=== PATIENT | female | born 1950 | race Caucasian/White ===

== ENCOUNTER → 2016-03-13 | Outpatient (CLI) | payer OTHER ==
[~2016-03-13] VITALS: Ht 165.1 cm; Wt 79.4 kg
[~2016-03-13] MED LIST: LIDOCAINE 2% INJ 100 MG/5 ML SDV (FOR ANES.) As Ordered ONE; LITH300C PO; PROPOFOL 500 MG/50 ML VIAL As Ordered ONE; TYLE1TAB5 PO
[2016-03-13] MEDS: NS 1,000 ML IV SCH ×2 (10:00→12:15)
--- NOTE | 2016-03-13 13:01 | ROOR ---
Patient Name: Josie Jorge Procedure Date: 03/13/2016 12:42 PM Date of : 1950 Age: 65 Room: [facility] [place] Gender: Female Note Status: Finalized Procedure: Upper GI endoscopy Indications: Dysphagia Providers: Santy Kapoor MD Referring MD: NEREIDA REYES NP Requesting Provider: Medicines: Monitored Anesthesia Care Complications: No immediate complications. Procedure: Pre-Anesthesia Assessment: - The heart rate, respiratory rate, oxygen saturations, blood pressure, adequacy of pulmonary ventilation, and response to care were monitored throughout the procedure. The Endoscope was introduced through the mouth, and advanced to the second part of duodenum. The upper GI endoscopy was accomplished without difficulty. The patient tolerated the procedure well. Findings: The Z-line was regular and was found 39 cm from the incisors. A small hiatus hernia was present. No other significant abnormalities were identified in a careful examination of the stomach. The exam of the duodenum was otherwise normal. Impression: - Z-line regular, 39 cm from the incisors. - Small hiatus hernia. - No specimens collected. - The examination was otherwise normal. Recommendation: - Patient has a contact number available for emergencies. The signs and symptoms of potential delayed complications were discussed with the patient. Return to normal activities tomorrow. Written discharge instructions were provided to the patient. - High fiber diet. - Discharge patient to home. - Continue present medications. - Return to referring physician. - The findings and recommendations were discussed with the patient's family. Santy Kapoor MD Santy Kapoor MD 03/13/2016 1:00:39 PM This report has been signed electronically. Number of Addenda: 0 Note Initiated On: 03/13/2016 12:42 PM Estimated Blood Loss: Estimated blood loss: none.
--- NOTE | 2016-03-13 13:17 | ROOR ---
Patient Name: Josie Jorge Procedure Date: 03/13/2016 12:43 PM Date of : 1950 Age: 65 Room: [facility] Gender: Female Note Status: Finalized Procedure: Colonoscopy to Cecum Indications: Screening for colorectal malignant neoplasm, Last colonoscopy 10 years ago Providers: Santy Kapoor MD Referring MD: NEREIDA REYES NP Requesting Provider: Medicines: Monitored Anesthesia Care Complications: No immediate complications. Procedure: Pre-Anesthesia Assessment: - The heart rate, respiratory rate, oxygen saturations, blood pressure, adequacy of pulmonary ventilation, and response to care were monitored throughout the procedure. The Colonoscope was introduced through the anus and advanced to the cecum, identified by appendiceal orifice and ileocecal valve. The colonoscopy was performed without difficulty. The patient tolerated the procedure well. The quality of the bowel preparation was unsatisfactory. Findings: The perianal and digital rectal examinations were normal. Non-bleeding internal hemorrhoids were found during retroflexion. The hemorrhoids were small and Grade I (internal hemorrhoids that do not prolapse). Liquid stool was found in the entire colon, precluding visualization. No additional abnormalities were found on retroflexion. Impression: - Preparation of the colon was unsatisfactory. - Non-bleeding internal hemorrhoids. - Stool in the entire examined colon. - No specimens collected. - The exam was otherwise normal to the cecum. Recommendation: - Patient has a contact number available for emergencies. The signs and symptoms of potential delayed complications were discussed with the patient. Return to normal activities tomorrow. Written discharge instructions were provided to the patient. - High fiber diet. - Discharge patient to home. - Continue present medications. - Repeat colonoscopy in 3 years because the bowel preparation was suboptimal. - Return to referring physician. - The findings and recommendations were discussed with the patient's family. Santy Kapoor MD Santy Kaopor MD 03/13/2016 1:17:43 PM This report has been signed electronically. Number of Addenda: 0 Note Initiated On: 03/13/2016 12:43 PM Estimated Blood Loss: Estimated blood loss: none.
[2016-03-13 13:40] VITALS: BP 126/69
== END ==
LOC: M OPP 11:06
PROVIDERS: ATTEND Internal Medicine Gastroenterology
DX: Z12.11 Encounter for screening for malignant neoplasm of colon (principal); K64.0 First degree hemorrhoids; R12 Heartburn; K44.9 Diaphragmatic hernia without obstruction or gangrene; E78.5 Hyperlipidemia, unspecified; G47.30 Sleep apnea, unspecified; R06.83 Snoring; M17.11 Unilateral primary osteoarthritis, right knee; Z80.3 Family history of malignant neoplasm of breast; Z79.899 Other long term (current) drug therapy

== ENCOUNTER → 2016-09-30 | Outpatient (REF) | payer MEDICARE ==
[~2016-09-30] MED LIST changes: -LIDOCAINE 2% INJ 100 MG/5 ML SDV (FOR ANES.) As Ordered ONE; -PROPOFOL 500 MG/50 ML VIAL As Ordered ONE
[2016-09-30 17:08] LABS: ALBUMIN 3.8 GM/DL (3.2-5.2); ALBUMIN/GLOBULIN RATIO 1.23 (1.00-1.93); BILIRUBIN,TOTAL 0.5 MG/DL (0.2-1.0); CALCIUM LEVEL 9.8 MG/DL (8.8-10.2); CREATININE FOR GFR 1.72 MG/DL (0.55-1.02); GLOMERULAR FILTRATION RATE 31.7 (>45); POTASSIUM SERUM 4.2 MEQ/L (3.5-5.1); THYROXINE (T4) 8.7 UG/DL (4.5-12.0); TOTAL PROTEIN 6.9 GM/DL (6.4-8.2)
[2016-09-30 17:10] LABS: LITHIUM LEVEL 0.96 MEQ/L (0.60-1.20)
== END ==
LOC: M LABDRAW1 15:52
PROVIDERS: ATTEND Psychiatry & Neurology Psychiatry
DX: E07.9 Disorder of thyroid, unspecified (principal)

== ENCOUNTER → 2017-01-31 | Outpatient (CLI) | payer MEDICARE ==
--- NOTE | 2017-01-31 10:33 | REPMRS ---
Patient History The patient states she had a clinical breast exam in 11/2016. Patient is postmenopausal. Family history of breast cancer in mother at age 70. Digital Woman Screen Mammo: January 31, 2017 - Exam #: [id number] Bilateral CC and MLO view(s) were taken. Technologist: Claudia Mansfield Technologist Prior study comparison: December 01, 2015, digital woman screen mammo performed at [facility]. February 23, 2014, bilateral digital mammo screening bilat, performed at [facility]. September 17, 2012, bilateral digital mammo screening bilat, performed at [facility]. FINDINGS: There are scattered fibroglandular densities. There has been no change in the appearance of the mammogram from the prior studies. There is a mild amount of residual fibroglandular tissue which is fairly symmetric. There is no interval development of dominant mass, architectural distortion, or clustered microcalcification suggestive of malignancy. Scattered lymph nodes are seen in the axillae. No significant changes when compared with prior studies. ASSESSMENT: BI-RADS/ACR category 2 mammogram. Benign finding(s). Recommendation Routine screening mammogram in 1 year (for women over age 40). This mammogram was interpreted with the aid of an FDA-approved computer-aided dectection system. A. Negative x-ray reports should not delay biopsy if a dominant or clinically suspicious mass is present. B. Four to eight percent of cancers are not identified by mammography. C. Adenosis and dense breast may obscure an underlying neoplasm. Electronically Signed By: Phil Eden MD 01/31/17 [id number]
== END ==
LOC: M WHC 08:26
PROVIDERS: ATTEND Nurse Practitioner Family
DX: Z12.31 Encounter for screening mammogram for malignant neoplasm of breast (principal); Z78.0 Asymptomatic menopausal state; Z85.3 Personal history of malignant neoplasm of breast

== ENCOUNTER → 2017-06-04 | Outpatient (REF) | payer MEDICARE ==
[2017-06-04 13:01] LABS: ALBUMIN 3.6 GM/DL (3.2-5.2); ALBUMIN/GLOBULIN RATIO 1.16 (1.00-1.93); ALKALINE PHOSPHATASE 89 U/L (45-117); ALT/SGPT 19 U/L (12-78); ANION GAP 9 MEQ/L (8-16); AST/SGOT 13 U/L (7-37); BILIRUBIN,TOTAL 0.4 MG/DL (0.2-1.0); BLOOD UREA NITROGEN 17 MG/DL (7-18); CALCIUM LEVEL 9.6 MG/DL (8.8-10.2); CARBON DIOXIDE LEVEL 22 MEQ/L (21-32); CHLORIDE LEVEL 112 MEQ/L (98-107); CREATININE FOR GFR 1.96 MG/DL (0.55-1.30); FREE THYROXINE INDEX 2.9 % (1.3-4.8); GLOMERULAR FILTRATION RATE 27.2 (>45); GLUCOSE, FASTING 268 MG/DL (70-100); POTASSIUM SERUM 3.8 MEQ/L (3.5-5.1); SODIUM LEVEL 143 MEQ/L (136-145); T UPTAKE 33 % (30-39); THYROXINE (T4) 8.9 UG/DL (4.5-12.0); TOTAL PROTEIN 6.7 GM/DL (6.4-8.2)
[2017-06-04 13:08] LABS: LITHIUM LEVEL 0.94 MEQ/L (0.60-1.20)
== END ==
LOC: M LABDRAW1 11:54
DX: Z79.899 Other long term (current) drug therapy (principal)
CPT/HCPCS: 80178

== ENCOUNTER → 2017-07-16 | Outpatient (REF) | payer MEDICARE ==
[2017-07-17 10:02] LABS: APPEARANCE, URINE CLEAR (CLEAR); BACTERIA, URINE AUTO NEGATIVE (NEGATIVE); BILIRUBIN, URINE AUTO NEGATIVE (NEGATIVE); BLOOD, URINE BLOOD NEGATIVE (NEGATIVE); COLOR, URINE STRAW (YELLOW); GLUCOSE, URINE (UA) AUTO NEGATIVE (NEGATIVE); KETONE, URINE AUTO NEGATIVE (NEGATIVE); LEUKOCYTE ESTERASE, URINE AUTO NEGATIVE (NEGATIVE); NITRITE, URINE AUTO NEGATIVE (NEGATIVE); PROTEIN, URINE AUTO NEGATIVE (NEGATIVE); RBC, URINE AUTO 0 /HPF (0-3); SPECIFIC GRAVITY URINE AUTO 1.005 (1.002-1.035); SQUAMOUS EPITHELIAL CELL UR AU 1 /HPF (0-6); UROBILINOGEN, URINE AUTO 0.2 mg/dL (0.0-2.0); WBC, URINE AUTO 1 /HPF (0-3)
== END ==
LOC: M SMT 09:36
DX: R35.0 Frequency of micturition (principal)
CPT/HCPCS: 81001

== ENCOUNTER → 2018-02-03 | Outpatient (CLI) | payer MEDICARE | LOC: M RAD 09:20 | DX: Z12.31 Encounter for screening mammogram for malignant neoplasm of breast (principal) | CPT/HCPCS: 77067 ==

== ENCOUNTER 2018-02-04 01:30 | Emergency (ER) | payer MEDICARE | END 2018-02-04 02:12 | disposition home or self-care (01) | LOC: M ED 01:30 | DX: K11.20 Sialoadenitis, unspecified (principal); F31.9 Bipolar disorder, unspecified; M19.90 Unspecified osteoarthritis, unspecified site; Z79.899 Other long term (current) drug therapy | CPT/HCPCS: 99282 ==

== ENCOUNTER → 2018-02-13 | Outpatient (REF) | payer MEDICARE ==
[~2018-02-13] MED LIST changes: +[UNRECOGNIZED DRUG - OTHER] MT
[2018-02-13 12:21] LABS: ALBUMIN 3.8 GM/DL (3.2-5.2); BILIRUBIN,TOTAL 0.4 MG/DL (0.2-1.0); CALCIUM LEVEL 9.8 MG/DL (8.8-10.2); CREATININE FOR GFR 1.95 MG/DL (0.55-1.30); GLOMERULAR FILTRATION RATE 27.3 (>45); LITHIUM LEVEL 1.04 MEQ/L (0.60-1.20); POTASSIUM SERUM 4.3 MEQ/L (3.5-5.1); TOTAL PROTEIN 6.8 GM/DL (6.4-8.2)
== END ==
LOC: M LABDRAW1 10:05
PROVIDERS: ATTEND Psychiatry & Neurology Psychiatry
DX: Z51.81 Encounter for therapeutic drug level monitoring (principal); Z79.899 Other long term (current) drug therapy
CPT/HCPCS: 36415; 80053; 80178; G0463

== ENCOUNTER → 2018-03-03 | Outpatient (CLI) | payer MEDICARE ==
--- NOTE | 2018-03-03 09:28 | REP ---
URINARY TRACT SONOGRAPHY: HISTORY: Chronic kidney disease stage III. FINDINGS: The urinary bladder is not well distended at the time of scanning. Incidental note is made of a cystic lesion in the right adnexa consistent with an ovarian cyst. This measures 5.3 x 4.3 x 4.0 cm in greatest diameter. No free fluid. Renal cortical echogenicity pattern is increased bilaterally consistent with chronic medical renal disease. There is no evidence of hydronephrosis on either side. Mild diffuse cortical thinning is seen. Right renal dimensions are 10.3 x 5.1 x 4.6 cm. Left kidney measures 10.2 x 5.1 x 5.0 cm. No mass lesion is seen. There is a 1 cm cyst in the lower pole of the left kidney. There are two cysts in the periphery of the right kidney including a 1.7 cm cyst in its lower pole and a 2.8 cm cyst in the periphery of the mid pole on the right. IMPRESSION: Small bilateral renal cysts. Hyperechoic renal cortical parenchyma consistent with chronic medical renal disease. No hydronephrosis. Incidental 5.3 cm simple cyst in the right adnexal region consistent with a right ovarian cyst. Electronically Signed by Mainor Cuevas MD 03/03/2018 01:27 P
== END ==
LOC: M RAD 07:12
PROVIDERS: ATTEND Internal Medicine Nephrology
DX: N18.3 Chronic kidney disease, stage 3 (moderate) (principal); E21.0 Primary hyperparathyroidism

== ENCOUNTER → 2018-03-05 | Outpatient (CLI) | payer MEDICARE ==
--- NOTE | 2018-03-09 14:53 | DEXA ---
AP SPINE L1 - L4 1.070 -1.0 0.6 LT FEMUR TOTAL 0.918 -0.7 0.6 LT NECK 0.832 -1.5 0.0 RT FEMUR TOTAL 0.830 -1.4 -0.1 RT NECK 0.749 -2.1 -0.6 TOTAL BODY TOTAL OTHER COMMENTS: There is low bone density of the spine and hips. The density of the spine has increased 1.6% since 10/31/2010. The density of the left hip has decreased 9.6% since 10/31/2010. The density of the right hip has decreased 11.9% since 10/31/2010. FOLLOW-UP: Recommendation for the next bone density exam: 2 years. SUSANNE
== END ==
LOC: M WHC 06:51
PROVIDERS: ATTEND Internal Medicine Nephrology
DX: M81.8 Other osteoporosis without current pathological fracture (principal); E21.0 Primary hyperparathyroidism

== ENCOUNTER → 2018-03-16 | Outpatient (CLI) | payer MEDICARE ==
--- NOTE | 2018-03-16 15:34 | REP ---
NUCLEAR PARATHYROID SESTAMIBI SCAN WITH SPECT IMAGING: Following the intravenous administration of 27.5 mCi of technetium-99m sestamibi, images of the neck are performed in the anterior and both anterior oblique projections at 15 minutes and 3 hours postinjection. Additional delayed SPECT images are performed in the axial, coronal, and sagittal planes. Initial images show diffuse increased uptake throughout both lobes of the thyroid. On delayed images there is bilateral symmetrical washout. However there is a small focus of mildly increased activity asymmetrically in the region of the superior left thyroid bed suggesting a parathyroid adenoma at this location. IMPRESSION: Findings suggestive of parathyroid adenoma in the region of the superior left thyroid bed. Electronically Signed by Wilbert Lopez MD 03/16/2018 05:11 P
== END ==
LOC: M RAD 09:27
PROVIDERS: ATTEND Internal Medicine Nephrology
DX: E21.3 Hyperparathyroidism, unspecified (principal); N18.3 Chronic kidney disease, stage 3 (moderate)
CPT/HCPCS: 78070; 78803; A9500

== ENCOUNTER → 2018-08-14 | Outpatient (REF) | payer MEDICARE | LOC: M LABDRAW1 13:34 | PROVIDERS: ATTEND Psychiatry & Neurology Psychiatry | DX: Z79.899 Other long term (current) drug therapy (principal) ==

== ENCOUNTER → 2019-02-08 | Outpatient (REF) | payer MEDICARE | LOC: M LABDRAW1 11:36 | PROVIDERS: ATTEND Psychiatry & Neurology Psychiatry | DX: Z79.899 Other long term (current) drug therapy (principal) ==

== ENCOUNTER 2019-02-20 15:18 | Emergency (ER) | payer MEDICARE ==
[~2019-02-20] VITALS: Ht 165.1 cm; Wt 79.6 kg
[2019-02-20] MEDS ORDERED: SIMV20TA22 PO (15:29)
[2019-02-20] MEDS ORDERED: CALC1CAP31 PO (15:29)
[2019-02-20 16:49] LABS: AMPHETAMINES LEVEL URINE NEGATIVE (NEGATIVE); BARBITURATES URINE NEGATIVE (NEGATIVE); BENZODIAZEPINES URINE NEGATIVE (NEGATIVE); CANNABINOIDS URINE NEGATIVE (NEGATIVE); COCAINE METABOLITE URINE NEGATIVE (NEGATIVE); METHADONE URINE NEGATIVE (NEGATIVE); OPIATES URINE NEGATIVE (NEGATIVE); PHENCYCLIDINE URINE NEGATIVE (NEGATIVE)
[2019-02-20 16:52] LABS: HEMATOCRIT 40.7 % (36.0-47.0); HEMOGLOBIN 12.7 g/dl (12.0-15.5); MEAN CORPUSCULAR HGB CONC 31.2 g/dl (32.0-36.5); MEAN CORPUSCULAR VOLUME 89.8 fl (80.0-96.0); PLATELET COUNT, AUTOMATED 333 10^3/uL (150-450); RED BLOOD COUNT 4.53 10^6/uL (4.00-5.40); WHITE BLOOD COUNT 9.6 10^3/uL (4.0-10.0)
[2019-02-20 17:01] LABS: ACETAMINOPHEN LEVEL < 2.0 UG/ML (10.0-30.0); ALT/SGPT 20 U/L (12-78); BILIRUBIN,DIRECT 0.1 MG/DL (0.0-0.2); BILIRUBIN,TOTAL 0.5 MG/DL (0.2-1.0); BLOOD UREA NITROGEN 23 MG/DL (7-18); CALCIUM LEVEL 9.2 MG/DL (8.8-10.2); CARBON DIOXIDE LEVEL 20 MEQ/L (21-32); CHLORIDE LEVEL 111 MEQ/L (98-107); ETHYL ALCOHOL (ETHANOL) < 0.003 % (0.000-0.010); GLOMERULAR FILTRATION RATE 22.5 (>45); GLUCOSE, FASTING 135 MG/DL (70-100); POTASSIUM SERUM 4.4 MEQ/L (3.5-5.1); SALICYLATE LEVEL < 1.7 MG/DL (5.0-30.0); SODIUM LEVEL 139 MEQ/L (136-145); TOTAL PROTEIN 7.2 GM/DL (6.4-8.2)
[2019-02-20 17:49] VITALS: BP 155/79
[2019-02-20 17:53] LABS: LITHIUM LEVEL 1.38 MEQ/L (0.60-1.20)
== END 2019-02-20 17:59 | disposition home or self-care (01) ==
LOC: M ED 15:18
DX: F41.9 Anxiety disorder, unspecified (principal); F31.9 Bipolar disorder, unspecified
CPT/HCPCS: 80048; 80076; 80178; 80307; 84443; 85027; 99284; G0480

== ENCOUNTER 2019-02-25 11:09 | Observation (INO) | payer MEDICARE ==
[~2019-02-25] VITALS: Ht 165.1 cm; Wt 80.0 kg
[~2019-02-25 11:09] MED LIST changes: +CALC1CAP31 PO; +SIMV20TA22 PO
[2019-02-25] MEDS ORDERED: SOLI10TA (11:18)
[2019-02-25 12:43] LABS: HEMATOCRIT 39.4 % (36.0-47.0); HEMOGLOBIN 12.1 g/dl (12.0-15.5); MEAN CORPUSCULAR HGB CONC 30.7 g/dl (32.0-36.5); MEAN CORPUSCULAR VOLUME 91.2 fl (80.0-96.0); PLATELET COUNT, AUTOMATED 361 10^3/uL (150-450); RED BLOOD COUNT 4.32 10^6/uL (4.00-5.40); WHITE BLOOD COUNT 6.9 10^3/uL (4.0-10.0)
[2019-02-25 13:26] LABS: ACETAMINOPHEN LEVEL < 2.0 UG/ML (10.0-30.0); ALBUMIN 3.7 GM/DL (3.2-5.2); ALT/SGPT 18 U/L (12-78); BILIRUBIN,DIRECT < 0.1 MG/DL (0.0-0.2); BILIRUBIN,TOTAL 0.4 MG/DL (0.2-1.0); BLOOD UREA NITROGEN 19 MG/DL (7-18); CALCIUM LEVEL 9.1 MG/DL (8.8-10.2); CARBON DIOXIDE LEVEL 21 MEQ/L (21-32); CHLORIDE LEVEL 114 MEQ/L (98-107); CREATININE FOR GFR 2.29 MG/DL (0.55-1.30); ETHYL ALCOHOL (ETHANOL) < 0.003 % (0.000-0.010); GLOMERULAR FILTRATION RATE 22.6 (>45); GLUCOSE, FASTING 142 MG/DL (70-100); LITHIUM LEVEL 2.07 MEQ/L (0.60-1.20); SALICYLATE LEVEL < 1.7 MG/DL (5.0-30.0); SODIUM LEVEL 141 MEQ/L (136-145); TOTAL PROTEIN 6.8 GM/DL (6.4-8.2)
[2019-02-25 13:32] LABS: AMPHETAMINES LEVEL URINE NEGATIVE (NEGATIVE); BARBITURATES URINE NEGATIVE (NEGATIVE); BENZODIAZEPINES URINE NEGATIVE (NEGATIVE); CANNABINOIDS URINE NEGATIVE (NEGATIVE); COCAINE METABOLITE URINE NEGATIVE (NEGATIVE); METHADONE URINE NEGATIVE (NEGATIVE); OPIATES URINE NEGATIVE (NEGATIVE); PHENCYCLIDINE URINE NEGATIVE (NEGATIVE)
--- NOTE | 2019-02-25 13:32 | REP ---
CT brain: 02/25/2019. Indication: Slurred speech. Stroke. Comparison: MRI brain dated 11/15/2010. Technique: Unenhanced axial CT images of the brain were obtained from skull base to vertex with coronal reconstructions provided. Findings: There is no evidence of acute intracranial hemorrhage, acute cortical infarction, mass effect or hydrocephalous. Hyperdensity within the anterior interhemispheric fissure is noted on page/image seven on the axial images. Mild diffuse volume loss is present. Impression: Small hyperdensity within the anterior interhemispheric fissure is present and clot within an A2 segment is not excluded. There are no additional findings of acute stroke. No intracranial hemorrhage. Electronically Signed by Alen Herndon DO 02/25/2019 01:24 P
--- NOTE | 2019-02-25 15:14 | REP ---
MRI brain: 02/25/2019. Indication: Stroke. Comparison: 11/15/2010. Technique: Multiplanar short and long TR sequences of the brain were performed without IV Gadolinium. Findings: Image quality is degraded by patient motion. There are no areas of restricted diffusion to suggest an acute infarction. There is no evidence of intracranial mass effect, hydrocephalus or hemorrhage. No significant signal abnormalities are present within the brainstem or brain parenchyma. The midline structures, and craniocervical junction are unremarkable. The large intracranial flow voids are also unremarkable. Impression: No acute intracranial process detected. Electronically Signed by Alen Herndon DO 02/25/2019 03:05 P
--- NOTE | 2019-02-25 15:15 | REP ---
Intracranial MRA: 02/25/2019. Indication: Stroke. Abnormal CT. Comparison: None. Technique: 3-D [id number] imaging of the intracranial vessels were performed with rotational imaging provided. Findings: Image quality is degraded by patient motion. There is no intracranial high-grade stenosis, vessel occlusion, aneurysm or AVM. Specifically, the visualized bilateral CEZAR vessels are patent. Impression: No intracranial high-grade stenosis or vessel occlusion detected. Electronically Signed by Alen Herndon DO 02/25/2019 03:07 P
[2019-02-25] MEDS ORDERED: SYST1SOL OU (15:49)
[2019-02-25] MEDS ORDERED: POLYVINYL ALCOHOL OPHTH SOLN 15 ML(LIQUITEARS) OU PRN (18:00)
--- NOTE | 2019-02-25 18:11 | HPEPDOC ---
[facility] Medical History & Physical Date of Admission Feb 25, 2019 Date of Service: Feb 25, 2019 Attending Physician: DOC AMEZQUITA MD History and Physical CHIEF COMPLAINT: confusion, tremors HISTORY OF PRESENT ILLNESS: 68 y.o female w/ PMH of CKD IV, Bipolar depression & HLD presents from home with confusion & tremors. These symptoms started 1-2 weeks ago, have been progressively worsening, she presented to the ED 4 days ago for the same symptoms and was discharged with outpatient follow up. She returned today as symptoms have continued worsening. She has associated symptoms consisting of difficulty with word finding, unnecessary repetition & slurred speech. She underwent CT & MRI head in the ED with no evidence of acute pathology. She was found to have elevated lithium levels of >2, of note, lithium level was 1.36 when she presented 4 days ago. After discussion with daughter, it appears that patient also has an bottle of lithium from 2018 mixed in with her medications so it may be that she was taking double the dose from two separate bottles. Patient is unsure whether that was the case and reports that she just takes pills from all her bottles without actually reading the labels everyday. She denies any SOB, CP, nausea, vomiting, abdominal pain, diarrhea or constipation. 10 point review of system was negative except for above. PAST MEDICAL HISTORY: 1. CKD IV 2. Bipolar depression 3. HLD PAST SURGICAL HISTORY: 1. Parathyroidectomy SOCIAL HISTORY: Never smoker social alcohol use denies drug use FAMILY HISTORY: Mother had breast cancer ALLERGIES: Please see below. HOME MEDICATIONS: Please see below. PHYSICAL EXAMINATION: VITAL SIGNS: See below GENERAL APPEARANCE: No distress HEENT: Normocephalic, atraumatic, moist mucous membranes CARDIOVASCULAR: S1, S2, no murmurs LUNGS: clear to auscultation ABDOMEN: Soft, non-tender, non-distended, +BS EXTREMITIES: ROM intact NEUROLOGICAL: No focal deficits PSYCHIATRIC: calm & cooperative LABORATORY DATA: See below. IMAGING: CT & MRI head negative for acute pathology MICROBIOLOGY: Please see below. ASSESSMENT: 68 y.o female w/ PMH of CKD IV, Bipolar depression & HLD is admitted for [place] toxicity. PLAN: 1. [place] toxicity - Likely accidental overdose, admit for observation, Tele monitoring, will trend [place] levels. Renal function stable 2. CKD IV - unknown etiology, creatinine close to baseline, will monitor. 3. Bipolar Depression - Hold [place] for now, will restart when levels within therapeutic range. 4. HLD - continue statin DVT Prophylaxis - Heparin SubQ GI Prophylaxis - not needed Vital Signs Vital Signs Date Time Temp Pulse Resp B/P (MAP) Pulse Ox O2 Delivery O2 Flow Rate FiO2 02/25/19 11:40 02/25/19 11:11 97.5 75 20 100 Room Air Laboratory Data Labs 24H Laboratory Tests 2 02/25/19 12:35: Nucleated Red Blood Cells % (auto) 0.0, Anion Gap 6L, Glomerular Filtration Rate 22.6L, Calcium Level 9.1, Total Bilirubin 0.4, Direct Bilirubin < 0.1, Aspartate Amino Transf (AST/SGOT) 9, Alanine Aminotransferase (ALT/SGPT) 18, Alkaline Phosphatase 74, Total Protein 6.8, Albumin 3.7, Albumin/Globulin Ratio 1.19, Thyroid Stimulating Hormone (TSH) 2.900, Salicylates Level < 1.7L, Acetaminophen Level < 2.0L, [place] Level 2.07*H, Ethyl Alcohol Level < 0.003 02/25/19 12:57: Urine Opiates Screen NEGATIVE, Urine Methadone Screen NEGATIVE, Urine Barbiturates Screen NEGATIVE, Urine Phencyclidine Screen NEGATIVE, Urine Amphetamines Screen NEGATIVE, Urine Benzodiazepines Screen NEGATIVE, Urine Cocaine Metabolite Screen NEGATIVE, Urine Cannabinoids Screen NEGATIVE CBC/BMP Laboratory Tests 02/25/19 12:35 Home Medications Scheduled Calcitriol (Calcitriol) 0.25 Mcg Capsule, 0.25 MCG PO QHS Shellman Carbonate (Shellman Carbonate) 300 Mg Cap, 300 MG PO QAM [place] Carbonate ([place] Carbonate) 300 Mg Cap, 600 MG PO QHS Simvastatin (Simvastatin) 20 Mg Tablet, 20 MG PO QHS Scheduled PRN Propylene Glycol/Peg 400 (Systane 0.3-0.4% Eye Drops) 15 Ml Drops, 1 DROP OU QID PRN for DRY EYES USES PRESERVATIVE FREE Allergies Coded Allergies: No Known Allergies (Unverified , 03/12/16) A-FIB/CHADSVASC A-FIB History Current/History of A-Fib/PAF?: No DOC AMEZQUITA MD Feb 25, 2019 18:11
[2019-02-25 19:00] VITALS: BP 141/59
[2019-02-25] MEDS: HEPARIN SOD (PORCINE) 5000 UNITS/ML VIAL SC SCH (20:50)
[2019-02-25] MEDS ORDERED: SIMVASTATIN 20 MG TAB PO SCH (21:00)
[2019-02-25] MEDS ORDERED: CALCITRIOL 0.25 MCG CAP (S0169) PO SCH (21:00)
[2019-02-25 22:00] VITALS: BP 130/70
[2019-02-26] MEDS: HEPARIN SOD (PORCINE) 5000 UNITS/ML VIAL SC SCH (05:37)
[2019-02-26 06:00] VITALS: BP 149/67
[2019-02-26 06:03] LABS: HEMATOCRIT 37.8 % (36.0-47.0); HEMOGLOBIN 11.7 g/dl (12.0-15.5); MEAN CORPUSCULAR VOLUME 90.4 fl (80.0-96.0); PLATELET COUNT, AUTOMATED 353 10^3/uL (150-450); RED BLOOD COUNT 4.18 10^6/uL (4.00-5.40); WHITE BLOOD COUNT 7.5 10^3/uL (4.0-10.0)
[2019-02-26 06:37] LABS: ALBUMIN 3.8 GM/DL (3.2-5.2); BILIRUBIN,TOTAL 0.4 MG/DL (0.2-1.0); CREATININE FOR GFR 2.2 MG/DL (0.55-1.30); GLOMERULAR FILTRATION RATE 23.7 (>45); LITHIUM LEVEL 1.56 MEQ/L (0.60-1.20); POTASSIUM SERUM 4.7 MEQ/L (3.5-5.1); TOTAL PROTEIN 6.8 GM/DL (6.4-8.2)
--- NOTE | 2019-02-26 14:52 | ECGEPIP ---
[facility] - ED Test Date: 2019-02-25 Pat Name: PABLITO BRAMBILA Department: Room: - Gender: Female Product Test Specialist: ashwini : 1950 Requested By: Wing Zamudio Order Number: [id number] Reading MD: Bhavik Bellamy Measurements Intervals [place] Rate: 60 P: 8 FL: 220 QRS: -15 QRSD: 82 T: 79 QT: 424 QTc: 426 Interpretive Statements SINUS RHYTHM WITH FIRST DEGREE AV BLOCK NONSPECIFIC ST & T-WAVE ABNORMALITY Comparison tracing not on file Electronically Signed on 02-26-2019 14:51:51 EST by Bhavik Bellamy
--- NOTE | 2019-02-26 22:32 | DS.PDOC ---
Discharge Summary General Date of Admission Feb 25, 2019 at 11:10 Date of Discharge 02/26/19 Attending Physician: DOC AMEZQUITA MD Discharge Summary PROCEDURES PERFORMED DURING STAY: None ADMITTING DIAGNOSES: 1. [place] toxicity DISCHARGE DIAGNOSES: 1. [place] toxicity COMPLICATIONS/CHIEF COMPLAINT: Bipolar D/O;Ckd Stage Iv;Hld;[place] Toxicity. HISTORY OF PRESENT ILLNESS: HISTORY OF PRESENT ILLNESS: 68 y.o female w/ PMH of CKD IV, Bipolar depression & HLD presents from home with confusion & tremors. These symptoms started 1-2 weeks ago, have been progressively worsening, she presented to the ED 4 days ago for the same symptoms and was discharged with outpatient follow up. She returned today as symptoms have continued worsening. She has associated symptoms consisting of difficulty with word finding, unnecessary repetition & slurred speech. She underwent CT & MRI head in the ED with no evidence of acute pathology. She was found to have elevated lithium levels of >2, of note, lithium level was 1.36 when she presented 4 days ago. After discussion with daughter, it appears that patient also has an bottle of lithium from 2017 mixed in with her medications so it may be that she was taking double the dose from two separate bottles. Patient is unsure whether that was the case and reports that she just takes pills from all her bottles without actually reading the labels everyday. She denies any SOB, CP, nausea, vomiting, abdominal pain, diarrhea or constipation. HOSPITAL COURSE: Patient has had significant improvement in mental status since yesterday, she is nearly at baseline, has had significant improvement in [place] levels (down to ~1.5). She has been evaluated by PT & recommended to have home PT w/ 4 wheeled walker prescription. She is cleared for discharge w/ outpatient follow up with her Psychiatrist & PCP on Friday. She is advised to hold her [place] until she repeats [place] levels on Friday. Patient & daughter at bedside understand and agree w/ discharge plan. She is clinically and hemodynamically stable for discharge and outpatient follow up. DISCHARGE MEDICATIONS: Please see below. ALLERGIES: Please see below. PHYSICAL EXAMINATION: VITAL SIGNS: See below GENERAL APPEARANCE: No distress HEENT: Normocephalic, atraumatic, moist mucous membranes CARDIOVASCULAR: S1, S2, no murmurs LUNGS: clear to auscultation ABDOMEN: Soft, non-tender, non-distended, +BS EXTREMITIES: ROM intact NEUROLOGICAL: No focal deficits PSYCHIATRIC: calm & cooperative LABORATORY DATA: Please see below. PROGNOSIS: Fair ACTIVITY: As tolerated. DIET: Cardiac DISCHARGE PLAN: Follow up w/ Psychiatrist & PCP on Friday. DISPOSITION: Home, Self-Care. DISCHARGE INSTRUCTIONS: 1. as above DISCHARGE CONDITION: Stable TIME SPENT ON DISCHARGE: Greater than 34 minutes. Vital Signs/I&Os Vital Signs Date Time Temp Pulse Resp B/P (MAP) Pulse Ox O2 Delivery O2 Flow Rate FiO2 02/26/19 06:00 97.3 71 18 149/67 (94) 99 Room Air I&O- Last 24 Hours up to 6 AM 02/26/19 06:00 Intake Total 480 ml Output Total 0 ml Balance 480 ml Laboratory Data Labs 24H Laboratory Tests 2 02/26/19 05:21: Nucleated Red Blood Cells % (auto) 0.0, Anion Gap 7L, Glomerular Filtration Rate 23.7L, Calcium Level 9.0, Magnesium Level 3.0H, Total Bilirubin 0.4, Aspartate Amino Transf (AST/SGOT) 15, Alanine Aminotransferase (ALT/SGPT) 22, Alkaline Phosphatase 78, Total Protein 6.8, Albumin 3.8, Albumin/Globulin Ratio 1.27, [place] Level 1.56H CBC/BMP Laboratory Tests 02/26/19 05:21 Discharge Medications Scheduled Calcitriol (Calcitriol) 0.25 Mcg Capsule, 0.25 MCG PO QHS, (Reported) Simvastatin (Simvastatin) 20 Mg Tablet, 20 MG PO QHS, (Reported) Scheduled PRN Propylene Glycol/Peg 400 (Systane 0.3-0.4% Eye Drops) 15 Ml Drops, 1 DROP OU QID PRN for DRY EYES, (Reported) USES PRESERVATIVE FREE Allergies Coded Allergies: No Known Allergies (Unverified , 03/12/16) DOC AMEZQUITA MD Feb 26, 2019 22:32
[2019-02-27] MEDS ORDERED: LITH300C PO ×2 (20:54→23:38)
== END 2019-02-26 13:14 | disposition home or self-care (01) ==
LOC: M ED 11:09 → M ED INP 11:10 → ENRESERV 18:09 → M MSPAV 19:00
PROVIDERS: ADMIT Internal Medicine; ATTEND Internal Medicine
DX: T43.591A Poisoning by other antipsychotics and neuroleptics, accidental (unintentional), initial encounter (principal); R25.1 Tremor, unspecified; R41.0 Disorientation, unspecified; R93.0 Abnormal findings on diagnostic imaging of skull and head, not elsewhere classified; N18.4 Chronic kidney disease, stage 4 (severe); F31.9 Bipolar disorder, unspecified; E78.5 Hyperlipidemia, unspecified; E11.22 Type 2 diabetes mellitus with diabetic chronic kidney disease; G47.33 Obstructive sleep apnea (adult) (pediatric); M19.90 Unspecified osteoarthritis, unspecified site; I34.0 Nonrheumatic mitral (valve) insufficiency; Z79.899 Other long term (current) drug therapy

== ENCOUNTER 2019-02-27 20:11 | Inpatient (IN) | payer MEDICARE ==
[~2019-02-27] VITALS: Ht 167.6 cm; Wt 80.6 kg
[~2019-02-27 20:11] MED LIST changes: +SOLI10TA; +SYST1SOL OU
[2019-02-27 20:52] LABS: BASO % 0.2 % (0.0-1.0); EOS # 0.2 10^3/uL (0.0-0.5); EOS % 1.5 % (0.0-3.0); HEMATOCRIT 41.9 % (36.0-47.0); HEMOGLOBIN 12.9 g/dl (12.0-15.5); LYMPH % 1.9 % (24.0-44.0); MEAN CORPUSCULAR HEMOGLOBIN 27.8 pg (27.0-33.0); MEAN CORPUSCULAR HGB CONC 30.8 g/dl (32.0-36.5); MEAN CORPUSCULAR VOLUME 90.3 fl (80.0-96.0); MONO # 0.3 10^3/uL (0.0-0.8); MONO % 3.1 % (0.0-5.0); NEUTROPHILS # 10.3 10^3/uL (1.5-8.5); NEUTROPHILS % 92.9 % (36.0-66.0); PLATELET COUNT, AUTOMATED 277 10^3/uL (150-450); RED BLOOD COUNT 4.64 10^6/uL (4.00-5.40); WHITE BLOOD COUNT 11.1 10^3/uL (4.0-10.0)
[2019-02-27] MEDS ORDERED: LITH300C PO ×2 (20:54→23:38)
[2019-02-27 21:07] LABS: LYMPH # 0.2 10^3/uL (1.5-5.0)
--- NOTE | 2019-02-27 21:46 | REPVR ---
PROCEDURE INFORMATION: Exam: CT Head Without Contrast Exam date and time: 02/27/2019 9:29 PM Age: 68 years old Clinical indication: Altered mental status/memory loss; Confusion or disorientation; Additional info: AMS TECHNIQUE: Imaging protocol: Computed tomography of the head without contrast. Radiation optimization: All CT scans at this facility use at least one of these dose optimization techniques: automated exposure control; mA and/or kV adjustment per patient size (includes targeted exams where dose is matched to clinical indication); or iterative reconstruction. COMPARISON: CT Head without contrast 02/25/2019 12:58 PM FINDINGS: Brain: Normal. No hemorrhage. Unremarkable white matter. No mass effect. Ventricles: Normal. No ventriculomegaly. Bones/joints: Unremarkable. No acute fracture. Sinuses: Visualized sinuses are unremarkable. No fluid levels. Mastoid air cells: Visualized mastoid air cells are well aerated. Soft tissues: Unremarkable. IMPRESSION: No acute intracranial abnormality. Electronically signed by: Valentin Campos On 02/27/2019 21:45:54 PM
[2019-02-27 21:49] LABS: ALBUMIN 3.6 GM/DL (3.2-5.2); ALT/SGPT 21 U/L (12-78); BILIRUBIN,DIRECT 0.1 MG/DL (0.0-0.2); BILIRUBIN,TOTAL 0.6 MG/DL (0.2-1.0); BLOOD UREA NITROGEN 23 MG/DL (7-18); CALCIUM LEVEL 8.5 MG/DL (8.8-10.2); CARBON DIOXIDE LEVEL 19 MEQ/L (21-32); CHLORIDE LEVEL 113 MEQ/L (98-107); CREATININE FOR GFR 2.16 MG/DL (0.55-1.30); ETHYL ALCOHOL (ETHANOL) < 0.003 % (0.000-0.010); GLOMERULAR FILTRATION RATE 24.2 (>45); GLUCOSE, FASTING 185 MG/DL (70-100); LITHIUM LEVEL 0.92 MEQ/L (0.60-1.20); POTASSIUM SERUM 5.2 MEQ/L (3.5-5.1); SODIUM LEVEL 142 MEQ/L (136-145); T UPTAKE 31 % (30-39); THYROXINE (T4) 9.6 UG/DL (4.5-12.0); TOTAL PROTEIN 7.1 GM/DL (6.4-8.2)
[2019-02-27] MEDS ORDERED: ONDANSETRON 4 MG ORAL DISINTEGRATING TAB (Q0162 PER 1MG) PO ONE (22:15)
[2019-02-27] MEDS ORDERED: MOM 30ML SUSPENSION UDC PO PRN (23:00)
[2019-02-27] MEDS ORDERED: MAALOX 30 ML SUSP *UDC PO PRN (23:00)
--- NOTE | 2019-02-27 23:03 | HPEPDOC ---
[facility] Medical History & Physical Date of Admission Feb 27, 2019 Date of Service: Feb 27, 2019 Primary Care Physician: Blanquita Ortega Attending Physician: TINY LIM MD History and Physical TIME OF SERVICE: 11:40 PM CHIEF COMPLAINT: Confusion HISTORY OF PRESENT ILLNESS: This is a 68-year-old female that was discharged Pranay afternoon after being admitted for lithium toxicity; after being discharged, was told not to resume her lithium until she followed up with her PCP for lithium level. Today her lithium levels within therapeutic range. According to the patient's daughter, she developed episodes of confusion earlier on today. After watching an episode of law and order, the patient had difficulties differentiating reality from what she saw on TV and reports seeing things. When asked what she is seeing, she is unable to articulate exactly what she is seeing. She has episodes where she is lucid and able to talk fluently alternating with episodes where she has word finding difficulties and speech that is incongruent with the conversation. Additionally, she has not been sleeping well, been complaining of feeling cold, has had nausea with multiple episodes of vomiting, has been complaining of muscle aches and has difficulties walking. 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 Her father had CHF ALLERGIES: Please see below. HOME MEDICATIONS: Please see below. PHYSICAL EXAMINATION: VITAL SIGNS: Please see below. GEN: well-nourished / well developed INTEGUMENT: not flushed/ not jaundice HEENT: NCAT / mucus membranes moist and pink CVS: RRR/NMRG/ radial pulses intact / no lower extremity edema LUNGS: lungs are clear to auscultation bilaterally on room air ABDOMEN: the abdomen is soft & not tender with palpation MSK/EXTREMITIES: Range of motion is intact in all 4 extremities NEURO: Unable to complete a full neurological exam because the patient is easily distracted and has difficulties following commands. She does have bilateral upper extremity asterixis PSYCH: alert and oriented to person and able to articulate where she has or the date / occasionally her speech is coherent and consistent with the conversation at other times her speech is incongruent with the conversation and does not make sense / her speech is not pressured / she does not have a flat affect LABORATORY DATA: See below. IMAGING: CT of the head is unremarkable MICROBIOLOGY: Please see below. ASSESSMENT: Ms. Jorge is a 68-year-old female with past medical history of bipolar disorder with depression. CKD for dyslipidemia and parathyroidectomy was admitted for evaluation of delerium / encephalopathy of unclear cause. PLAN: 1.Encephalopathy / Delirium Possibly due to hyperammonemia. Her ammonia is elevated and she has asterixis. According to the patient's daughter. There is no known history of liver failure. Her BUN is slightly elevated glucose to baseline. Therefore, I am not convinced this is due to uremic encephalopathy CT of the head, LFTs and TSH are unremarkable. Plan: Admit to PCU/frequent neuro checks//lactulose/follow-up UA & drug screen/follow up coags, because she was born in 1950 will check for Hep C / if her mental status does not improve after she has a bowel movement, the daytime team can consider an MRI of the brain/one-on-one sitter/will consult psychiatry for their opinion 2. Nausea and vomiting I'm not sure if this is due to lithium toxicity, because her lithium has been held and her lithium levels are within therapeutic range Plan: Zofran and IV fluids / f/u w Psych 3. Insomnia. Plan: Rozerem 4.Myalgias Possibly due to hyperkalemia. She had difficulties holding up her arms and legs during the neurological exam Plan: Follow up CPK/Tylenol when necessary / hold simvastatin / fall precautions 5. Mild hyperkalemia. Likely due to renal impairment Plan: Telemetry / pending repeat K may order calcium gluconate IV 1G, D50W 50ml w 10 units of regular insulin 6. Bipolar disorder with depression Plan: Follow-up with psych. Continue to hold home meds 7. CKD 4. Her renal function is at her baseline Plan: Follow-up BMP DVT PROPHYLAXIS: Heparin DISPOSITION: Inpatient psych vs home after more than 2 midnight's stay Vital Signs Vital Signs Date Time Temp Pulse Resp B/P (MAP) Pulse Ox O2 Delivery O2 Flow Rate FiO2 02/27/19 21:15 128/65 (86) 02/27/19 21:11 85 14 97 Room Air 02/27/19 20:12 97.5 Laboratory Data Labs 24H Laboratory Tests 2 02/27/19 20:46: Immature Granulocyte % (Auto) 0.4, Neutrophils (%) (Auto) 92.9H, Lymphocytes (%) (Auto) 1.9L, Monocytes (%) (Auto) 3.1, Eosinophils (%) (Auto) 1.5, Basophils (%) (Auto) 0.2, Neutrophils # (Auto) 10.3H, Lymphocytes # (Auto) 0.2L, Monocytes # (Auto) 0.3, Eosinophils # (Auto) 0.2, Basophils # (Auto) 0.0, Nucleated Red Blood Cells % (auto) 0.0, Anion Gap 10, Glomerular Filtration Rate 24.2L, Calcium Level 8.5L, Total Bilirubin 0.6, Direct Bilirubin 0.1, Aspartate Amino Transf (AST/SGOT) 21, Alanine Aminotransferase (ALT/SGPT) 21, Alkaline Phosphatase 75, Total Protein 7.1, Albumin 3.6, Albumin/Globulin Ratio 1.03, Thyroid Stimulating Hormone (TSH) 2.370, Free Thyroxine Index 3.0, Thyroxine (T4) 9.6, Triiodothyronine (T3) Uptake 31, [place] Level 0.92, Ethyl Alcohol Level < 0.003 02/27/19 21:48: Ammonia 35H CBC/BMP Laboratory Tests 02/27/19 20:46 Home Medications Scheduled Calcitriol (Calcitriol) 0.25 Mcg Capsule, 0.25 MCG PO QHS FAMILY MEMBER STATES THE PRESCRIPTION RAN OUT A WHILE AGO [place] Carbonate ([place] Carbonate) 300 Mg Capsule, 300 MG PO [facility] FAMILY MEMBER STATES PATIENT WAS RECENTLY TOLD BY PHYSICIAN TO DISCONTINUE THIS MEDICATION [place] Carbonate ([place] Carbonate) 300 Mg Capsule, 600 MG PO QHS FAMILY MEMBER STATES PATIENT WAS RECENTLY TOLD BY PHYSICIAN TO DISCONTINUE THIS MEDICATION. Simvastatin (Simvastatin) 20 Mg Tablet, 20 MG PO QHS Scheduled PRN Propylene Glycol/Peg 400 (Systane 0.3-0.4% Eye Drops) 15 Ml Drops, 1 DROP OU QID PRN for DRY EYES USES PRESERVATIVE FREE Allergies Coded Allergies: No Known Allergies (Unverified , 03/12/16) A-FIB/CHADSVASC A-FIB History Current/History of A-Fib/PAF?: No Current PO Anticoag Therapy: No TINY LIM MD Feb 27, 2019 23:03
[2019-02-28] MEDS ORDERED: LACTULOSE 20 GM/30 ML SYRUP UD PO ONE
[2019-02-28] MEDS ORDERED: DEXTROSE 50% 50 ML SYRINGE IV STA (00:16)
[2019-02-28] MEDS ORDERED: HumuLIN R (REGULAR) INSULIN (NovoLIN R) **100U/ML** PER UNIT IV STA (00:16)
[2019-02-28] MEDS ORDERED: CALCIUM GLUCONATE 1,000 MG in D5W MINI-BAG PLUS 100 ML IV ONE (00:30)
[2019-02-28] MEDS ORDERED: ONDANSETRON 4MG/2ML VIAL (J2405) IV PRN (00:30)
[2019-02-28 01:06] LABS: CPK CREATINE PHOSPHOKINASE 75 U/L (26-192)
[2019-02-28] MEDS: NS 1,000 ML IV SCH ×2 (02:06→13:58)
[2019-02-28] MEDS: RAMELTEON 8 MG TAB (ROZEREM) PO SCH ×2 (02:07→20:31)
[2019-02-28 03:26] LABS: APPEARANCE, URINE CLEAR (CLEAR); BACTERIA, URINE AUTO NEGATIVE (NEGATIVE); BILIRUBIN, URINE AUTO NEGATIVE (NEGATIVE); BLOOD, URINE BLOOD NEGATIVE (NEGATIVE); COLOR, URINE AMBER (YELLOW); GLUCOSE, URINE (UA) AUTO 1+ mg/dL (NEGATIVE); KETONE, URINE AUTO NEGATIVE (NEGATIVE); LEUKOCYTE ESTERASE, URINE AUTO NEGATIVE (NEGATIVE); NITRITE, URINE AUTO NEGATIVE (NEGATIVE); PROTEIN, URINE AUTO NEGATIVE (NEGATIVE); RBC, URINE AUTO 2 /HPF (0-3); SPECIFIC GRAVITY URINE AUTO 1.009 (1.002-1.035); SQUAMOUS EPITHELIAL CELL UR AU 1 /HPF (0-6); UROBILINOGEN, URINE AUTO 0.2 mg/dL (0.0-2.0); WBC, URINE AUTO 0 /HPF (0-3)
[2019-02-28] MEDS: HEPARIN SOD (PORCINE) 5000 UNITS/ML VIAL SC SCH ×3 (06:55→22:06)
[2019-02-28 07:23] LABS: HEMATOCRIT 35.5 % (36.0-47.0); HEMOGLOBIN 10.9 g/dl (12.0-15.5); MEAN CORPUSCULAR HGB CONC 30.7 g/dl (32.0-36.5); MEAN CORPUSCULAR VOLUME 91.3 fl (80.0-96.0); PLATELET COUNT, AUTOMATED 272 10^3/uL (150-450); RED BLOOD COUNT 3.89 10^6/uL (4.00-5.40); WHITE BLOOD COUNT 8.6 10^3/uL (4.0-10.0)
[2019-02-28 07:37] LABS: ALBUMIN 3.1 GM/DL (3.2-5.2); BILIRUBIN,TOTAL 0.6 MG/DL (0.2-1.0); CALCIUM LEVEL 8.3 MG/DL (8.8-10.2); CREATININE FOR GFR 2.26 MG/DL (0.55-1.30); POTASSIUM SERUM 4.9 MEQ/L (3.5-5.1)
[2019-02-28] MEDS: DOCUSATE SODIUM 100 MG CAP PO SCH ×2 (09:00→20:30)
[2019-02-28 11:32] VITALS: BP 124/59
[2019-02-28 14:00] VITALS: BP 102/62
--- NOTE | 2019-02-28 15:15 | IPNPDOC ---
Text Note Date of Service The patient was seen on 02/28/19. NOTE Subjective: Patient continues to be confused, no focal weaknesses appreciated. Patient has difficulties to find the right words, "words salad" Objective: GENERAL APPEARANCE: Well-nourished, well-developed, confused female HEENT: Normocephalic, atraumatic. Mucous members moist and pink CARDIOVASCULAR: Regular rate and rhythm. No murmurs, rubs or gallops. Radial pu lses are intact. There is no lower extremity edema LUNGS: Diminished lung sounds ABDOMEN: Abdomen is soft and nontender. MUSCULOSKELETAL: Range of motion is intact in all 4 extremities NEUROLOGICAL: Cranial nerves II-12 are grossly intact. Not oriented, awake, no nuchal rigidity Assessment and plan Patient is a 68-year-old female with past medical history of bipolar disorder with depression. CKD for dyslipidemia and parathyroidectomy was admitted for evaluation of delerium / encephalopathy of unclear cause. 1.metabolic encephalopathy Unknown etiology for now. CT head negative. Patient does not have nuchal rigidity, she had mild fever, no leukocytosis Respiratory panel ordered Most likely lithium toxicity superimposed with poor kidney function IV fluid Continue to monitor Telemetry EKG We will proceed with MRI of the brain. If patient's altered mental status not resolve tomorrow we will proceed with spinal tap 2. Nausea and vomiting Resolved Chronic kidney diseases stage IV Continue to monitor VS,Fishbone, I+O VS, Fishbone, I+O Laboratory Tests 02/27/19 20:46 02/28/19 02:01 02/28/19 06:58 Vital Signs Date Time Temp Pulse Resp B/P (MAP) Pulse Ox O2 Delivery O2 Flow Rate FiO2 02/28/19 14:00 96.8 86 17 102/62 (75) 98 Room Air I&O- Last 24 Hours up to 6 AM 02/28/19 06:00 Output Total 250 ml Balance -250 ml JACI SLOAN DO Feb 28, 2019 15:15
[2019-02-28] MEDS: ACETAMINOPHEN TAB 650MG DOSE (2X325MG) PO PRN ×2 (15:55→22:17)
[2019-02-28] MEDS ORDERED: ACETAMINOPHEN 650 MG SUPP PR PRN (16:30)
[2019-02-28 19:00] LABS: CREATININE FOR GFR 2.36 MG/DL (0.55-1.30); GLOMERULAR FILTRATION RATE 21.9 (>45); POTASSIUM SERUM 4.5 MEQ/L (3.5-5.1)
[2019-02-28 22:00] VITALS: BP 104/54
[2019-03-01 00:27] LABS: CALCIUM LEVEL 7.5 MG/DL (8.8-10.2); CREATININE FOR GFR 2.38 MG/DL (0.55-1.30); GLOMERULAR FILTRATION RATE 21.6 (>45); POTASSIUM SERUM 4.3 MEQ/L (3.5-5.1)
[2019-03-01] MEDS ORDERED: POLYVINYL ALCOHOL OPHTH SOLN 15 ML(LIQUITEARS) OU PRN (00:45)
[2019-03-01] MEDS: ACETAMINOPHEN TAB 650MG DOSE (2X325MG) PO PRN (03:00)
[2019-03-01] MEDS: NS 1,000 ML IV SCH ×3 (05:06→19:24)
[2019-03-01] MEDS: HEPARIN SOD (PORCINE) 5000 UNITS/ML VIAL SC SCH ×3 (05:56→21:09)
[2019-03-01 06:00] VITALS: BP 105/58
[2019-03-01 07:42] LABS: BASO % 0.4 % (0.0-1.0); EOS # 0.1 10^3/uL (0.0-0.5); EOS % 2.8 % (0.0-3.0); HEMATOCRIT 34.6 % (36.0-47.0); HEMOGLOBIN 10.4 g/dl (12.0-15.5); LYMPH # 1.4 10^3/uL (1.5-5.0); LYMPH % 27.7 % (24.0-44.0); MEAN CORPUSCULAR HGB CONC 30.1 g/dl (32.0-36.5); MONO # 0.6 10^3/uL (0.0-0.8); MONO % 11.4 % (0.0-5.0); NEUTROPHILS # 2.9 10^3/uL (1.5-8.5); NEUTROPHILS % 57.3 % (36.0-66.0); PLATELET COUNT, AUTOMATED 255 10^3/uL (150-450); RED BLOOD COUNT 3.72 10^6/uL (4.00-5.40)
[2019-03-01 08:26] LABS: CALCIUM LEVEL 7.7 MG/DL (8.8-10.2); CREATININE FOR GFR 2.28 MG/DL (0.55-1.30); GLOMERULAR FILTRATION RATE 22.7 (>45); MAGNESIUM LEVEL 2.2 MG/DL (1.8-2.4); POTASSIUM SERUM 4.6 MEQ/L (3.5-5.1)
[2019-03-01] MEDS: DOCUSATE SODIUM 100 MG CAP PO SCH ×4 (09:04→21:39)
--- NOTE | 2019-03-01 12:21 | REP ---
MRI BRAIN WITHOUT CONTRAST: HISTORY: CVA. Comparison CT study of the brain 02/27/2019. Comparison brain MRI study 02/25/2019. TECHNIQUE: Axial and sagittal imaging planes are utilized for T1 and T2-weighted scans. Sequences include spin-echo, fast spin echo, FLAIR, and diffusion weighted sequences. MRI FINDINGS: No bony calvarial lesion is seen. Craniocervical junction remains unremarkable. Diffusion-weighted scans show no evidence of restricted diffusion to suggest acute ischemia. There is no evidence of infarct, hemorrhage, mass, extra-axial fluid collection, or midline shift. There are one or two foci of subcortical white matter hyperintensity on FLAIR images, consistent with minimal small vessel changes. These are felt to be unchanged. IMPRESSION: No acute intracranial abnormality. No significant change from 02/25/2019 prior study. Electronically Signed by Mainor Cuevas MD 03/01/2019 12:27 P
[2019-03-01 12:28] LABS: CALCIUM LEVEL 7.8 MG/DL (8.8-10.2); CREATININE FOR GFR 2.14 MG/DL (0.55-1.30); GLOMERULAR FILTRATION RATE 24.5 (>45); POTASSIUM SERUM 4.5 MEQ/L (3.5-5.1)
--- NOTE | 2019-03-01 13:26 | IPNPDOC ---
Text Note Date of Service The patient was seen on 03/01/19. NOTE Subjective: Patient alert, oriented, awake in the morning. Her mental status s ignificantly improved and stable. Patient did not have recollection what happened with her mental status and why she was confused. Overnight patient developed low-grade fever subsided after Tylenol Objective: GENERAL APPEARANCE: Well-nourished, well-developed, NAD HEENT: Normocephalic, atraumatic. Mucous members moist and pink CARDIOVASCULAR: Regular rate and rhythm. No murmurs, rubs or gallops. Radial pulses are intact. There is no lower extremity edema LUNGS: Diminished lung sounds ABDOMEN: Abdomen is soft and nontender. MUSCULOSKELETAL: Range of motion is intact in all 4 extremities NEUROLOGICAL: Cranial nerves II-12 are grossly intact. Not oriented, awake, no nuchal rigidity Assessment and plan Patient is a 68-year-old female with past medical history of bipolar disorder with depression, CKD, dyslipidemia and parathyroidectomy was admitted for evaluation of delirium/encephalopathy of unclear cause. 1.Metabolic encephalopathy Resolved. Most likely lithium toxicity superimposed with poor kidney function CT head negative. MRI of the brain negative Respiratory panel negative IV fluid Continue to monitor I talked by phone to Dr. Joe , psychiatrist research environmental engineer today she recommended to decrease the dose of lithium to 300 mg twice a day. I will ask tomorrow Dr. Palacio who is the patient's psychiatrist to see the patient 2. Nausea and vomiting Resolved Chronic kidney diseases stage IV Improved Continue to monitor VS,Fishbone, I+O VS, Fishbone, I+O Laboratory Tests 02/28/19 18:26 02/28/19 23:57 03/01/19 07:31 03/01/19 11:47 Vital Signs Date Time Temp Pulse Resp B/P (MAP) Pulse Ox O2 Delivery O2 Flow Rate FiO2 03/01/19 06:00 98.9 63 20 105/58 (74) 93 Room Air I&O- Last 24 Hours up to 6 AM 03/01/19 06:00 Intake Total 4220 ml Output Total 700 ml Balance 3520 ml JACI SLOAN DO Mar 01, 2019 13:26
[2019-03-01 18:38] LABS: CALCIUM LEVEL 8.1 MG/DL (8.8-10.2); CREATININE FOR GFR 2.09 MG/DL (0.55-1.30); GLOMERULAR FILTRATION RATE 25.1 (>45); POTASSIUM SERUM 4.3 MEQ/L (3.5-5.1)
[2019-03-01] MEDS: LITHIUM CARBONATE 300 MG CAP PO SCH ×2 (21:00→21:10)
[2019-03-01] MEDS: RAMELTEON 8 MG TAB (ROZEREM) PO SCH (21:09)
[2019-03-01 22:00] VITALS: BP 116/67
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
[2019-03-02 00:11] LABS: GLOMERULAR FILTRATION RATE 26.5 (>45); POTASSIUM SERUM 4.5 MEQ/L (3.5-5.1)
[2019-03-02] MEDS: HEPARIN SOD (PORCINE) 5000 UNITS/ML VIAL SC SCH ×2 (05:45→13:45)
[2019-03-02 06:00] VITALS: BP 128/59
[2019-03-02 06:01] LABS: BASO % 0.5 % (0.0-1.0); EOS # 0.2 10^3/uL (0.0-0.5); EOS % 5.7 % (0.0-3.0); HEMOGLOBIN 9.7 g/dl (12.0-15.5); LYMPH # 1.3 10^3/uL (1.5-5.0); LYMPH % 35.2 % (24.0-44.0); MEAN CORPUSCULAR HEMOGLOBIN 28.5 pg (27.0-33.0); MEAN CORPUSCULAR HGB CONC 31.3 g/dl (32.0-36.5); MEAN CORPUSCULAR VOLUME 91.2 fl (80.0-96.0); MONO # 0.5 10^3/uL (0.0-0.8); MONO % 13.7 % (0.0-5.0); NEUTROPHILS # 1.6 10^3/uL (1.5-8.5); NEUTROPHILS % 44.6 % (36.0-66.0); PLATELET COUNT, AUTOMATED 220 10^3/uL (150-450); WHITE BLOOD COUNT 3.7 10^3/uL (4.0-10.0)
[2019-03-02 07:52] LABS: CALCIUM LEVEL 8.2 MG/DL (8.8-10.2); CREATININE FOR GFR 1.99 MG/DL (0.55-1.30); GLOMERULAR FILTRATION RATE 26.6 (>45); MAGNESIUM LEVEL 2.1 MG/DL (1.8-2.4); POTASSIUM SERUM 4.4 MEQ/L (3.5-5.1)
[2019-03-02] MEDS: DOCUSATE SODIUM 100 MG CAP PO SCH (09:00)
[2019-03-02] MEDS: NS 1,000 ML IV SCH (09:23)
[2019-03-02] MEDS ORDERED: RAME8TAB2 PO (11:03)
[2019-03-02 13:10] LABS: CALCIUM LEVEL 8.2 MG/DL (8.8-10.2); GLOMERULAR FILTRATION RATE 26.5 (>45); POTASSIUM SERUM 4.6 MEQ/L (3.5-5.1)
[2019-03-02 13:11] LABS: LITHIUM LEVEL 0.45 MEQ/L (0.60-1.20)
--- NOTE | 2019-03-02 17:58 | DS.PDOC ---
Discharge Summary General Date of Admission Feb 27, 2019 at 22:57 Date of Discharge 03/02/19 Discharge Summary PROCEDURES PERFORMED DURING STAY: [None]. ADMITTING DIAGNOSES: Metabolic encephalopathy Nausea and vomiting Chronic kidney diseases stage IV DISCHARGE DIAGNOSES: Metabolic encephalopathy Nausea and vomiting Chronic kidney diseases stage IV COMPLICATIONS/CHIEF COMPLAINT: Ams,Hyperammonemia,Hyperkalemia. HISTORY OF PRESENT ILLNESS: This is a 68-year-old female that was discharged Pranay afternoon after being admitted for lithium toxicity; after being discharged, was told not to resume her lithium until she followed up with her PCP for lithium level. Today her lithium levels within therapeutic range. According to the patient's daughter, she developed episodes of confusion earlier on today. After watching an episode of law and order, the patient had difficulties differentiating reality from what she saw on TV and reports seeing things. When asked what she is seeing, she is unable to articulate exactly what she is seeing. She has episodes where she is lucid and able to talk fluently alternating with episodes where she has word finding difficulties and speech that is incongruent with the conversation. Additionally, she has not been sleeping well, been complaining of feeling cold, has had nausea with multiple episodes of vomiting, has been complaining of muscle aches and has difficulties walking. HOSPITAL COURSE: During hospital stay the following issue addressed 1.Metabolic encephalopathy Most likely lithium toxicity superimposed with poor kidney function CT head negative. MRI of the brain negative Respiratory panel negative Patient received IV fluid Continue to monitor Dr. Palacio who is the patient's psychiatrist recommended stop lithium and change to different class of medications 2. Nausea and vomiting Resolved Chronic kidney diseases stage IV Improved Continue to monitor DISCHARGE MEDICATIONS: Please see below. ALLERGIES: Please see below. PHYSICAL EXAMINATION ON DISCHARGE: VITAL SIGNS: Please see below. GENERAL APPEARANCE: Well-nourished, well-developed, NAD HEENT: Normocephalic, atraumatic. Mucous members moist and pink CARDIOVASCULAR: Regular rate and rhythm. No murmurs, rubs or gallops. Radial pulses are intact. There is no lower extremity edema LUNGS: Diminished lung sounds ABDOMEN: Abdomen is soft and nontender. MUSCULOSKELETAL: Range of motion is intact in all 4 extremities NEUROLOGICAL: Cranial nerves II-12 are grossly intact. Not oriented, awake, no nuchal rigidity LABORATORY DATA: Please see below. IMAGING: See above PROGNOSIS: Favorable ACTIVITY: As tolerated DIET: Cardiac DISCHARGE PLAN: Follow-up with psychiatrist in the outpatient settings DISPOSITION: 01 Home, Self-Care. DISCHARGE INSTRUCTIONS: Stop taking lithium DISCHARGE CONDITION: Stable TIME SPENT ON DISCHARGE: Greater than 20 minutes. Vital Signs/I&Os Vital Signs Date Time Temp Pulse Resp B/P (MAP) Pulse Ox O2 Delivery O2 Flow Rate FiO2 03/02/19 06:00 97.1 58 16 128/59 (82) 99 Room Air I&O- Last 24 Hours up to 6 AM 03/02/19 06:00 Intake Total 3060 ml Output Total 3950 ml Balance -890 ml Laboratory Data Labs 24H Laboratory Tests 2 03/01/19 18:00: Anion Gap 7L, Glomerular Filtration Rate 25.1L, Calcium Level 8.1L 03/01/19 23:32: Anion Gap 9, Glomerular Filtration Rate 26.5L, Calcium Level 8.0L 03/02/19 05:46: Anion Gap 8, Glomerular Filtration Rate 26.6L, Calcium Level 8.2L, Immature Granulocyte % (Auto) 0.3, Neutrophils (%) (Auto) 44.6, Lymphocytes (%) (Auto) 35.2, Monocytes (%) (Auto) 13.7H, Eosinophils (%) (Auto) 5.7H, Basophils (%) (Auto) 0.5, Neutrophils # (Auto) 1.6, Lymphocytes # (Auto) 1.3L, Monocytes # (Auto) 0.5, Eosinophils # (Auto) 0.2, Basophils # (Auto) 0.0, Nucleated Red Blood Cells % (auto) 0.0, Magnesium Level 2.1, [place] Level 0.45L 03/02/19 11:48: Anion Gap 7L, Glomerular Filtration Rate 26.5L, Calcium Level 8.2L CBC/BMP Laboratory Tests 03/01/19 18:00 03/01/19 23:32 03/02/19 05:46 03/02/19 11:48 Microbiology Microbiology 03/01/19 Blood Culture - Preliminary, Resulted No growth after 24 hours . All specim... 02/28/19 Blood Culture - Preliminary, Resulted No growth after 24 hours . All specim... 02/28/19 Blood Culture - Preliminary, Resulted No growth after 24 hours . All specim... 02/28/19 Respiratory Virus Panel (PCR) ([facility]) - Final, Complete Discharge Medications Scheduled Calcitriol (Calcitriol) 0.25 Mcg Capsule, 0.25 MCG PO QHS, (Reported) FAMILY MEMBER STATES THE PRESCRIPTION RAN OUT A WHILE AGO Ramelteon (Ramelteon) 8 Mg Tablet, 8 MG PO QHS Simvastatin (Simvastatin) 20 Mg Tablet, 20 MG PO QHS, (Reported) Scheduled PRN Propylene Glycol/Peg 400 (Systane 0.3-0.4% Eye Drops) 15 Ml Drops, 1 DROP OU QID PRN for DRY EYES, (Reported) USES PRESERVATIVE FREE Allergies Coded Allergies: No Known Allergies (Unverified , 03/12/16) JACI SLOAN DO Mar 02, 2019 17:58
== END 2019-03-02 17:08 | disposition home health service (06) | DRG 71 ==
LOC: M ED 20:11 → M ED INP 22:57 → ENRESERV 02-28 10:06 → M MSPAV 02-28 11:31
PROVIDERS: ADMIT Internal Medicine; ATTEND Internal Medicine
DX: G93.41 Metabolic encephalopathy (principal); N18.4 Chronic kidney disease, stage 4 (severe); F31.9 Bipolar disorder, unspecified; Z79.899 Other long term (current) drug therapy; E87.5 Hyperkalemia; G47.00 Insomnia, unspecified; M79.10 Myalgia, unspecified site

== ENCOUNTER → 2019-03-23 | Outpatient (REF) | payer MEDICARE ==
[~2019-03-23] MED LIST changes: +RAME8TAB2 PO
== END ==
LOC: M LABDRAW1 12:16
PROVIDERS: ATTEND Psychiatry & Neurology Psychiatry
DX: Z51.81 Encounter for therapeutic drug level monitoring (principal)

== ENCOUNTER → 2019-07-30 | Outpatient (CLI) | payer MEDICARE | LOC: M LABSMTC 12:36 | PROVIDERS: ATTEND Family Medicine | DX: Z03.818 Encounter for observation for suspected exposure to other biological agents ruled out (principal); Z11.59 Encounter for screening for other viral diseases | CPT/HCPCS: 87486; 87581; 87633; 87798; C9803 ==

== ENCOUNTER → 2019-08-23 | Outpatient (CLI) | payer MEDICARE ==
[~2019-08-23] MED LIST changes: +AMLO25TA PO; +ATIV1TAB10 PO; +DEPA250T32 PO; +LITH150C PO; +SOLI10TA PO; +SOLI5TAB PO
== END ==
LOC: M PLALAB 12:54
PROVIDERS: ATTEND Psychiatry & Neurology Psychiatry
DX: F32.5 Major depressive disorder, single episode, in full remission (principal)

== ENCOUNTER 2019-08-24 03:59 | Inpatient (IN) | payer MEDICARE ==
[~2019-08-24] VITALS: Ht 165.1 cm; Wt 70.9 kg
[~2019-08-24 03:59] MED LIST changes: -AMLO25TA PO; -ATIV1TAB10 PO; -DEPA250T32 PO; -LITH150C PO; -SOLI10TA PO; -SOLI5TAB PO
[2019-08-24 05:02] LABS: HEMATOCRIT 39.6 % (36.0-47.0); HEMOGLOBIN 12.5 g/dl (12.0-15.5); MEAN CORPUSCULAR HEMOGLOBIN 26.2 pg (27.0-33.0); MEAN CORPUSCULAR HGB CONC 31.6 g/dl (32.0-36.5); MEAN CORPUSCULAR VOLUME 82.8 fl (80.0-96.0); PLATELET COUNT, AUTOMATED 322 10^3/uL (150-450); RED BLOOD COUNT 4.78 10^6/uL (4.00-5.40); WHITE BLOOD COUNT 8.8 10^3/uL (4.0-10.0)
[2019-08-24 05:28] LABS: AMPHETAMINES LEVEL URINE NEGATIVE (NEGATIVE); BARBITURATES URINE NEGATIVE (NEGATIVE); BENZODIAZEPINES URINE NEGATIVE (NEGATIVE); CANNABINOIDS URINE NEGATIVE (NEGATIVE); COCAINE METABOLITE URINE NEGATIVE (NEGATIVE); METHADONE URINE NEGATIVE (NEGATIVE); OPIATES URINE NEGATIVE (NEGATIVE); PHENCYCLIDINE URINE NEGATIVE (NEGATIVE)
[2019-08-24 05:38] LABS: ACETAMINOPHEN LEVEL < 2.0 UG/ML (10.0-30.0); ALBUMIN 4.2 GM/DL (3.2-5.2); ALT/SGPT 17 U/L (12-78); BILIRUBIN,DIRECT < 0.1 MG/DL (0.0-0.2); BILIRUBIN,TOTAL 0.5 MG/DL (0.2-1.0); BLOOD UREA NITROGEN 33 MG/DL (7-18); CALCIUM LEVEL 10.1 MG/DL (8.8-10.2); CARBON DIOXIDE LEVEL 27 MEQ/L (21-32); CHLORIDE LEVEL 106 MEQ/L (98-107); ETHYL ALCOHOL (ETHANOL) 0.003 % (0.000-0.010); GLOMERULAR FILTRATION RATE 22.4 (>45); GLUCOSE, FASTING 118 MG/DL (70-100); LITHIUM LEVEL < 0.20 MEQ/L (0.60-1.20); POTASSIUM SERUM 4.1 MEQ/L (3.5-5.1); SALICYLATE LEVEL < 1.7 MG/DL (5.0-30.0); SODIUM LEVEL 142 MEQ/L (136-145); TOTAL PROTEIN 7.6 GM/DL (6.4-8.2)
[2019-08-24] MEDS ORDERED: LITH150C PO (07:23)
[2019-08-24] MEDS ORDERED: SOLI10TA PO (07:23)
[2019-08-24] MEDS ORDERED: ATIV1TAB10 PO (07:23)
[2019-08-24] MEDS ORDERED: OLANZapine ORAL DISINTEGRATING TAB 5MG PO PRN (11:15)
[2019-08-24] MEDS ORDERED: traZODone 50 MG TAB PO PRN (11:15)
[2019-08-24] MEDS ORDERED: MOM 30ML SUSPENSION UDC PO PRN (11:15)
[2019-08-24] MEDS ORDERED: MAALOX 30 ML SUSP *UDC PO PRN (11:15)
[2019-08-24] MEDS ORDERED: ACETAMINOPHEN TAB 650MG DOSE (2X325MG) PO PRN (11:15)
[2019-08-24] MEDS: LITHIUM CARBONATE 150 MG CAP PO SCH ×2 (12:20→20:54)
[2019-08-24 17:12] VITALS: BP 160/80
[2019-08-25 06:45] VITALS: BP 150/80
[2019-08-25] MEDS ORDERED: POLYVINYL ALCOHOL OPHTH SOLN 15 ML(LIQUITEARS) OU PRN (15:45)
[2019-08-25] MEDS ORDERED: SYSTANE OU PRN (16:15)
[2019-08-25] MEDS ORDERED: OPTH OU PRN (16:15)
--- NOTE | 2019-08-25 16:16 | HPEPDOC ---
[facility] Medical History & Physical Date of Admission Aug 24, 2019 Date of Service: Aug 25, 2019 Attending Physician: MICHAEL SHANKAR DO History and Physical CHIEF COMPLAINT: Confusion, perhaps hallucinations HISTORY OF PRESENT ILLNESS: Upon speaking with the patient, she is not entirely sure as to where she is, or why she is here. The report from the emergency department is that she was having hallucinations, she believed that the house was on fire, and she requested her daughter to bring her to the ED "so she could feel safe". 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 She denies tobacco use, only occasional alcohol use. FAMILY HISTORY: Mother had breast cancer and early onset dementia. Her father had heart disease REVIEW OF SYSTEMS: It is difficult to keep the patient on subject, therefore a review of systems was difficult to obtain, nevertheless: Constitutional: Patient denies fevers, chills, night sweats, recent weight gain/loss. Cardiovascular: Patient denies chest discomfort/pain, palpitations, exertional dyspnea. Respiratory: Patient denies dyspnea, wheezing, cough. Gastrointestinal: Patient denies nausea, vomiting, diarrhea, constipation, abdominal pain. Otherwise, remainder of her review of systems is essentially negative, she is not complaining of anything at this time. PHYSICAL EXAMINATION: General: Awake, alert. She does not seem to be oriented at this time. HEENT: Head normocephalic atraumatic, conjunctiva are pink, sclera are nonicteric, buccal mucosa is pink and moist with no lesions in the oropharynx. Hearing is grossly intact to conversation. Respiratory: Clear to auscultation bilaterally with no wheezes, rales, or rhonchi. Cardiovascular: Regular rate and rhythm, with no rubs, gallops, or murmur. Abdomen: Soft, nontender, nondistended, no hepatosplenomegaly appreciated. Bowel sounds present. Extremities: 2+ pulses in the radial bilaterally. No evidence of clubbing or cyanosis. ASSESSMENT/PLAN: Chronic kidney disease -She is at her baseline currently, no additional workup required. I would advis e to give all medications appropriately renally dosed as her GFR is consistently approximately 20-25 Bipolar disorder with depression -Recommendations per the psychiatric team Dyslipidemia -Continue home dose of simvastatin Hypoparathyroidism -Continue home dose of calcitriol Dry eyes -Her home eyedrops are preservative-free, the ones we have on formulary have preservatives. Just to be on the safe side, we will allow her to use her own home medication, rather than trying to substitute with what we have on formulary. She may use her eyedrops on an as-needed basis. Overactive bladder -Continue home dose of Vesicare Difficulty sleeping -Will allow psychiatry to manage this. She is on trazodone 50 mg by mouth daily at bedtime PRN insomnia at home. Vital Signs Vital Signs Date Time Temp Pulse Resp B/P (MAP) Pulse Ox O2 Delivery O2 Flow Rate FiO2 08/25/19 06:45 97.7 68 12 150/80 (103) Room Air 08/24/19 09:07 99 Laboratory Data Microbiology Microbiology 08/24/19 Urine Culture - Final, Complete Home Medications Scheduled Calcitriol (Calcitriol) 0.25 Mcg Capsule, 0.25 MCG PO QHS Sebastian Carbonate (Sebastian Carbonate) 150 Mg Capsule, 150 MG PO QHS Simvastatin (Simvastatin) 20 Mg Tablet, 20 MG PO QHS Solifenacin Succinate (Solifenacin Succinate) 10 Mg Tablet, 10 MG PO QHS Scheduled PRN Lorazepam (Ativan) 0.5 Mg Tablet, 0.5 MG PO BID PRN for ANXIETY Propylene Glycol/Peg 400 (Systane 0.3-0.4% Eye Drops) 15 Ml Drops, 1 DROP OU QID PRN for DRY EYES USES PRESERVATIVE FREE Allergies Coded Allergies: No Known Allergies (Unverified , 03/12/16) A-FIB/CHADSVASC A-FIB History Current/History of A-Fib/PAF?: No Current PO Anticoag Therapy: No MICHAEL SHANKAR DO Aug 25, 2019 16:16
[2019-08-25 16:51] VITALS: BP 156/77
--- NOTE | 2019-08-25 20:11 | MHHPEPDOC ---
General Legal Status: 9.39 Chief Complaint ". History of Present Illness HISTORY OF THE PRESENT ILLNESS: Patient is a 69 -year-old , female, who Lucas Galnido was seen for an initial psychiatric evaluation today having been admitted to our adult inpatient psychiatric unit within the past 24 hours on a involuntary basis I also had the opportunity to speak to Dr. helton today who has been her outpatient psychiatrist at [facility] Both Dr. helton and I agreed on the diagnostic impression and initial treatment plan Apparently the patient has a very long history of bipolar illness starting in her early adult life and has been maintained on lithium throughout the majority of her life Over the past years because of increasing potential deleterious effects of the lithium on her kidneys it was necessary to gradually decrease the dose of the lithium so that when she was admitted to the hospital presently she was only on 150 mg per day--I would add that the patient was very resistant according to the doctor to decrease the lithium What appears to have happened over the last couple of days is that the patient has deteriorated whereby she has become grandiose confused disorganized unable to sleep and very erratic in her behavior--she also was exhibiting cognitive deficits primarily in terms of disorganized thinking and memory difficulties At this point she is presenting in an acute manic episode with grandiosity pressured speech perseveration and emotionality--she is very emotionally labile We decided that we would start a course of mood stabilizing medication specifically Depakote 250 milligrams 3 times a day We would also start Zyprexa 5 mg at bedtime for sleep and to address racing thoughts Significant in her past is the fact that she went to college at [employer] and 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 [employer]--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 up to the recent past There is a strong family history of bipolar illness The patient has never been but did adopt a child with whom she now cohabitates as an adult Patient has no history of any suicidality and no history of any recent inpatient psychiatric hospitalizations The patient has been diagnosed as having stage IV kidney disease Prominent in her mental status is affected she has racing thoughts grandiosity difficulty concentrating unable to organize her thinking and difficulty with short-term memory MENTAL STATUS EXAM Level of consciousness--patient was alert and oriented to time place person Appearance-normal posture, normal dress, no prominent physical abnormalities, alert, cooperative Behavior--like to good, no psychomotor agitation or retardation, no abnormal movements, no tremor Speech--normal rate and rhythm--normal volume Mood--expansive Affect--emotional lability present Thought processes-pressured speech along with flight of ideas and, loose associations, nt--no ideas of reference no auditory or visual hallucinations,delusional thinking, no thoughts of derealization or depersonalization, no obsessive thinking, no expressed phobias, Cognition--patient was alert and able to focus-sustained appropriate mental attention-memory immediate and short-term memory intact-abstract thinking present, Insight---fair Judgment or the ability to anticipate consequences of behavior intact Patient denied any suicidal ideation or impulses Patient denied any homicidal impulses or ideation Diagnosis Bipolar disorder with acute mir and cognitive deficits Past Psychiatric History Previous Psychiatric Diagnosis: . Previous Psychiatric Admissions: . Suicide Attempts: . Psychiatric Follow-up: . Psychiatric medications: . Past Medical History Head Injury: No Seizures: No Hospitalizations: No Surgeries: No Family Medical/Psychiatric HX Psychiatric Disorders: Yes (bipolar and dementia) Addiction: No Suicide Attemps/Completions: No Addiction History denies Social History Childhood: . Abuse/Trauma:. Current Living Situation: . Education: . Employment: . Social Support: . Legal: . Marital: . A-FIB/CHADSVASC A-FIB History Current/History of A-Fib/PAF?: No Current PO Anticoag Therapy: No Initial Treatment Plan 1. Patient was admitted on a [9.39] status. 2. Complete history was obtained. 3. With patients permission, family will be contacted and database will be expanded. 4. Patients medication regimen will be reviewed and changed accordingly. 5. Patient will be provided with protected environment. 6. Patient will be treated with individual, group, and milieu therapies. 7. Patient will receive supportive psych-education. 8. Discharge planning will commence immediately. 9. Outpatient follow-up treatment will be strongly recommended. 10. The initial treatment plan will focus initially on: * Depression. * Risk for suicide. ESTIMATED LENGTH OF STAY: - DAYS. TIME SPENT COUNSELING AND COORDINATING INITIAL CARE: minutes. Vital Signs Vital Signs Date Time Temp Pulse Resp B/P (MAP) Pulse Ox O2 Delivery O2 Flow Rate FiO2 08/25/19 16:51 99.1 76 18 156/77 (103) 08/25/19 06:45 Room Air 08/24/19 09:07 99 Medications Scheduled Calcitriol (Calcitriol) 0.25 Mcg Capsule, 0.25 MCG PO QHS, (Reported) [place] Carbonate ([place] Carbonate) 150 Mg Capsule, 150 MG PO QHS, (Reported) Simvastatin (Simvastatin) 20 Mg Tablet, 20 MG PO QHS, (Reported) Solifenacin Succinate (Solifenacin Succinate) 10 Mg Tablet, 10 MG PO QHS, (Reported) Scheduled PRN Lorazepam (Ativan) 0.5 Mg Tablet, 0.5 MG PO BID PRN for ANXIETY, (Reported) Propylene Glycol/Peg 400 (Systane 0.3-0.4% Eye Drops) 15 Ml Drops, 1 DROP OU QID PRN for DRY EYES, (Reported) USES PRESERVATIVE FREE Allergies Coded Allergies: No Known Allergies (Unverified , 03/12/16) Salo Paulino MD Aug 25, 2019 20:11
[2019-08-25] MEDS ORDERED: LITHIUM CARBONATE 150 MG CAP PO SCH (21:00)
[2019-08-25] MEDS: SIMVASTATIN 20 MG TAB PO SCH (21:00)
[2019-08-25] MEDS ORDERED: OLANZapine 5 MG TAB PO SCH (21:00)
[2019-08-25] MEDS: CALCITRIOL 0.25 MCG CAP (S0169) PO SCH (21:00)
[2019-08-25] MEDS: DIVALPROEX 250 MG TAB PO SCH (21:00)
[2019-08-25] MEDS: SOLIFENACIN 5 MG TAB PO SCH (21:00)
[2019-08-26 06:32] VITALS: BP 145/80
[2019-08-26] MEDS: DIVALPROEX 250 MG TAB PO SCH ×3 (09:00→21:00)
[2019-08-26] MEDS ORDERED: OLANZapine ORAL DISINTEGRATING TAB 5MG PO PRN (14:00)
--- NOTE | 2019-08-26 19:35 | MHIPNPDOC ---
[facility] Progress Note Progress Note DATE OF SERVICE: 08/26/19 Josie was seen for medical psychotherapy today Patient was seen for a medical psychotherapy session in which the patient's mekhi tment plan was reviewed, mental status exam performed, vital signs reviewed, current medical conditions reviewed, and treatment goals were reviewed This visit was performed as a telehealth visit utilizing an interactive a/v telecommunications system or telephone that permitted real time communication between myself and the patient--permission/consent from patient/guardian was obt ained 20 minutes was spent with the patient Josie continues to show absolutely no insight into her normal mental state which is primarily that of a manic state with pressured speech perseveration high emotionality and delusional thinking She slept very little if any last night Her mental status She was alert She is disoriented as to situation and reality She is not having any hallucinations but she is delusional She has racing thoughts Pressured speech Emotional lability Denies suicidality Denies homicidality or her thoughts are circumstantial and tangential She perseverates on issues At this point we continue to hope that she will cooperate with the medication which she so desperately needs I will see her again tomorrow She was placed on one-to-one close nursing supervision because of her disorganized behavior on the unit Vital Signs Vital Signs Date Time Temp Pulse Resp B/P (MAP) Pulse Ox O2 Delivery O2 Flow Rate FiO2 08/26/19 06:32 98.1 90 14 145/80 (101) Room Air 08/24/19 09:07 99 Current Medications Current Medications Medications (Trade) Dose Ordered Sig/Harry Route PRN Reason Start Time Stop Time Status Last Admin Dose Admin Acetaminophen (Tylenol Tab) 650 mg Q6HP PRN PO HEADACHE or DISCOMFORT 08/24/19 11:15 Al Hydrox/Mg Hydrox/Simethicone (Mylanta) 30 ml Q4HP PRN PO HEARTBURN/INDIGESTION 08/24/19 11:15 Artificial Tears (Akwa Tears) 1 drop QID PRN OU DRY EYES 08/25/19 15:45 08/25/19 16:00 DC Calcitriol (Rocaltrol) 0.25 mcg QHS PO 08/25/19 21:00 Divalproex Sodium (Depakote) 250 mg TID PO 08/25/19 21:00 Home Med (Med Rec Complete!) ASDIRECTED XX 08/24/19 09:00 08/24/19 08:53 DC [place] Carbonate ([place] Carbonate) 150 mg BID PO 08/24/19 09:00 08/24/19 22:29 DC 08/24/19 20:54 [place] Carbonate ([place] Carbonate) 150 mg QHS PO 08/25/19 21:00 08/25/19 20:00 DC Magnesium Hydroxide (Milk Of Magnesia) 30 ml DAILYPRN PRN PO CONSTIPATION 08/24/19 11:15 Miscellaneous (Unresolved Clarification Entry) SEE LABEL COMMENTS DAILY XX 08/26/19 09:00 08/26/19 18:06 DC Olanzapine (ZyPREXA ZYDIS) 5 mg Q4HP PRN PO ANXIETY/AGITATION 08/24/19 11:15 08/26/19 13:48 DC Olanzapine (ZyPREXA ZYDIS) 10 mg Q4HP PRN PO ANXIETY/AGITATION 08/26/19 14:00 Olanzapine (ZyPREXA) 5 mg QHS PO 08/25/19 21:00 08/26/19 13:49 DC Olanzapine (ZyPREXA) 10 mg QHS PO 08/26/19 21:00 Patient Own Medication (Patient'S Own Med) SYSTANE 0.3-0.4% PRESERVAT... QID PRN OU DRY EYE 08/25/19 16:15 08/26/19 12:03 DC Simvastatin (Zocor) 20 mg QHS PO 08/25/19 21:00 Solifenacin (Vesicare) 10 mg QHS PO 08/25/19 21:00 Trazodone HCl (Desyrel) 50 mg QHSP PRN PO INSOMNIA 08/24/19 11:15 Allergies Coded Allergies: No Known Allergies (Unverified , 03/12/16) Salo Paulino MD Aug 26, 2019 19:35
[2019-08-26] MEDS: SIMVASTATIN 20 MG TAB PO SCH (21:00)
[2019-08-26] MEDS: OLANZapine 10 MG TAB PO SCH (21:00)
[2019-08-26] MEDS: CALCITRIOL 0.25 MCG CAP (S0169) PO SCH (21:00)
[2019-08-26] MEDS: SOLIFENACIN 5 MG TAB PO SCH (21:00)
[2019-08-27 06:49] VITALS: BP 150/80
[2019-08-27] MEDS: DIVALPROEX 250 MG TAB PO SCH ×4 (08:42→20:43)
--- NOTE | 2019-08-27 17:55 | MHIPNPDOC ---
[facility] Progress Note Progress Note DATE OF SERVICE: 08/27/19 Josie or Yeimy as she prefers to be called is having a very difficult time communicating and coordinating her thoughts--I did meet with her today for medical psychotherapy Patient was seen for a medical psychotherapy session in which the patient's treatment plan was reviewed, mental status exam performed, vital signs reviewed, current medical conditions reviewed, and treatment goals were reviewed This visit was performed as a telehealth visit utilizing an interactive a/v telecommunications system or telephone that permitted real time communication between myself and the patient--permission/consent from patient/guardian was obtained When I met with Yeiym today she had a very difficult time communicating her thoughts and she was fixated on not being able to make any kind of decision According to nursing she is not sleeping or eating With regard to her previous noncompliance with medication she did take her morning Depakote and then after the session today was able to take her afternoon Depakote along with a 10 mg dose of Zyprexa Hopefully the medications will now enable her to sleep and start eating in order to regain her mental clarity Her mental status today was that she was alert but she was confused did not appear to be responding to internal stimuli but did appear to be having difficulty coordinating and communicating her thoughts We will continue with the Depakote 250 mg 3 times a day along with the Zyprexa 10 mg at night Vital Signs Vital Signs Date Time Temp Pulse Resp B/P (MAP) Pulse Ox O2 Delivery O2 Flow Rate FiO2 08/27/19 06:49 98.4 80 14 150/80 (103) Room Air 08/24/19 09:07 99 Current Medications Current Medications Medications (Trade) Dose Ordered Sig/Harry Route PRN Reason Start Time Stop Time Status Last Admin Dose Admin Acetaminophen (Tylenol Tab) 650 mg Q6HP PRN PO HEADACHE or DISCOMFORT 08/24/19 11:15 Al Hydrox/Mg Hydrox/Simethicone (Mylanta) 30 ml Q4HP PRN PO HEARTBURN/INDIGESTION 08/24/19 11:15 Artificial Tears (Akwa Tears) 1 drop QID PRN OU DRY EYES 08/25/19 15:45 08/25/19 16:00 DC Calcitriol (Rocaltrol) 0.25 mcg QHS PO 08/25/19 21:00 Divalproex Sodium (Depakote) 250 mg TID PO 08/25/19 21:00 08/27/19 16:27 Home Med (Med Rec Complete!) ASDIRECTED XX 08/24/19 09:00 08/24/19 08:53 DC [place] Carbonate (Williamson Carbonate) 150 mg BID PO 08/24/19 09:00 08/24/19 22:29 DC 08/24/19 20:54 [place] Carbonate ([place] Carbonate) 150 mg QHS PO 08/25/19 21:00 08/25/19 20:00 DC Magnesium Hydroxide (Milk Of Magnesia) 30 ml DAILYPRN PRN PO CONSTIPATION 08/24/19 11:15 Miscellaneous (Unresolved Clarification Entry) SEE LABEL COMMENTS DAILY XX 08/26/19 09:00 08/26/19 18:06 DC Olanzapine (ZyPREXA ZYDIS) 5 mg Q4HP PRN PO ANXIETY/AGITATION 08/24/19 11:15 08/26/19 13:48 DC Olanzapine (ZyPREXA ZYDIS) 10 mg Q4HP PRN PO ANXIETY/AGITATION 08/26/19 14:00 08/27/19 16:27 Olanzapine (ZyPREXA) 5 mg QHS PO 08/25/19 21:00 08/26/19 13:49 DC Olanzapine (ZyPREXA) 10 mg QHS PO 08/26/19 21:00 Patient Own Medication (Patient'S Own Med) SYSTANE 0.3-0.4% PRESERVAT... QID PRN OU DRY EYE 08/25/19 16:15 08/26/19 12:03 DC Simvastatin (Zocor) 20 mg QHS PO 08/25/19 21:00 Solifenacin (Vesicare) 10 mg QHS PO 08/25/19 21:00 Trazodone HCl (Desyrel) 50 mg QHSP PRN PO INSOMNIA 08/24/19 11:15 Allergies Coded Allergies: No Known Allergies (Unverified , 03/12/16) Salo Paulino MD Aug 27, 2019 17:55
[2019-08-27 18:15] VITALS: BP 158/82
[2019-08-27 18:36] VITALS: BP 144/69
[2019-08-27 20:02] LABS: CALCIUM LEVEL 9.3 MG/DL (8.8-10.2); CREATININE FOR GFR 2.22 MG/DL (0.55-1.30); GLOMERULAR FILTRATION RATE 23.4 (>45)
[2019-08-27] MEDS: SOLIFENACIN 5 MG TAB PO SCH (20:43)
[2019-08-27] MEDS: CALCITRIOL 0.25 MCG CAP (S0169) PO SCH (20:43)
[2019-08-27] MEDS: SIMVASTATIN 20 MG TAB PO SCH (20:43)
[2019-08-27] MEDS: OLANZapine 10 MG TAB PO SCH (20:44)
[2019-08-28 06:52] VITALS: BP 128/84
[2019-08-28] MEDS: DIVALPROEX 250 MG TAB PO SCH ×3 (09:00→21:00)
[2019-08-28 15:52] VITALS: BP 161/82
[2019-08-28] MEDS: SIMVASTATIN 20 MG TAB PO SCH (21:00)
[2019-08-28] MEDS: SOLIFENACIN 5 MG TAB PO SCH (21:00)
[2019-08-28] MEDS: CALCITRIOL 0.25 MCG CAP (S0169) PO SCH (21:00)
[2019-08-28] MEDS: OLANZapine 10 MG TAB PO SCH (21:00)
[2019-08-28 21:47] LABS: CALCIUM LEVEL 9.3 MG/DL (8.8-10.2); CREATININE FOR GFR 2.09 MG/DL (0.55-1.30); GLOMERULAR FILTRATION RATE 25.1 (>45); POTASSIUM SERUM 4.1 MEQ/L (3.5-5.1)
[2019-08-28] MEDS: LORazepam 0.5 MG TAB PO SCH (23:02)
[2019-08-29 06:48] VITALS: BP 147/72
[2019-08-29 07:19] LABS: APPEARANCE, URINE CLEAR (CLEAR); BACTERIA, URINE AUTO NEGATIVE (NEGATIVE); BILIRUBIN, URINE AUTO NEGATIVE (NEGATIVE); BLOOD, URINE BLOOD NEGATIVE (NEGATIVE); COLOR, URINE STRAW (YELLOW); GLUCOSE, URINE (UA) AUTO NEGATIVE (NEGATIVE); KETONE, URINE AUTO TRACE mg/dL (NEGATIVE); LEUKOCYTE ESTERASE, URINE AUTO NEGATIVE (NEGATIVE); MUCUS, URINE SMALL (NEGATIVE); NITRITE, URINE AUTO NEGATIVE (NEGATIVE); PROTEIN, URINE AUTO NEGATIVE (NEGATIVE); RBC, URINE AUTO 0 /HPF (0-3); SPECIFIC GRAVITY URINE AUTO 1.008 (1.002-1.035); SQUAMOUS EPITHELIAL CELL UR AU 0 /HPF (0-6); UROBILINOGEN, URINE AUTO 0.2 mg/dL (0.0-2.0); WBC, URINE AUTO 1 /HPF (0-3)
[2019-08-29] MEDS: LORazepam 0.5 MG TAB PO SCH ×3 (08:41→20:31)
[2019-08-29] MEDS: DIVALPROEX 250 MG TAB PO SCH ×4 (08:41→20:34)
--- NOTE | 2019-08-29 09:27 | MHIPN ---
DATE OF SERVICE: 08/28/2019 The patient was not seen today, as she refused to see me.
[2019-08-29 16:04] VITALS: BP 137/72
[2019-08-29] MEDS: SIMVASTATIN 20 MG TAB PO SCH (20:33)
[2019-08-29] MEDS: OLANZapine 10 MG TAB PO SCH (20:33)
[2019-08-29] MEDS: CALCITRIOL 0.25 MCG CAP (S0169) PO SCH (20:33)
[2019-08-29] MEDS: SOLIFENACIN 5 MG TAB PO SCH (20:33)
[2019-08-30 06:25] VITALS: BP 150/72
[2019-08-30] MEDS: LORazepam 0.5 MG TAB PO SCH ×2 (09:37→21:10)
[2019-08-30] MEDS: DIVALPROEX 250 MG TAB PO SCH ×3 (09:37→21:15)
--- NOTE | 2019-08-30 11:05 | MHIPN ---
DATE OF SERVICE: 08/29/2019 The patient is seen via telepsychiatry due to the current Coronavirus crisis. The patient refused to see me yesterday, however, the staff was concerned because they thought the patient was behaving in an almost catatonic state. She was not eating or drinking anything and of course she was refusing all her medications, so at that point I did order some Ativan for her. She took 1 mg last night and 1 mg this morning. Today, she does not appear to be catatonic. She is eating and she is drinking fluids again. The patient basically just wanted to talk about lithium, she kept perseverating almost about the same thing and she would ask me things like, "well lithium has been discovered", and so when I suggested that she could not take lithium and that maybe she should try the Depakote that is prescribed for her she would then ask me, "has Depakote already been discovered". She kept on asking me if maybe I could just give her more of a dose of lithium and that was all that I could get her to talk about. As a matter of fact, actually staff had to come in and try to encourage the patient to leave the room because she did not want to leave. MENTAL STATUS EXAMINATION: She was alert. I am not able to do a full mental status on her because as I said all she wanted to talk about was the lithium. It was very hard to ask her any other questions. Her insight and judgment is poor. She is definitely delusional. I did not elicit any suicidal or homicidal ideation. DIAGNOSIS: Bipolar disorder, manic. TREATMENT PLAN: We will continue to encourage this patient to take the medication prescribed for her. Of note, all of the blood work that we did on the patient including UA so far has come back normal.
[2019-08-30 16:40] VITALS: BP 140/74
[2019-08-30] MEDS: SIMVASTATIN 20 MG TAB PO SCH (21:00)
[2019-08-30] MEDS: SOLIFENACIN 5 MG TAB PO SCH (21:00)
[2019-08-30] MEDS: CALCITRIOL 0.25 MCG CAP (S0169) PO SCH (21:00)
[2019-08-30] MEDS: OLANZapine 10 MG TAB PO SCH (21:00)
--- NOTE | 2019-08-30 21:43 | MHIPN ---
DATE: 08/30/2019 I am assigned to this patient's care for today. I saw her in the hospital. She said she wanted to make sure it was me, as I was wearing a mask because of the virus pandemic. She asked me to remove the mask, which I did. I reassured her it was me, since we know each other from the outpatient clinic, and I put the mask on again, she asked me to take it off again, and this went on for a few minutes, until she was reassured. She also insisted on reading something that she had written, and she said she wanted to do that before she spoke with me. She went on to read something she had written either yesterday or today. It was dated August 28, but she related she thought that today was August 28, but was easily reoriented. The content was about autism, and somewhat repetitive, and after every few words, she asked me if I was listening, or if I had heard her, and attempts to reassure her, after awhile, were successful. She wondered why we were not meeting in the clinic, and when it was put to her that it was because she was not doing well, and was in the hospital, she seemed to reluctantly accept it. She said she slept well last night, but that she did not remember what had happened the previous night. Says has been eating okay. During our conversation, she kept on insisting that she read to me the pages that she had written, and asked me to read them. They were about autism, as suggested previously. She also indicated again that she wanted to see me in the office. MENTAL STATUS EXAM: She is neat. There is no agitation. No psychomotor retardation. Speech somewhat remains overly productive, though not pressured. Displays quite a bit of perseveration. She is intrusive as well, has a hard time maintaining distance. Affect reactive, fairly broad. There is no evidence of any thoughts of her actively wanting to harm herself or anyone else. She is deluded, mostly delusions of grandeur, but not floridly so at this point. She is alert. There is no fluctuation of consciousness. She is oriented to place, person, almost fully to time. She thought it was August 29, 2019. Judgment and insight remain poor. ASSESSMENT: Bipolar disorder, current episode manic with psychotic features. She is far from baseline; though, judging from the notes and information from staff, she is better clinically than she has been in the last few days. She remains on a one-on-one observation, due to her condition and intrusiveness. PLAN: She has been started on olanzapine while here 10 mg at night, but has declined it so far. She was also on olanzapine as needed, which she has also declined. She has been started on Depakote at 250 mg three times a day; she has only taken it on two occasions, 3 days ago and since then has been declining it. She has, as per previous note, done very well on lithium, but it is thought to be detrimental to her care at this point, given the impact on the kidneys. I have suggested that she consider using the olanzapine and the Depakote. I attempted to explain the reasons why, the rationale, the importance of achieving stability. I also explained why lithium at this point would not be a good choice, though it has served her well for many years. She also indicates that she will take, the medicines, and is encouraged to do so. I would suggest continuing with encouraging her to take the medicine, and would also continue with one-on-one observation for now. She is far from baseline, and we spoke about this. Further recommendations will be made depending on the clinical picture, and she will be seen the assigned psychiatrist tomorrow. VITAL SIGNS: Blood pressure 140/74, pulse 80, temperature 98. The assessment took 30 minutes.
[2019-08-31 07:05] VITALS: BP 142/90
[2019-08-31] MEDS: LORazepam 0.5 MG TAB PO SCH ×2 (09:00→21:00)
[2019-08-31] MEDS: DIVALPROEX 250 MG TAB PO SCH ×3 (09:00→21:00)
[2019-08-31] MEDS: CALCITRIOL 0.25 MCG CAP (S0169) PO SCH (21:00)
[2019-08-31] MEDS: OLANZapine 10 MG TAB PO SCH (21:00)
[2019-08-31] MEDS: SIMVASTATIN 20 MG TAB PO SCH (21:00)
[2019-08-31] MEDS: SOLIFENACIN 5 MG TAB PO SCH (21:00)
[2019-09-01] MEDS ORDERED: LISINOPRIL *2.5 MG* TAB PO ONE (06:30)
[2019-09-01 06:56] VITALS: BP 200/80
[2019-09-01 08:00] VITALS: BP 152/70
[2019-09-01] MEDS: DIVALPROEX 250 MG TAB PO SCH ×3 (09:00→21:00)
[2019-09-01] MEDS: LORazepam 0.5 MG TAB PO SCH ×2 (09:00→23:48)
--- NOTE | 2019-09-01 10:10 | MHIPN ---
DATE OF SERVICE: 09/01/2019 VITAL SIGNS: Blood pressure 142/90, pulse 73, temperature 97.3 CHIEF COMPLAINT: The patient does not offer a complaint as such today. SUBJECTIVE: I had gone to see her in the inpatient unit, and she hesitated, asking what options she had. I informed her she had the option of seeing me or not, and my purpose was explained. She recognized me but wondered if I had seen her the previous day, 08/29/2019. I informed her that I had, and we tried persuading her with staff to be seen in a room. She hesitated quite a bit, then perseverated, and it was not possible to engage her in conversation. She was encouraged by staff to come to the room. Walked slowly in doing so. I removed my mask. I showed her my face,. She was okay with that. Had been somewhat intrusive with staff last night, and her room was changed. MENTAL STATUS EXAMINATION: She is neat. She finds it difficult to cooperate with the attempt at interview. There is no agitation. No psychomotor retardation as such, but she walks slowly. Has had difficulties with mobility, which are longstanding. Speech was not spontaneous, with hesitance, and there was perseveration of it. Affect was restricted in range. Appeared to be internally preoccupied. It is quite possible what she was displaying was also thought blocking. No fluctuation of consciousness. She is oriented to place and person. I am unsure if she was oriented to time. Judgment and insight remain poor. ASSESSMENT: Bipolar disorder, current episode manic with psychotic features. She does not appear as manic as she has the recent few days. More subdued somewhat but has a hard time with organizing her thoughts, possible thought blocking, perseveration. PLAN: Continue attempt at trying to persuade the patient to take her medicines. Has not taken the olanzapine. Has declined the Depakote, as well, other than one occasion last night. I would suggest continuing to encourage her to. The possibility of cognitive deficits being exacerbated in the manic phase also needs to be taken into consideration. Continue other observations. Further recommendations will be made depending on the clinical picture. MTDD
--- NOTE | 2019-09-01 14:40 | IPNPDOC ---
Subjective Date Seen The patient was seen on 09/01/19. Subjective Chief Complaint/HPI Patient has been having high blood pressures since admission . Says she has not been on any blood pressure medications. Last night it was 200/80 so the night hospitalist was called. She was started on amlodipine and lisinopril last ngiht with better control this morning. Today she denied any headache or dizziness, denied any chest pain or sob, denied any visual difficulties. Objective Physical Examination General Exam: Positive: Alert, Cooperative, No Acute Distress Eye Exam: Positive: PERRLA, Conjunctiva & lids normal, EOMI; Negative: Sclera icteric ENT Exam: Positive: Atraumatic, Mucous membr. moist/pink, Pharynx Normal Neck Exam: Positive: Supple; Negative: JVD, thyromegaly Chest Exam: Positive: Clear to auscultation, Normal air movement Heart Exam: Positive: Rate Normal, Regular Rhythm, Normal S1, Normal S2; Negative: Murmurs, Rubs Abdomen Exam: Positive: Normal bowel sounds, Soft; Negative: Tenderness, Hepatospenomegaly Extremity Exam: Positive: Normal pulses; Negative: Clubbing, Cyanosis, Edema Skin Exam: Positive: Nl turgor and temperature; Negative: Rash, Breakdown Assessment /Plan Assessment Hypertension uncontrolled amlodipine started. will not give lisinopril due to CKD stage 4. Chronic kidney disease with a baseline creatinine of approximately 2.2 creatinine at baseline says follows with Dr Villanueva. Dyslipidemia statin Hypoparathyroidism s/p parathyroidectomy calcitriol Will continue to follow while she is in the hospital. Dry eyes eye drops Overactive bladder vesicare Bipolar diorder with this episode being manic with some cognitive impairment which is now more due to mir. refusing to take her medications this could be driving up her blood pressure. Plan/VTE VTE Prophylaxis Ordered?: No (freely ambulatory.) VS, I&O, 24H, Fishbone Vital Signs/I&O Vital Signs Date Time Temp Pulse Resp B/P (MAP) Pulse Ox O2 Delivery O2 Flow Rate FiO2 09/01/19 08:00 96.6 76 14 152/70 (97) 100 Room Air Laboratory Data Microbiology Microbiology 08/29/19 Urine Culture - Final, Complete 08/24/19 Urine Culture - Final, Complete DEEJAY BLANK MD Sep 01, 2019 14:40
[2019-09-01 16:16] VITALS: BP 146/82
[2019-09-01] MEDS ORDERED: LITHIUM CARBONATE 150 MG CAP PO STA (18:31)
[2019-09-01] MEDS: SOLIFENACIN 5 MG TAB PO SCH (21:00)
[2019-09-01] MEDS: SIMVASTATIN 20 MG TAB PO SCH (21:00)
[2019-09-01] MEDS: CALCITRIOL 0.25 MCG CAP (S0169) PO SCH (21:00)
[2019-09-01] MEDS: amLODIPine 5 MG TAB PO SCH (21:00)
[2019-09-02] MEDS: OLANZapine 10 MG TAB PO SCH ×2 (00:11→21:00)
[2019-09-02 06:38] VITALS: BP 121/62
[2019-09-02] MEDS ORDERED: LISINOPRIL *2.5 MG* TAB PO SCH (09:00)
[2019-09-02] MEDS: amLODIPine 5 MG TAB PO SCH ×2 (09:41→21:00)
[2019-09-02] MEDS: LORazepam 0.5 MG TAB PO SCH ×2 (09:41→21:00)
[2019-09-02] MEDS: DIVALPROEX 250 MG TAB PO SCH ×3 (09:41→21:00)
[2019-09-02] MEDS: LITHIUM CARBONATE 150 MG CAP PO SCH (09:41)
--- NOTE | 2019-09-02 09:52 | MHIPNPDOC ---
[facility] Progress Note Progress Note DATE OF SERVICE: 09/02/19 Josie presents today for concerns regarding a follow up. Patient was attempted to be met with today, however she is quite agitated and psychotic and had recently gone to bed. The patient did not respond. Thus, further provocation was not indicated at this time due to severe psychosis. Objective Sleeping comfortably in bed, in no distress Assessment F20.89 Other schizophrenia Plan She is lying comfortably in bed sleeping and in no apparent distress. We will continue medications as currently. We will continue close one-to-one observation for her severe agitation. Vital Signs Vital Signs Date Time Temp Pulse Resp B/P (MAP) Pulse Ox O2 Delivery O2 Flow Rate FiO2 09/02/19 06:38 98.0 67 18 121/62 (81) 09/01/19 08:00 100 Room Air Current Medications Current Medications Medications (Trade) Dose Ordered Sig/Harry Route PRN Reason Start Time Stop Time Status Last Admin Dose Admin Acetaminophen (Tylenol Tab) 650 mg Q6HP PRN PO HEADACHE or DISCOMFORT 08/24/19 11:15 Al Hydrox/Mg Hydrox/Simethicone (Mylanta) 30 ml Q4HP PRN PO HEARTBURN/INDIGESTION 08/24/19 11:15 Amlodipine Besylate (Norvasc) 2.5 mg DAILY PO 09/02/19 09:00 09/01/19 11:57 DC Amlodipine Besylate (Norvasc) 5 mg BID PO 09/01/19 21:00 Artificial Tears (Akwa Tears) 1 drop QID PRN OU DRY EYES 08/25/19 15:45 08/25/19 16:00 DC Calcitriol (Rocaltrol) 0.25 mcg QHS PO 08/25/19 21:00 Divalproex Sodium (Depakote) 250 mg TID PO 08/25/19 21:00 08/30/19 21:15 Home Med (Med Rec Complete!) ASDIRECTED XX 08/24/19 09:00 08/24/19 08:53 DC Lisinopril (Prinivil) 2.5 mg DAILY PO 09/02/19 09:00 09/01/19 11:57 DC [place] Carbonate (Chalmette Carbonate) 150 mg BID PO 08/24/19 09:00 08/24/19 22:29 DC 08/24/19 20:54 [place] Carbonate (Ch[place] Carbonate) 150 mg DAILY PO 09/02/19 09:00 [place] Carbonate (Ch[place] Carbonate) 150 mg QHS PO 08/25/19 21:00 08/25/19 20:00 DC [place] Carbonate (Ch[place] Carbonate) 150 mg STAT STAT PO 09/01/19 18:31 09/01/19 18:33 DC 09/01/19 18:35 Lorazepam (Ativan) 0.5 mg BID PO 08/28/19 21:00 09/01/19 23:48 Magnesium Hydroxide (Milk Of Magnesia) 30 ml DAILYPRN PRN PO CONSTIPATION 08/24/19 11:15 Miscellaneous (Unresolved Clarification Entry) SEE LABEL COMMENTS DAILY XX 08/26/19 09:00 08/26/19 18:06 DC Olanzapine (ZyPREXA ZYDIS) 5 mg Q4HP PRN PO ANXIETY/AGITATION 08/24/19 11:15 08/26/19 13:48 DC Olanzapine (ZyPREXA ZYDIS) 10 mg Q4HP PRN PO ANXIETY/AGITATION 08/26/19 14:00 Olanzapine (ZyPREXA) 5 mg QHS PO 08/25/19 21:00 08/26/19 13:49 DC Olanzapine (ZyPREXA) 10 mg QHS PO 08/26/19 21:00 09/02/19 00:11 Patient Own Medication (Patient'S Own Med) SYSTANE 0.3-0.4% PRESERVAT... QID PRN OU DRY EYE 08/25/19 16:15 08/26/19 12:03 DC Simvastatin (Zocor) 20 mg QHS PO 08/25/19 21:00 Solifenacin (Vesicare) 10 mg QHS PO 08/25/19 21:00 Trazodone HCl (Desyrel) 50 mg QHSP PRN PO INSOMNIA 08/24/19 11:15 09/01/19 23:48 Allergies Coded Allergies: No Known Allergies (Unverified , 03/12/16) JIM MARIE DO Sep 02, 2019 09:52
--- NOTE | 2019-09-02 11:26 | MHIPN ---
DATE: 09/01/2019 I am assigned to this patient's care today. She says is okay, but was very vague about it, she was seen in the presence of staff, still on one-to-one observation, she hesitated before attempting to talk to me, and then she agreed to do so, after being gently persuaded. We were in her room, she sat down, we had guided her there, though she was hesitant. She asked me to take my mask off for a brief while, which I did, to reassure her that it was me and then she indicated she recognized me. Says she wanted to talk to me about various things, but had hesitancy in articulating her thoughts. She was also somewhat repetitive in her statements, and her questions. She asked the purpose of me wearing the mask, and if I had the flu, and the purpose was explained. She then asked me that again within a minute or so. She said she had slept, but that she had wanted to talk about various diseases, including schizophrenia, but was unable to elaborate further. She then indicated that she would name the virus that we are all protecting ourselves from, but could not name it. It was much later when her speech was more spontaneous. She was able to indicate, during our discussion, that she had used lithium in the past, for many years, and she acknowledged that she had seen me in the office. She also indicates she would take what I recommend. She says she has thoughts on particular illnesses as well. She expressed awareness that she had been on lithium in the past, and that she had been hospitalized a few months ago when she had been confused, and lithium levels were high. [place] levels lowered quite considerably after that. She was 150 mg daily just prior to her hospitalization this time around. MENTAL STATUS EXAMINATION: She is neat. Cooperative, but with much persuasion. There is no agitation. Speech became somewhat more fluent. She felt a bit anxious; for example, when I was leaving or when I indicated that I would leave. Otherwise, quite hesitant of speech, but less so than yesterday, and there were more sentences that were coherent. She could not maintain her train of thought however and displayed what is possibly thought blocking. Affect is restricted in range, but more reactive than yesterday, broader. She did not give any direct indication of any thoughts of harming herself. Denied any suicidal thoughts or intents. No homicidal ideas or intents. Has delusions, currently not very prominent, but of grandeur. No fluctuation of consciousness. She is alert. Generally able to maintain attention. She is oriented to person and place, but this took prompting, guiding her to name the hospital. She knew it was summer in August, the beginning, and the year itself. Attempts were made to see if she could be oriented; for example, asking her the celebration at the beginning of August, August 27, and she was able to name it, but was not able to calculate the date today, from August 27. Judgment remains poor, as is insight. VITAL SIGNS: Blood pressure 146/82. Pulse 78. Temperature 98.7. ASSESSMENT: Bipolar disorder, episode manic with psychotic features. Cesia is maintained, but not in terms of necessarily an elated mood, has some delusions of grandiosity, though more subdued. Continues having difficulty with organizing thoughts, this is a bit less visible than yesterday. Has not taken medicine, the olanzapine or the Depakote. PLAN: Various options are considered. Given the lack of improvement, and her not taking the olanzapine or the Depakote, it is probably preferable to revert to lithium, as she has done well on it in the past, and this is despite concerns related to its nephrologic side effects. Her blood pressure has also been high, and she has been seen by the hospitalist, whose input is appreciated. I understand from staff that the patient's family, particularly her sister, have called with the view that they would also look at the patient resuming lithium. The advantages of her being on lithium, given the previous stability on it, and current lack of progress, probably outweigh the drawbacks. Due to this, I spoke with her about resuming lithium. She indicated she would take it, provided I was there, and that is when I ordered it as a stat, 150 mg, and with much persuasion, in the presence of staff members and myself, she then took it. I have suggested that it is prescribed at 150 mg daily. She has refused the other mood stabilizers, the olanzapine and Depakote, but I will keep them on board for now, to see if she does take them, and then will look at eliminating one of them, the olanzapine, because of potential interactions they have with the lithium. Will continue with other observations, currently, including one-on-one care, as well. Further recommendations will be made depending on the clinical picture. There may need to be consideration for treatment over objection, though would prefer that not be the case. The assessment took about 45 minutes.
[2019-09-02 16:11] VITALS: BP 114/56
[2019-09-02] MEDS: SIMVASTATIN 20 MG TAB PO SCH (21:00)
[2019-09-02] MEDS: SOLIFENACIN 5 MG TAB PO SCH (21:00)
[2019-09-02] MEDS: CALCITRIOL 0.25 MCG CAP (S0169) PO SCH (21:00)
--- NOTE | 2019-09-03 05:57 | IPNPDOC ---
Text Note Date of Service The patient was seen on 09/02/19. NOTE Patient's blood pressure has been well controlled. Most of the readings has been in 120s today. As patient is often refusing meds so only got 5 mg of amlodipine on 09/01/19 with control of blood pressure. Will reduce amlodipine dose to 2.5 mg bid. will sign off at present. Please reconsult us prn. VS,Fishbone, I+O VS, Fishbone, I+O Vital Signs Date Time Temp Pulse Resp B/P (MAP) Pulse Ox O2 Delivery O2 Flow Rate FiO2 09/02/19 16:11 97.0 68 16 114/56 (75) 09/01/19 08:00 100 Room Air DEEJAY BLANK MD Sep 03, 2019 05:57
[2019-09-03 07:16] VITALS: BP 119/65
[2019-09-03] MEDS: LORazepam 0.5 MG TAB PO SCH ×2 (08:55→21:23)
[2019-09-03] MEDS: LITHIUM CARBONATE 150 MG CAP PO SCH (08:56)
[2019-09-03] MEDS: DIVALPROEX 250 MG TAB PO SCH ×3 (08:56→21:24)
--- NOTE | 2019-09-03 13:20 | MHIPN ---
DATE: 09/02/2019 This is an attempt to contact her daughter, Carolina ([phone]). This was to inform her daughter about my visit when I had seen Ms. Jorge yesterday, I was assigned to her care yesterday, and I wanted to inform Carolina about this. I have just spoken with the nurse looking after Ms. Jorge today, Mercy, who informed me that she has been doing better, and had slept during the day today, had slept last night, a few hours. I understand from the nurse that the patient is more coherent, and has taken her medicines, including the lithium, two doses of the Depakote today, and she had taken the olanzapine last night as well. I attempted to call the patient's daughter to inform her of this, but there was no reply, and no opportunity to leave a message. I was not assigned to the patient's care in the inpatient unit today, 09/02/2019. My information regarding her state today was obtained from the patient's nurse.
[2019-09-03 16:42] VITALS: BP 136/84
[2019-09-03 21:20] VITALS: BP 180/90
[2019-09-03] MEDS: CALCITRIOL 0.25 MCG CAP (S0169) PO SCH (21:23)
[2019-09-03] MEDS: SIMVASTATIN 20 MG TAB PO SCH (21:23)
[2019-09-03] MEDS: OLANZapine 10 MG TAB PO SCH (21:24)
[2019-09-03] MEDS: SOLIFENACIN 5 MG TAB PO SCH (21:24)
[2019-09-03 22:44] VITALS: BP 118/56
[2019-09-04 06:14] VITALS: BP 148/70
[2019-09-04] MEDS: DIVALPROEX 250 MG TAB PO SCH ×3 (08:29→21:39)
[2019-09-04] MEDS: LITHIUM CARBONATE 150 MG CAP PO SCH (08:29)
[2019-09-04] MEDS: LORazepam 0.5 MG TAB PO SCH ×2 (08:29→21:38)
--- NOTE | 2019-09-04 08:52 | MHIPN ---
DATE OF SERVICE: 09/03/2019 Today, the remains very confused. The only thing that she was able to tell me was she kept telling me her name over again and kept asking if I knew her name. I could not get her to answer any questions for me. Apparently, the patient has been taking her medications since yesterday. MENTAL STATUS EXAMINATION: As I said, I am not really able to complete a mental status exam. The only thing that the patient kept perseverating about was telling me what her name was and asking me if I knew what her name was. DIAGNOSIS: Bipolar disorder, manic with psychotic symptoms. TREATMENT PLAN: At this point, we will continue the patient on her current medications and continue to encourage her to take her medications. She still remains quite psychotic.
--- NOTE | 2019-09-04 12:03 | MHIPN ---
DATE: 09/03/2019 The patient has been seen by Dr. Nolasco today, who is assigned to her care. I was seeing other patients in the inpatient unit, and saw Ms. Jorge for a brief while as well, said she was doing okay, but she looks a bit tired, denies feeling tired. Says has had a good night. She spoke of fantasies that she has had regarding pandemic, and talked about time-frames of the fantasy. She also indicates that was part of the fantasy, but she did not go into details. MENTAL STATUS EXAMINATION: She is sitting up in bed. She is neat. She is cooperate, no agitation. No psychomotor retardation as such, but she has confused speech, possible thought blocking, though less prominent than it has been earlier in the week. She is less anxious , she is alert, oriented to place, person but not to time, knew it was August 2019. Judgment and insight remain compromised. ASSESSMENT: - Bipolar disorder, current episode manic with psychotic features. - Less overtly manic, but has thought blocking, possibly cognitive difficulties as well, indicates somewhat improved. - Has been taking the lithium, the Depakote, but has declined the olanzapine. - Further recommendations will be made depending on the clinical picture, encourage the patient to participate in activities as tolerated, and she is still on the 1:1 observation. - Possibility of her underlying cognitive difficulties precipitated by the mir also needs to be taken into consideration. MTDD
[2019-09-04 16:32] VITALS: BP 130/76
[2019-09-04] MEDS: SOLIFENACIN 5 MG TAB PO SCH (21:38)
[2019-09-04] MEDS: OLANZapine 10 MG TAB PO SCH (21:38)
[2019-09-04] MEDS: CALCITRIOL 0.25 MCG CAP (S0169) PO SCH (21:38)
[2019-09-04] MEDS: SIMVASTATIN 20 MG TAB PO SCH (21:39)
[2019-09-05 06:31] VITALS: BP 154/76
[2019-09-05] MEDS: DIVALPROEX 250 MG TAB PO SCH ×3 (09:42→21:20)
[2019-09-05] MEDS: LITHIUM CARBONATE 150 MG CAP PO SCH (09:42)
[2019-09-05] MEDS: LORazepam 0.5 MG TAB PO SCH ×2 (09:42→21:19)
[2019-09-05 16:35] VITALS: BP 136/76
[2019-09-05] MEDS: SIMVASTATIN 20 MG TAB PO SCH (21:00)
[2019-09-05] MEDS: OLANZapine 10 MG TAB PO SCH (21:00)
[2019-09-05] MEDS: CALCITRIOL 0.25 MCG CAP (S0169) PO SCH (21:19)
[2019-09-05] MEDS: SOLIFENACIN 5 MG TAB PO SCH (21:19)
[2019-09-06 06:51] VITALS: BP 138/81
[2019-09-06] MEDS: LORazepam 0.5 MG TAB PO SCH ×2 (09:42→20:24)
[2019-09-06] MEDS: LITHIUM CARBONATE 150 MG CAP PO SCH (09:42)
[2019-09-06] MEDS: DIVALPROEX 250 MG TAB PO SCH ×3 (09:42→20:24)
[2019-09-06 15:58] VITALS: BP 140/74
[2019-09-06] MEDS: SIMVASTATIN 20 MG TAB PO SCH (20:23)
[2019-09-06] MEDS: CALCITRIOL 0.25 MCG CAP (S0169) PO SCH (20:23)
[2019-09-06] MEDS: SOLIFENACIN 5 MG TAB PO SCH (20:23)
[2019-09-07 06:46] VITALS: BP 139/62
[2019-09-07] MEDS: LITHIUM CARBONATE 150 MG CAP PO SCH ×2 (09:21→22:13)
[2019-09-07] MEDS: LORazepam 0.5 MG TAB PO SCH ×2 (09:21→22:14)
[2019-09-07] MEDS: DIVALPROEX 250 MG TAB PO SCH ×3 (09:23→22:12)
[2019-09-07 09:26] LABS: VALPROIC ACID (DEPAKOTE) 90.4 UG/ML (50.0-100.0)
[2019-09-07 10:02] LABS: LITHIUM LEVEL < 0.20 MEQ/L (0.60-1.20)
[2019-09-07] MEDS ORDERED: VARIBAR NECTAR 40% w/v 240ML SUSP BTL As Ordered ONE (10:33)
[2019-09-07] MEDS ORDERED: VARIBAR PUDDING 40% w/v 230ML TUBE As Ordered ONE (10:33)
[2019-09-07] MEDS ORDERED: E-Z-PAQUE 96% w/w SUSP 176GM BTL As Ordered ONE (10:33)
--- NOTE | 2019-09-07 12:52 | MHIPN ---
DATE: 09/06/2019 VITAL SIGNS: Blood pressure 140/74, pulse 71, temperature 97.4. CHIEF COMPLAINT: Says she is okay. SUBJECTIVE: Seen for followup. I'm assigned to her care today. I have seen her in the presence of staff. Says feels okay and that she had a very good night. Says feels good. She denies feeling anxious, in fact does not remember being anxious a few days ago. She has been in touch with her sister, her daughter, her sister is visiting from [place]. To come inside they had a cottage that they had that the patient had rented for a week. Says that her sister had been planning to come up. She does not remember feeling anxious last week and says has a hard time expressing what her anxiety is. Had a swallow test done today, says had difficulties eating on a couple of occasions here and tomorrow there is a followup for a Barium swallow. Presumably has had this difficulty prior to coming to the hospital, but says can't remember. Does not think that she feels exceedingly tired, though acknowledges feeling a bit tired during the day. MENTAL STATUS EXAMINATION: She is neat, she is cooperative. No agitation, no psychomotor retardation. Answers questions logically, coherently. Affect is restricted somewhat, but shows reactivity. She is less anxious. Denies any suicidal thoughts or intents. No homicidal ideas or intents. She is alert, oriented to time, place and person. Can spell the word house forwards and backwards. Can recall 2 out of 3 objects after 5 minutes. Judgment is improved, as is insight. ASSESSMENT: 1. Bipolar disorder, current episode manic with psychotic features. Clinically appears improved, particularly compared to about three days ago, speech is fluent, as are her thoughts. No evidence of any thought blocking, which was observed last week. There is the sense of seeming somewhat tired. Cognitively improved as well. PLAN: I suggest continuing with lithium at the current dose. Continue Depakote as at present. Discontinue the olanzapine, I really don't see a need for that. I would suggest decreasing the lorazepam 0.25 mg daytime, 0.5 mg in the evening for a total of 0.75 mg a day (she is currently on 1 mg a day). I would suggest obtaining a lithium level, as well as a valproic acid level. Improvements made are encouraging. The patient appears clinically improved. Wishes to go home and I would suggest that if current progress continues anticipate she should be able to later in the week. The patient is to be encourage to participate in activities in the unit as tolerated.
[2019-09-07 17:28] VITALS: BP 156/77
--- NOTE | 2019-09-07 19:29 | MHIPN ---
DATE: 09/07/2019 VITAL SIGNS: Blood pressure 156/77, pulse 74, temperature 97.5. CHIEF COMPLAINT: Says feels okay. SUBJECTIVE: Seen for followup. Indicates feels okay, but has a hard time expanding that further at times. Says slept at night, and has taken naps during the afternoon. Appetite is okay. She had an exam for a swallow; I understand she did not do well, that may be repeated. Does not recall coming to the hospital. Does not recall much of what happened just prior to that, but when reminded, suggests that she does remember thinking that the house was on fire. MENTAL STATUS EXAM: She is neat. She is cooperative. Possibly some psychomotor retardation. No agitation. She is coherent but repetitive in terms of some of her statements and asks me to repeat some of the statements fairly frequently, has a hard time with grasping information, particularly in terms of short-term memory. Affect is restricted but reactive. She is somewhat tired, though suggests that she does not feel it. Denies any suicidal thoughts or intent. No homicidal ideas or intent. No overt delusions elicited, though does say has fantasies, tried to differentiate them from fantasies when she was manic. She is alert. She is oriented to place, not fully to time, initially thought it was September 19, then indicated September 06. She does not display any fluctuation of consciousness. Judgment remains compromised, though improved. Insight is somewhat improved. ASSESSMENT: Bipolar disorder, current episode manic with psychotic features. Though clinically improved, appears more tired than yesterday when she was clearer. Affect is more restricted. Has difficulty with short-time memory, unclear if this is precipitated by the mir, or exacerbated by it. It may also be the result of her current state. PLAN: I suggest that the lithium is increased to 150 mg twice a day. The [place] level done early this morning was below 0.2. The increase in the lithium is discussed, she understands it. She is aware of the impact that it may have on her kidneys, but she has done better on the lithium than on anything else. In view of this, will look at increasing it and then obtain a lithium level in a few days. Meanwhile, she is to continue with the Depakote at 250 mg three times a day. The rationale for that is discussed. Valproic acid level today is 90. When we discussed the combination of lithium and Depakote, she asked about that repetitively after a few seconds. She indicated that book cleaner had informed her that high blood pressure may be also impacting the kidneys. I would encourage activities as tolerated. Though there has been improvement in her clinical condition over the last couple of days, she is not well enough for discharge. Wishes to go and spend time with the family at the [facility], but I do not think that she is ready for that. Further recommendations will be made depending on the clinical picture. We met for 25 minutes.
[2019-09-07] MEDS: SIMVASTATIN 20 MG TAB PO SCH (21:00)
[2019-09-07] MEDS: CALCITRIOL 0.25 MCG CAP (S0169) PO SCH (22:11)
[2019-09-07] MEDS: SOLIFENACIN 5 MG TAB PO SCH (22:11)
--- NOTE | 2019-09-07 22:52 | REP ---
Examination Requested: Cookie Swallow Reason For Exam: Rule out aspiration The procedure was performed by TRAVIS Haney, under the direct supervision of Dr. Lopez. The procedure was performed with Moriah Steele from speech pathology present. 5 ml aliquots of thin, mixed fruit, and pill consistency barium was administered. No aspiration or penetration was visualized throughout the course of the exam. The detailed report of this examination will be provided by speech pathology. 3.4 minutes of fluoroscopy time was utilized for this procedure. Reviewed by TRAVIS Villalobos 09/07/2019 12:32 P Electronically Signed by Wilbert Lopez MD 09/07/2019 10:44 P
[2019-09-08 06:39] VITALS: BP 133/63
[2019-09-08] MEDS ORDERED: OXYMETAZOLINE 0.05% NASAL SPRAY (AFRIN) PRN (08:00)
[2019-09-08] MEDS: LORazepam 0.5 MG TAB PO SCH ×2 (09:53→20:17)
[2019-09-08] MEDS: LITHIUM CARBONATE 150 MG CAP PO SCH ×2 (09:53→20:17)
[2019-09-08] MEDS: DIVALPROEX 250 MG TAB PO SCH ×3 (09:53→20:18)
[2019-09-08 17:23] VITALS: BP 154/86
[2019-09-08] MEDS: SOLIFENACIN 5 MG TAB PO SCH (20:17)
[2019-09-08] MEDS: CALCITRIOL 0.25 MCG CAP (S0169) PO SCH (20:18)
[2019-09-08] MEDS: SIMVASTATIN 20 MG TAB PO SCH (20:18)
[2019-09-09 06:54] VITALS: BP 146/80
--- NOTE | 2019-09-09 07:38 | MHDSPDOC ---
[facility] Discharge Summary Discharge Summary DATE OF ADMISSION: Aug 24, 2019 at 11:41 DATE OF DISCHARGE: DISCHARGE DIAGNOSES: 1. . 2. . REASON FOR ADMISSION: CONSULTANTS INVOLVED: TREATMENT AND PROGRESS ON THE UNIT : . HOSPITAL COURSE: DISCHARGE ASSESSMENT: MENTAL STATUS EXAMINATION ON DISCHARGE: Patient is a -year old female, who is . Speech is . Language skills are . Thought processes including: . Thought content: . Abstract reasoning, and computation: . Description of associations: . Description of abnormal or psychotic thoughts: . Judgment: . Insight: . Orientation to . Recent and remote memory: . Attention span and concentration: . Language: . Fund of knowledge: . Mood: . Affect: . MEDICATIONS ON DISCHARGE: - for . - for . - for . PLAN/FOLLOWUP ARRANGEMENTS: . The amount of time spent in the coordination of care for this patient was approximately minutes. Vital Signs/I&Os Vital Signs Date Time Temp Pulse Resp B/P (MAP) Pulse Ox O2 Delivery O2 Flow Rate FiO2 09/09/19 06:54 97.7 73 14 146/80 (102) 99 Room Air Medications Scheduled Calcitriol (Calcitriol) 0.25 Mcg Capsule, 0.25 MCG PO QHS, (Reported) [place] Carbonate ([place] Carbonate) 150 Mg Capsule, 150 MG PO QHS, (Reported) Simvastatin (Simvastatin) 20 Mg Tablet, 20 MG PO QHS, (Reported) Solifenacin Succinate (Solifenacin Succinate) 10 Mg Tablet, 10 MG PO QHS, (Reported) Scheduled PRN Lorazepam (Ativan) 0.5 Mg Tablet, 0.5 MG PO BID PRN for ANXIETY, (Reported) Propylene Glycol/Peg 400 (Systane 0.3-0.4% Eye Drops) 15 Ml Drops, 1 DROP OU QID PRN for DRY EYES, (Reported) USES PRESERVATIVE FREE Allergies Coded Allergies: No Known Allergies (Unverified , 03/12/16) JIM MARIE DO Sep 09, 2019 07:38
[2019-09-09 08:28] VITALS: BP 146/80
[2019-09-09 08:58] VITALS: BP 146/80
[2019-09-09] MEDS: LORazepam 0.5 MG TAB PO SCH (08:58)
[2019-09-09] MEDS: LITHIUM CARBONATE 150 MG CAP PO SCH (08:58)
[2019-09-09] MEDS: DIVALPROEX 250 MG TAB PO SCH (08:59)
--- NOTE | 2019-09-09 09:55 | MHIPN ---
DATE OF SERVICE: 09/08/2019 VITAL SIGNS: Blood pressure 124/74, pulse 84, temperature 97.3. CHIEF COMPLAINT: Feels good. SUBJECTIVE: Seen for followup in the presence of staff. She says she feels good. She was napping. When I saw her, she woke up. Says has naps in the afternoon and that she has essentially been bored, as she does not have much to do. Says slept very well last night. Moods are good. She has been eating well. Has interacted with others quite well. Says only vaguely remembers coming in and some of the events. Remembers some of the conversations with me during her stay here and including when she thought that people may make discoveries when manic. Moods are even keeled. Feels rested. She says has been in touch with her sister, her daughter, who are at a cottage that she has rented, and she wishes to join them for the few days that they have left there at the cottage. She also remembers talking about other matters, including her thinking that she has not been creative. MENTAL STATUS EXAMINATION: She is sitting up in bed. She is neat. She is cooperative. There is no agitation. No psychomotor retardation. Speech is fluent. No hesitancy. It is normal in amount and rate. She denies any thoughts of harming herself. No evidence of any thoughts of harming anyone else. No fluctuation of consciousness. No delusional ideations elicited. Does not appear internally preoccupied. She is alert, oriented to time, place, and person. Can spell the word house forwards and backwards. Can recall three out of three objects after 5 minutes and can recall them after 10 minutes and then after 15 minutes, as well. Judgment is improved, as is insight. ASSESSMENT: 1. Bipolar disorder, current episode manic with psychotic features. This is almost in full remission. 2. She is doing well and appears closest to her baseline that I have seen since her admission. No major cognitive deficits are present, either, and attention and short-term memory are good. Her thought processes are fluent, and she is coherent. PLAN: I would suggest continuing current care, including the lithium carbonate at 150 mg twice a day. Continue lorazepam at a total of 0.75 mg daily in divided doses. Continue Depakote at 250 mg three times a day. Continue trazodone 50 mg at night as needed for insomnia. She has used it only on one occasion. She is clinically much improved. Had investigations regarding a swallow done today, as well. Says that went well. She wishes to go home. We discussed this at length and thinks she is closer to discharge than she has been at any time since admission. There has been clinically improvement over the last few days, as well. She is at present near her baseline. She is eager to go and join her family, as they are at a cottage that they have only for the rest of the week. (Today is Friday.) Given this, I suggested that should this improvement continue, the patient can be discharged tomorrow. We first thought of Friday morning, but she would like more time with her family. Her sister is in from [place]. She is also aware I am not here tomorrow, so this will depend ultimately on the clinician assigned to her but will advocate for the discharge should the current stability continue. If she is discharged, she can followup with me at the clinic next week. I would look at obtaining a lithium level at some point next week prior to the outpatient visit. She agrees to this and is willing to consider going tomorrow. There are risks of her going too early, and we discussed those, as well; but given current progress, will aim for discharge in the next 24-48 hours. My recommendations are discussed with her at length. She would also rather I spoke with her daughter and that if I am not able to, then with her sister. I will give her daughter a call. The assessment took 30 minutes. ADDENDUM: Phone call with her daughter, Carolina, telephone number [phone]. I spoke with her daughter, and I discussed at length the patient's current condition, the progress over the last few days, and the proposed plan for discharge, in that should matters remain steady, would consider discharging her tomorrow, provided whoever is assigned to her also agrees with that. Her current state was discussed at length, and so were followup proposals, and the medication she is on, and the indications. We also discussed what to watch out for upon discharge, and if there are changes, she is to be brought back to the hospital. We also discussed her following up with me as an outpatient. She is aware of this, and her questions were answered as well. Per the patient's request, I spoke with her daughter, and I have asked her daughter to relay this information to the patient's sister, and the patient is comfortable with that. Addendum dictated: 09/08/2019 1749 Addendum transcribed: 09/09/2019 0938 dillan
[2019-09-09] MEDS ORDERED: ATIV1TAB10 PO ×3 (11:23→12:31)
[2019-09-09] MEDS ORDERED: AMLO25TA PO (11:23)
[2019-09-09] MEDS ORDERED: SOLI5TAB PO (11:23)
[2019-09-09] MEDS ORDERED: CALC1CAP31 PO (11:23)
[2019-09-09] MEDS ORDERED: DEPA250T32 PO (11:23)
[2019-09-09] MEDS ORDERED: LITH150C PO (11:23)
[2019-09-09] MEDS ORDERED: SIMV20TA22 PO (11:23)
== END 2019-09-09 15:16 | disposition home or self-care (01) | DRG 885 ==
LOC: M ED 03:59 → M PSY 11:41
PROVIDERS: ADMIT Family Medicine; ATTEND Psychiatry & Neurology Addiction Medicine
DX: F31.2 Bipolar disorder, current episode manic severe with psychotic features (principal); N18.4 Chronic kidney disease, stage 4 (severe); N25.81 Secondary hyperparathyroidism of renal origin; Z79.899 Other long term (current) drug therapy; I12.9 Hypertensive chronic kidney disease with stage 1 through stage 4 chronic kidney disease, or unspecified chronic kidney disease; E78.5 Hyperlipidemia, unspecified

== ENCOUNTER → 2019-10-05 | Outpatient (CLI) | payer MEDICARE ==
[~2019-10-05] MED LIST changes: +AMLO25TA PO; +ATIV1TAB10 PO; +DEPA250T32 PO; +LITH150C PO; +SOLI10TA PO; +SOLI5TAB PO
== END ==
LOC: M LABSMTC 17:15
PROVIDERS: ATTEND Anesthesiology
DX: Z20.828 Contact with and (suspected) exposure to other viral communicable diseases (principal)
CPT/HCPCS: 87486; 87581; 87633; 87798; C9803

== ENCOUNTER → 2020-03-21 | Outpatient (CLI) | payer MEDICARE ==
[2020-03-21 14:55] LABS: CALCIUM LEVEL 9.7 MG/DL (8.8-10.2); CREATININE FOR GFR 2.61 MG/DL (0.55-1.30); GLOMERULAR FILTRATION RATE 19.4 (>45); LITHIUM LEVEL 0.32 MEQ/L (0.60-1.20)
== END ==
LOC: M PLALAB 09:59
PROVIDERS: ATTEND Psychiatry & Neurology Psychiatry
DX: Z79.899 Other long term (current) drug therapy (principal)

== ENCOUNTER → 2020-05-12 | Outpatient (CLI) | payer MEDICARE ==
[2020-05-12 14:30] LABS: LITHIUM LEVEL 0.26 MEQ/L (0.60-1.20); VALPROIC ACID (DEPAKOTE) 72.9 UG/ML (50.0-100.0)
== END ==
LOC: M PLALAB 11:00
PROVIDERS: ATTEND Psychiatry & Neurology Psychiatry
DX: Z51.81 Encounter for therapeutic drug level monitoring (principal); Z79.899 Other long term (current) drug therapy; F31.74 Bipolar disorder, in full remission, most recent episode manic

== ENCOUNTER → 2020-06-16 | Outpatient (CLI) | payer MEDICARE ==
--- NOTE | 2020-06-21 09:29 | SLEEPCENT ---
NOCTURNAL POLYSOMNOGRAPHY DATE: 06/16/2020 ORDERED BY: Bhavik Cervantes M.D. Nocturnal polysomnography was performed for retitration of pressure therapy in this patient with obstructive sleep apnea syndrome. For testing a ResMed F30 full face mask of small size was used, 4 cm of water pressure were applied to the circuit, and the lights were extinguished. 7 hours and 58 minutes of data were reviewed. There were 325 minutes of sleep identified. Sleep latency was normal at 14 minutes. REM latency was delayed at 211 minutes. Sleep architecture improved with pressure therapy. There were three REM cycles noted later in the study. Overall sleep efficiency was 69.3%. The electrocardiogram showed a sinus rhythm with an average heart rate of 60 beats per minute; rate range 52 to 76. EEG showed essentially normal waveforms for wake and sleep. Respiratory events were fully palliated with CPAP at a pressure of 9 and remaining measures of sleep physiology were fairly normal with some EMG activity. Limb movement arousal index only 5.4. IMPRESSION: Obstructive sleep apnea syndrome (G47.33). RECOMMENDATION: Nightly use of pressure therapy 9 cm of water.
== END ==
LOC: M SLEEP 20:00
PROVIDERS: ATTEND Internal Medicine Pulmonary Disease
DX: G47.33 Obstructive sleep apnea (adult) (pediatric) (principal)

== ENCOUNTER → 2020-10-31 | Outpatient (CLI) | payer MEDICARE ==
[2020-10-31 14:18] LABS: LITHIUM LEVEL 0.2 MEQ/L (0.60-1.20); VALPROIC ACID (DEPAKOTE) 78.8 UG/ML (50.0-100.0)
== END ==
LOC: M PLALAB 10:20
PROVIDERS: ATTEND Psychiatry & Neurology Psychiatry
DX: Z79.899 Other long term (current) drug therapy (principal)

== ENCOUNTER → 2021-04-10 | Outpatient (CLI) | payer MEDICARE | LOC: M WHC 13:52 | PROVIDERS: ATTEND Physician Assistant Medical | DX: Z12.31 Encounter for screening mammogram for malignant neoplasm of breast (principal) ==

== ENCOUNTER → 2021-06-05 | Outpatient (CLI) | payer MEDICARE ==
[2021-06-05 17:13] LABS: LITHIUM LEVEL 0.25 MEQ/L (0.60-1.20); VALPROIC ACID (DEPAKOTE) 80.1 UG/ML (50.0-100.0)
== END ==
LOC: M PLALAB 09:11
PROVIDERS: ATTEND Psychiatry & Neurology Psychiatry
DX: Z79.899 Other long term (current) drug therapy (principal)

== ENCOUNTER 2021-07-02 21:53 | Emergency (ER) | payer MEDICARE ==
[~2021-07-02] VITALS: Ht 165.1 cm; Wt 77.3 kg
[2021-07-03] MEDS ORDERED: ONDANSETRON 4MG/2ML VIAL IV ONE (01:35)
[2021-07-03] MEDS ORDERED: ACETAMINOPHEN 500 MG TAB PO ONE (01:35)
[2021-07-03 02:16] LABS: HEMATOCRIT 36.7 % (36.0-47.0); HEMOGLOBIN 11.9 g/dl (12.0-15.5); MEAN CORPUSCULAR HEMOGLOBIN 29.2 pg (27.0-33.0); MEAN CORPUSCULAR HGB CONC 32.4 g/dl (32.0-36.5); MEAN CORPUSCULAR VOLUME 90.2 fl (80.0-96.0); PLATELET COUNT, AUTOMATED 227 10^3/uL (150-450); RED BLOOD COUNT 4.07 10^6/uL (4.00-5.40)
[2021-07-03 02:56] LABS: CALCIUM LEVEL 9.1 MG/DL (8.8-10.2); CREATININE FOR GFR 2.65 MG/DL (0.55-1.30); MAGNESIUM LEVEL 2.5 MG/DL (1.8-2.4); POTASSIUM SERUM 4.3 MEQ/L (3.5-5.1)
[2021-07-03] MEDS ORDERED: ONDANSETRON 4MG ORAL DISINTEGRATING TAB PO ONE (03:00)
[2021-07-03] MEDS ORDERED: BENZ200C70 PO (03:34)
[2021-07-03] MEDS ORDERED: VENTAER INH (03:34)
[2021-07-03 04:03] LABS: LITHIUM LEVEL 0.28 MEQ/L (0.60-1.20)
[2021-07-03 04:08] VITALS: BP 133/72
== END 2021-07-03 04:10 | disposition home or self-care (01) ==
LOC: M ED 21:53
DX: U07.1 COVID-19 (principal)
CPT/HCPCS: 71045; 80048; 80164; 80178; 83605; 83735; 85027; 87040; 87486; 87581; 87633; 87798; 96374; 99284; J2405

== ENCOUNTER → 2022-10-15 | Outpatient (CLI) | payer MEDICARE ==
[~2022-10-15] MED LIST changes: +BENZ200C70 PO; +VENTAER INH
== END ==
LOC: M WHC 07:20
PROVIDERS: ATTEND Physician Assistant Medical
DX: Z12.31 Encounter for screening mammogram for malignant neoplasm of breast (principal); M85.80 Other specified disorders of bone density and structure, unspecified site

== ENCOUNTER → 2023-08-05 | Outpatient (CLI) | payer MEDICARE | LOC: M WHC 12:05 | PROVIDERS: ATTEND Internal Medicine Nephrology | DX: N18.4 Chronic kidney disease, stage 4 (severe) (principal) ==

== ENCOUNTER 2023-09-02 22:20 | Observation (INO) | payer MEDICARE ==
[~2023-09-02] VITALS: Ht 165.1 cm; Wt 71.5 kg
[2023-09-02 23:17] LABS: BASO % 0.4 % (0.0-1.0); EOS % 0.6 % (0.0-3.0); HEMATOCRIT 38.4 % (36.0-47.0); HEMOGLOBIN 12.4 g/dl (12.0-15.5); LYMPH # 1.4 10^3/uL (1.5-5.0); MEAN CORPUSCULAR HEMOGLOBIN 29.9 pg (27.0-33.0); MEAN CORPUSCULAR HGB CONC 32.3 g/dl (32.0-36.5); MEAN CORPUSCULAR VOLUME 92.5 fl (80.0-96.0); MONO # 1.3 10^3/uL (0.0-0.8); MONO % 18.5 % (2.0-8.0); NEUTROPHILS # 4.1 10^3/uL (1.5-8.5); NEUTROPHILS % 60.2 % (36.0-66.0); PLATELET COUNT, AUTOMATED 215 10^3/uL (150-450); RED BLOOD COUNT 4.15 10^6/uL (4.00-5.40); WHITE BLOOD COUNT 6.8 10^3/uL (4.0-10.0)
[2023-09-02 23:18] LABS: VENOUS BASE EXCESS -4.9 (-2.0-2.0); VENOUS HCO3 20.4 MMOL/L (23.0-27.0); VENOUS O2 SATURATION 72.4 % (60.0-80.0); VENOUS PARTIAL PRESSURE CO2 38.7 mmHg (38.0-50.0); VENOUS PARTIAL PRESSURE O2 38.2 mmHg (30.0-50.0); VENOUS STANDARD HCO3 19.9 MMOL/L; VENOUS TOTAL CO2 21.6 MMOL/L (24.0-28.0)
[2023-09-02] MEDS: NS 1,000 ML IV ONE (23:39)
[2023-09-02 23:40] LABS: CK-MB VALUE MASS < 1.0 NG/ML (<3.6)
[2023-09-02 23:41] LABS: ETHYL ALCOHOL (ETHANOL) < 0.003 % (0.000-0.010); VALPROIC ACID (DEPAKOTE) 70.5 UG/ML (50.0-100.0)
[2023-09-02 23:43] LABS: ALBUMIN 3.9 G/DL (3.2-5.2); ALKALINE PHOSPHATASE 50 U/L (46-116); ALT/SGPT < 9 U/L (7.0-40); AST/SGOT < 8 U/L (<34); BILIRUBIN,DIRECT 0.2 MG/DL (<0.4); BILIRUBIN,TOTAL 0.6 MG/DL (0.3-1.2); BLOOD UREA NITROGEN 26 MG/DL (9-23); CALCIUM LEVEL 10.2 MG/DL (8.3-10.6); CARBON DIOXIDE LEVEL 22 MMOL/L (20-31); CHLORIDE LEVEL 111 MMOL/L (98-107); CPK CREATINE PHOSPHOKINASE 54 U/L (34-145); CREATININE FOR GFR 3.36 MG/DL (0.55-1.30); GLOMERULAR FILTRATION RATE 14.3 (>39); GLUCOSE, FASTING 144 MG/DL (74-106); MB/CK RELATIVE INDEX 1.85 (< OR =4); POTASSIUM SERUM 4.5 MMOL/L (3.5-5.1); SALICYLATE LEVEL < 3.0 MG/DL (<30); SODIUM LEVEL 140 MMOL/L (136-145); TOTAL PROTEIN 7.2 G/DL (5.7-8.2)
[2023-09-02 23:44] LABS: THYROID STIMULATING HORMONE 1.201 uIU/ML (0.55-4.78)
[2023-09-03 00:29] LABS: LITHIUM LEVEL 0.26 MMOL/L (1.0-1.20)
[2023-09-03 01:04] LABS: OSMOLALITY SERUM 312 MOSM/KG (280-301)
[2023-09-03 02:04] LABS: AMPHETAMINES LEVEL URINE NEGATIVE (NEGATIVE); BARBITURATES URINE NEGATIVE (NEGATIVE); BENZODIAZEPINES URINE NEGATIVE (NEGATIVE); CANNABINOIDS URINE NEGATIVE (NEGATIVE); COCAINE METABOLITE URINE NEGATIVE (NEGATIVE); METHADONE URINE NEGATIVE (NEGATIVE); OPIATES URINE NEGATIVE (NEGATIVE); PHENCYCLIDINE URINE NEGATIVE (NEGATIVE)
[2023-09-03] MEDS ORDERED: VESI10TA2 PO (04:56)
[2023-09-03] MEDS ORDERED: ROSU5TAB40 PO (04:56)
[2023-09-03] MEDS ORDERED: DIVA250T67 PO ×2 (04:56)
[2023-09-03] MEDS ORDERED: HOME MED LIST COMPLETE! XX SCH (05:00)
[2023-09-03 05:25] LABS: CK-MB VALUE MASS < 1.0 NG/ML (<3.6)
[2023-09-03 05:26] LABS: CPK CREATINE PHOSPHOKINASE 42 U/L (34-145); MB/CK RELATIVE INDEX 2.38 (< OR =4)
[2023-09-03 05:39] LABS: CHOLESTEROL RISK RATIO 2.75 (<5); HDL CHOLESTEROL 51.9 MG/DL (>40); LDL CHOLESTEROL 70.9 MG/DL (<100); NON-HDL-C 91.1 MG/DL
[2023-09-03 05:55] LABS: HEMOGLOBIN A1c 5.7 % (4.0-6.0)
[2023-09-03] MEDS: HEPARIN SOD (PORCINE) 5000UNITS/ML 1ML VIAL/SYRINGE SC SCH (06:28)
[2023-09-03 08:14] LABS: CALCIUM LEVEL 9.1 MG/DL (8.3-10.6); CREATININE FOR GFR 3.09 MG/DL (0.55-1.30); GLOMERULAR FILTRATION RATE 15.8 (>39); POTASSIUM SERUM 4.3 MMOL/L (3.5-5.1)
[2023-09-03] MEDS: ASPIRIN 81MG ENTERIC TABLET PO SCH (08:42)
[2023-09-03] MEDS: DIVALPROEX 250MG TAB PO SCH (08:42)
[2023-09-03 12:00] VITALS: BP_SYST 139; BP_SYST 141; BP_DIAS 60; BP_DIAS 71; TEMP 97.5; TEMP 97.9; O2SAT 100; O2SAT 95
[2023-09-03] MEDS: CLOPIDOGREL 75 MG TAB PO SCH (12:12)
[2023-09-03 16:00] VITALS: BP 110/78; TEMP 97.3; O2SAT 99
[2023-09-03 20:00] VITALS: BP 112/71; TEMP 97; O2SAT 95
[2023-09-03] MEDS ORDERED: ROSUVASTATIN 10 MG TAB (CRESTOR) PO SCH (21:00)
[2023-09-03 21:09] VITALS: BP 112/77; TEMP 97.5; O2SAT 97
[2023-09-03] MEDS: SOLIFENACIN 5 MG TAB PO SCH (22:50)
[2023-09-03] MEDS: DIVALPROEX 500 MG TAB PO SCH (22:50)
[2023-09-03] MEDS: CALCITRIOL 0.25 MCG CAP (S0169) PO SCH (22:51)
[2023-09-03] MEDS: ROSUVASTATIN 10 MG TAB (CRESTOR) PO SCH (22:51)
[2023-09-03] MEDS: LITHIUM CARBONATE 150 MG CAP PO SCH (22:52)
[2023-09-04] VITALS: BP 109/69; TEMP 97.2; O2SAT 94
[2023-09-04 04:00] VITALS: BP 114/64; TEMP 97.4; O2SAT 96
[2023-09-04 04:15] VITALS: BP 116/71; TEMP 97.5; O2SAT 96
[2023-09-04 08:00] VITALS: BP 115/70; TEMP 97.5; O2SAT 97
[2023-09-04] MEDS ORDERED: CLOP75TA2 PO (10:08)
[2023-09-04] MEDS ORDERED: ROSU20TA61 PO (10:08)
[2023-09-04] MEDS ORDERED: ASPI81TAEC PO (10:08)
== END 2023-09-04 11:43 | disposition home or self-care (01) ==
LOC: M ED 22:20 → M ED INP 09-03 04:30 → M MSPAV 09-03 11:53
PROVIDERS: ADMIT Internal Medicine; ATTEND Student in an Organized Health Care Education/Training Program
DX: G45.9 Transient cerebral ischemic attack, unspecified (principal); G93.41 Metabolic encephalopathy; N18.4 Chronic kidney disease, stage 4 (severe); E87.21 Acute metabolic acidosis; R73.03 Prediabetes; I50.30 Unspecified diastolic (congestive) heart failure; G47.33 Obstructive sleep apnea (adult) (pediatric); E78.5 Hyperlipidemia, unspecified; Z79.82 Long term (current) use of aspirin; Z79.899 Other long term (current) drug therapy
CPT/HCPCS: 36415; 70450; 70544; 70547; 70551; 71045; 80048; 80061; 80076; 80143; 80164; 80178; 80307; 81002; 82077; 82140; 82550; 82553; 82803; 83036; 83605; 83930; 84300; 84443; 84484; 85025; 87040; 92610; 93005; 93041; 94760; 96372; 96374; 97161; 97162; 97165; 97530; 99285; G0378

== ENCOUNTER → 2023-10-01 | Outpatient (CLI) | payer MEDICARE ==
[~2023-10-01] MED LIST changes: +ASPI81TAEC PO; +CLOP75TA2 PO; +DIVA250T67 PO; +GASTROGRAFIN SOLUTION 30ML As Ordered ONE; +ROSU20TA61 PO; +ROSU5TAB40 PO; +VESI10TA2 PO
== END ==
LOC: M RAD 09:05
PROVIDERS: ATTEND Physician Assistant Medical
DX: N88.8 Other specified noninflammatory disorders of cervix uteri (principal); N28.1 Cyst of kidney, acquired; R10.32 Left lower quadrant pain; Z68.28 Body mass index [BMI] 28.0-28.9, adult
CPT/HCPCS: 74176; Q9963

== ENCOUNTER → 2023-11-11 | Outpatient (CLI) | payer MEDICARE ==
[~2023-11-11] MED LIST changes: -GASTROGRAFIN SOLUTION 30ML As Ordered ONE
== END ==
LOC: M RAD 09:53
PROVIDERS: ATTEND Physician Assistant Medical
DX: N28.1 Cyst of kidney, acquired (principal); E27.9 Disorder of adrenal gland, unspecified

== ENCOUNTER → 2024-03-08 | Outpatient (CLI) | payer MEDICARE ==
[~2024-03-08] MED LIST changes: -ROSU20TA61 PO; +ROSU20TA86 PO; -ROSU5TAB40 PO; +ROSU5TAB49 PO
== END ==
LOC: M WUC 10:15
PROVIDERS: ATTEND Physician Assistant Medical
DX: M54.50 Low back pain, unspecified (principal); M47.896 Other spondylosis, lumbar region

== ENCOUNTER → 2024-03-13 | Outpatient (CLI) | payer MEDICARE | LOC: M RAD 12:13 | PROVIDERS: ATTEND Physician Assistant | DX: M25.551 Pain in right hip (principal); S32.591A Other specified fracture of right pubis, initial encounter for closed fracture; S32.511A Fracture of superior rim of right pubis, initial encounter for closed fracture; S32.19XA Other fracture of sacrum, initial encounter for closed fracture; M16.0 Bilateral primary osteoarthritis of hip; N83.291 Other ovarian cyst, right side ==

== ENCOUNTER → 2024-03-19 | Outpatient (CLI) | payer MEDICARE | LOC: M WHC 14:25 | PROVIDERS: ATTEND Nurse Practitioner Adult Health | DX: N83.201 Unspecified ovarian cyst, right side (principal); N85.00 Endometrial hyperplasia, unspecified ==

== ENCOUNTER 2024-04-23 10:20 | Day surgery (SDC) | payer MEDICARE ==
[~2024-04-23] VITALS: Ht 165.1 cm; Wt 67.6 kg
[~2024-04-23 10:20] MED LIST changes: +ACETAMINOPHEN 1000MG/100ML IV BAG As Ordered ONE; +LIDOCAINE 2% 100MG/5ML SDV (FOR ANES.) As Ordered ONE; +ONDANSETRON 4MG 2ML VIAL As Ordered ONE; +fentaNYL 100 MCG/2 ML INJECTION As Ordered ONE; +propofoL 200 MG/20 ML VIAL As Ordered ONE
[2024-04-23 10:54] LABS: HEMATOCRIT 39.7 % (36.0-47.0); HEMOGLOBIN 12.5 g/dl (12.0-15.5); MEAN CORPUSCULAR HGB CONC 31.5 g/dl (32.0-36.5); MEAN CORPUSCULAR VOLUME 92.1 fl (80.0-96.0); PLATELET COUNT, AUTOMATED 286 10^3/uL (150-450); RED BLOOD COUNT 4.31 10^6/uL (4.00-5.40); WHITE BLOOD COUNT 6.7 10^3/uL (4.0-10.0)
[2024-04-23] MEDS: LR 1,000 ML IV SCH (11:17)
[2024-04-23] MEDS: SILVER NITRATE APPLICATOR (1 = QTY 10) As Ordered ONE (13:37)
[2024-04-23] MEDS ORDERED: ePHEDrine SULFATE 25 MG/5 ML(5MG/ML) SYRINGE As Ordered ONE (14:06)
[2024-04-23] MEDS ORDERED: ONDANSETRON 4MG 2ML VIAL IV PRN (15:00)
[2024-04-23] MEDS ORDERED: fentaNYL 100 MCG/2 ML INJECTION IV PRN (15:00)
[2024-04-23] MEDS ORDERED: oxyCODONE 5MG TAB PO PRN (15:00)
[2024-04-23] MEDS ORDERED: MORPHINE 2 MG/ML 1ML VIAL IV PRN (15:00)
[2024-04-23 16:15] VITALS: BP 120/65; TEMP 98; O2SAT 95
== END 2024-04-23 16:51 | disposition home or self-care (01) ==
LOC: M SDC 10:20
PROVIDERS: ATTEND Obstetrics & Gynecology
DX: C54.1 Malignant neoplasm of endometrium (principal); E78.5 Hyperlipidemia, unspecified; K44.9 Diaphragmatic hernia without obstruction or gangrene; K21.9 Gastro-esophageal reflux disease without esophagitis; F31.9 Bipolar disorder, unspecified; G47.30 Sleep apnea, unspecified; Z79.899 Other long term (current) drug therapy; Z79.82 Long term (current) use of aspirin
CPT/HCPCS: 36415; 58558; 85027; 86850; 86900; 86901; 88305; J0131; J1100; J2405; J3010

== ENCOUNTER → 2024-04-28 | Outpatient (REF) | payer MEDICARE ==
[~2024-04-28] MED LIST changes: -ACETAMINOPHEN 1000MG/100ML IV BAG As Ordered ONE; -LIDOCAINE 2% 100MG/5ML SDV (FOR ANES.) As Ordered ONE; -ONDANSETRON 4MG 2ML VIAL As Ordered ONE; -fentaNYL 100 MCG/2 ML INJECTION As Ordered ONE; -propofoL 200 MG/20 ML VIAL As Ordered ONE
== END ==
LOC: M LAB REF 17:19
PROVIDERS: ATTEND Internal Medicine Nephrology
DX: N39.0 Urinary tract infection, site not specified (principal)

== ENCOUNTER → 2024-06-17 | Outpatient (CLI) | payer MEDICARE | LOC: M WHC 07:36 | PROVIDERS: ATTEND Physician Assistant Medical | DX: Z12.31 Encounter for screening mammogram for malignant neoplasm of breast (principal) ==

== ENCOUNTER → 2024-09-02 | Outpatient (CLI) | payer MEDICARE ==
[~2024-09-02] MED LIST changes: -DEPA250T32 PO; +DIVA-65 PO
[2024-09-02 14:00] LABS: BASO # 0.0 10^3/uL (0.0-0.2); BASO % 0.5 % (0.0-1.0); EOS # 0.1 10^3/uL (0.0-0.5); EOS % 1.5 % (0.0-3.0); LYMPH # 2.1 10^3/uL (1.5-5.0); LYMPH % 51.9 % (24.0-44.0); MONO # 0.3 10^3/uL (0.0-0.8); MONO % 8.3 % (2.0-8.0); NEUTROPHILS # 1.5 10^3/uL (1.5-8.5); NEUTROPHILS % 37.3 % (36.0-66.0); PLATELET COUNT, AUTOMATED 195 10^3/uL (150-450)
[2024-09-02 14:33] LABS: ALT/SGPT 16.0 U/L (7.0-40); AST/SGOT 9.0 U/L (<34); CALCIUM LEVEL 9.0 MG/DL (8.3-10.6); CARBON DIOXIDE LEVEL 24.0 MMOL/L (20-31); CHLORIDE LEVEL 105.0 MMOL/L (98-107); CREATININE FOR GFR 2.54 MG/DL (0.55-1.30); GLOMERULAR FILTRATION RATE 19.4 (>39); POTASSIUM SERUM 5.1 MMOL/L (3.5-5.1); SODIUM LEVEL 138.0 MMOL/L (136-145)
== END ==
LOC: M PLALAB 12:07
PROVIDERS: ATTEND Nurse Practitioner
DX: C54.1 Malignant neoplasm of endometrium (principal); Z79.899 Other long term (current) drug therapy

== ENCOUNTER → 2024-09-09 | Outpatient (CLI) | payer MEDICARE ==
[2024-09-09 18:01] LABS: BASO # 0.0 10^3/uL (0.0-0.2); BASO % 0.5 % (0.0-1.0); EOS # 0.1 10^3/uL (0.0-0.5); EOS % 1.1 % (0.0-3.0); LYMPH # 2.3 10^3/uL (1.5-5.0); LYMPH % 42.4 % (24.0-44.0); MONO # 0.9 10^3/uL (0.0-0.8); MONO % 15.7 % (2.0-8.0); NEUTROPHILS # 2.2 10^3/uL (1.5-8.5); NEUTROPHILS % 39.4 % (36.0-66.0); PLATELET COUNT, AUTOMATED 212 10^3/uL (150-450)
[2024-09-09 18:19] LABS: ALT/SGPT 13.0 U/L (7.0-40); AST/SGOT 8.0 U/L (<34); CA 125 5.0 U/ML (<35); CALCIUM LEVEL 10.3 MG/DL (8.3-10.6); CARBON DIOXIDE LEVEL 26.0 MMOL/L (20-31); CHLORIDE LEVEL 107.0 MMOL/L (98-107); CREATININE FOR GFR 2.75 MG/DL (0.55-1.30); FREE T4 1.31 NG/DL (0.89-1.76); GLOMERULAR FILTRATION RATE 17.7 (>39); MAGNESIUM LEVEL 2.2 MG/DL (1.8-2.4); POTASSIUM SERUM 4.7 MMOL/L (3.5-5.1); SODIUM LEVEL 144.0 MMOL/L (136-145)
== END ==
LOC: M PLALAB 14:25
PROVIDERS: ATTEND Nurse Practitioner
DX: C54.1 Malignant neoplasm of endometrium (principal); Z79.899 Other long term (current) drug therapy

== ENCOUNTER → 2024-09-23 | Outpatient (CLI) | payer MEDICARE ==
[2024-09-23 17:10] LABS: BASO # 0.0 10^3/uL (0.0-0.2); BASO % 0.3 % (0.0-1.0); EOS # 0.0 10^3/uL (0.0-0.5); EOS % 0.9 % (0.0-3.0); LYMPH # 2.0 10^3/uL (1.5-5.0); LYMPH % 60.1 % (24.0-44.0); MONO # 0.3 10^3/uL (0.0-0.8); MONO % 9.2 % (2.0-8.0); NEUTROPHILS # 1.0 10^3/uL (1.5-8.5); NEUTROPHILS % 29.2 % (36.0-66.0); PLATELET COUNT, AUTOMATED 190 10^3/uL (150-450)
[2024-09-23 17:15] LABS: ALT/SGPT 17.0 U/L (7.0-40); AST/SGOT 9.0 U/L (<34); CALCIUM LEVEL 9.5 MG/DL (8.3-10.6); CARBON DIOXIDE LEVEL 23.0 MMOL/L (20-31); CHLORIDE LEVEL 111.0 MMOL/L (98-107); CREATININE FOR GFR 2.31 MG/DL (0.55-1.30); GLOMERULAR FILTRATION RATE 21.8 (>39); POTASSIUM SERUM 5.1 MMOL/L (3.5-5.1); SODIUM LEVEL 145.0 MMOL/L (136-145)
== END ==
LOC: M PLALAB 14:32
PROVIDERS: ATTEND Nurse Practitioner
DX: C54.1 Malignant neoplasm of endometrium (principal); Z79.899 Other long term (current) drug therapy; N18.4 Chronic kidney disease, stage 4 (severe); D64.81 Anemia due to antineoplastic chemotherapy; T45.1X5A Adverse effect of antineoplastic and immunosuppressive drugs, initial encounter

== ENCOUNTER → 2024-09-30 | Outpatient (CLI) | payer MEDICARE ==
[2024-09-30 15:49] LABS: BASO # 0.0 10^3/uL (0.0-0.2); BASO % 0.3 % (0.0-1.0); EOS # 0.0 10^3/uL (0.0-0.5); EOS % 0.8 % (0.0-3.0); LYMPH # 1.7 10^3/uL (1.5-5.0); LYMPH % 45.6 % (24.0-44.0); MONO # 0.5 10^3/uL (0.0-0.8); MONO % 14.4 % (2.0-8.0); NEUTROPHILS # 1.4 10^3/uL (1.5-8.5); NEUTROPHILS % 38.3 % (36.0-66.0); PLATELET COUNT, AUTOMATED 275 10^3/uL (150-450)
[2024-09-30 16:13] LABS: ALT/SGPT 13 U/L (7.0-40); AST/SGOT < 8 U/L (<34); CALCIUM LEVEL 10.1 MG/DL (8.3-10.6); CARBON DIOXIDE LEVEL 23 MMOL/L (20-31); CHLORIDE LEVEL 107 MMOL/L (98-107); CREATININE FOR GFR 2.79 MG/DL (0.55-1.30); FREE T4 1.37 NG/DL (0.89-1.76); GLOMERULAR FILTRATION RATE 17.4 (>39); MAGNESIUM LEVEL 2.2 MG/DL (1.8-2.4); POTASSIUM SERUM 4.6 MMOL/L (3.5-5.1); SODIUM LEVEL 142 MMOL/L (136-145); TOTAL T3 127.8 NG/DL (60.0-181.0)
[2024-09-30 16:27] LABS: CA 125 5.0 U/ML (<35)
== END ==
LOC: M PLALAB 13:26
PROVIDERS: ATTEND Nurse Practitioner
DX: Z79.899 Other long term (current) drug therapy (principal); C54.1 Malignant neoplasm of endometrium; N18.4 Chronic kidney disease, stage 4 (severe)

== ENCOUNTER → 2024-10-01 | Outpatient (CLI) | payer MEDICARE ==
[2024-10-01 15:29] LABS: BASO # 0.0 10^3/uL (0.0-0.2); BASO % 0.5 % (0.0-1.0); EOS # 0.0 10^3/uL (0.0-0.5); EOS % 1.0 % (0.0-3.0); LYMPH # 1.5 10^3/uL (1.5-5.0); LYMPH % 39.4 % (24.0-44.0); MONO # 0.6 10^3/uL (0.0-0.8); MONO % 14.4 % (2.0-8.0); NEUTROPHILS # 1.7 10^3/uL (1.5-8.5); NEUTROPHILS % 44.2 % (36.0-66.0); PLATELET COUNT, AUTOMATED 261 10^3/uL (150-450)
== END ==
LOC: M PLALAB 12:03
PROVIDERS: ATTEND Nurse Practitioner
DX: Z79.899 Other long term (current) drug therapy (principal)

== ENCOUNTER → 2024-10-25 | Outpatient (CLI) | payer MEDICARE ==
[2024-10-25 10:09] LABS: BASO # 0.0 10^3/uL (0.0-0.2); BASO % 0.5 % (0.0-1.0); EOS # 0.1 10^3/uL (0.0-0.5); EOS % 0.9 % (0.0-3.0); LYMPH # 2.1 10^3/uL (1.5-5.0); LYMPH % 31.4 % (24.0-44.0); MONO # 1.0 10^3/uL (0.0-0.8); MONO % 14.6 % (2.0-8.0); NEUTROPHILS # 3.4 10^3/uL (1.5-8.5); NEUTROPHILS % 51.1 % (36.0-66.0); PLATELET COUNT, AUTOMATED 235 10^3/uL (150-450)
[2024-10-25 10:39] LABS: ALT/SGPT 9.0 U/L (7.0-40); AST/SGOT 11.0 U/L (<34); CALCIUM LEVEL 10.4 MG/DL (8.3-10.6); CARBON DIOXIDE LEVEL 24.0 MMOL/L (20-31); CHLORIDE LEVEL 110.0 MMOL/L (98-107); CREATININE FOR GFR 3.16 MG/DL (0.55-1.30); GLOMERULAR FILTRATION RATE 15.0 (>39); MAGNESIUM LEVEL 2.5 MG/DL (1.8-2.4); POTASSIUM SERUM 5.1 MMOL/L (3.5-5.1); SODIUM LEVEL 145.0 MMOL/L (136-145)
[2024-10-25 10:41] LABS: FREE T4 1.39 NG/DL (0.89-1.76); TOTAL T3 148.6 NG/DL (60.0-181.0)
[2024-10-25 10:57] LABS: CA 125 7.0 U/ML (<35)
== END ==
LOC: M LAB 08:58
PROVIDERS: ATTEND Nurse Practitioner
DX: Z79.899 Other long term (current) drug therapy (principal); C54.1 Malignant neoplasm of endometrium

== ENCOUNTER → 2024-11-15 | Outpatient (CLI) | payer MEDICARE ==
[2024-11-15 15:34] LABS: BASO # 0.0 10^3/uL (0.0-0.2); BASO % 0.5 % (0.0-1.0); EOS # 0.3 10^3/uL (0.0-0.5); EOS % 2.9 % (0.0-3.0); LYMPH # 2.1 10^3/uL (1.5-5.0); LYMPH % 23.4 % (24.0-44.0); MONO # 1.0 10^3/uL (0.0-0.8); MONO % 11.2 % (2.0-8.0); NEUTROPHILS # 5.4 10^3/uL (1.5-8.5); NEUTROPHILS % 61.1 % (36.0-66.0); PLATELET COUNT, AUTOMATED 274 10^3/uL (150-450)
[2024-11-15 15:49] LABS: ALT/SGPT 9.0 U/L (7.0-40); AST/SGOT 8.0 U/L (<34); CALCIUM LEVEL 9.5 MG/DL (8.3-10.6); CARBON DIOXIDE LEVEL 24.0 MMOL/L (20-31); CHLORIDE LEVEL 105.0 MMOL/L (98-107); CREATININE FOR GFR 3.07 MG/DL (0.55-1.30); GLOMERULAR FILTRATION RATE 15.5 (>39); POTASSIUM SERUM 4.9 MMOL/L (3.5-5.1); SODIUM LEVEL 135.0 MMOL/L (136-145)
[2024-11-15 15:51] LABS: FREE T4 1.65 NG/DL (0.89-1.76)
[2024-11-15 16:18] LABS: CA 125 16.0 U/ML (<35)
== END ==
LOC: M PLALAB 14:08
PROVIDERS: ATTEND Nurse Practitioner
DX: C54.1 Malignant neoplasm of endometrium (principal); Z79.899 Other long term (current) drug therapy

== ENCOUNTER 2024-11-21 22:03 | Inpatient (IN) | payer MEDICARE ==
[~2024-11-21] VITALS: Ht 160 cm; Wt 66.5 kg
[2024-11-21 22:53] LABS: APPEARANCE, URINE HAZY (CLEAR); BACTERIA, URINE AUTO 1+ (NEGATIVE); BILIRUBIN, URINE AUTO NEGATIVE (NEGATIVE); BLOOD, URINE BLOOD NEGATIVE (NEGATIVE); GLUCOSE, URINE (UA) AUTO NEGATIVE (NEGATIVE); KETONE, URINE AUTO NEGATIVE (NEGATIVE); LEUKOCYTE ESTERASE, URINE AUTO 3+ (NEGATIVE); NITRITE, URINE AUTO NEGATIVE (NEGATIVE); PROTEIN, URINE AUTO 1+ mg/dL (NEGATIVE); RBC, URINE AUTO 7 /HPF (0-3); SPECIFIC GRAVITY URINE AUTO 1.004 (1.002-1.035); SQUAMOUS EPITHELIAL CELL UR AU 3 /HPF (0-6); UROBILINOGEN, URINE AUTO 0.2 mg/dL (0.0-2.0); WBC, URINE AUTO TNTC /HPF (0-3)
[2024-11-22] VITALS (7 sets, daily range): BP systolic 103–115; BP diastolic 62–75; TEMP 97.5–97.9; O2SAT 95–99
[2024-11-22 00:19] LABS: PLATELET COUNT, AUTOMATED 271 10^3/uL (150-450)
[2024-11-22 00:33] LABS: ALT/SGPT < 9 U/L (7.0-40); AST/SGOT < 8 U/L (<34); CALCIUM LEVEL 9.4 MG/DL (8.3-10.6); CARBON DIOXIDE LEVEL 22 MMOL/L (20-31); CHLORIDE LEVEL 111 MMOL/L (98-107); CREATININE FOR GFR 2.99 MG/DL (0.55-1.30); GLOMERULAR FILTRATION RATE 16.0 (>39); POTASSIUM SERUM 4.9 MMOL/L (3.5-5.1); SODIUM LEVEL 143 MMOL/L (136-145)
[2024-11-22] MEDS: cefTRIAXone SOD 2 GM in DEXTROSE 5% (D5W) ADV/MINI-BAG 50 ML IV ONE (01:34)
[2024-11-22] MEDS ORDERED: ACETAMINOPHEN 325 MG TAB PO PRN (03:00)
[2024-11-22] MEDS ORDERED: ONDANSETRON 4MG 2ML VIAL IV PRN (03:00)
[2024-11-22] MEDS ORDERED: ROSU20TA86 PO (04:13)
[2024-11-22] MEDS ORDERED: DEXA2TA PO (04:13)
[2024-11-22] MEDS ORDERED: HOME MED LIST COMPLETE! XX SCH (04:15)
[2024-11-22] MEDS: NS (Normal Saline) 0.9% 1,000 ML IV SCH (04:20)
[2024-11-22] MEDS: HEPARIN SOD 5000 UNITS/ML 1 ML VIAL/SYRINGE SC SCH (08:04)
[2024-11-22] MEDS: DOCUSATE SODIUM 100 MG CAPSULE PO SCH (08:04)
[2024-11-22] MEDS ORDERED: POLYVINYL ALCOHOL OPHTH SOLN 15ML (LIQUITEARS) OU PRN (11:55)
[2024-11-22] MEDS: DIVALPROEX 250 MG TAB PO SCH ×2 (14:50→20:16)
[2024-11-22] MEDS: SOLIFENACIN 5 MG TAB PO SCH (20:16)
[2024-11-22] MEDS: LITHIUM CARBONATE 150 MG CAP PO SCH (20:16)
[2024-11-22] MEDS: cefTRIAXone SOD 1 GM in DEXTROSE 5% (D5W) ADV/MINI-BAG 50 ML IV SCH (20:17)
[2024-11-22] MEDS: ROSUVASTATIN 10 MG TAB PO SCH (20:17)
[2024-11-23 03:42] VITALS: BP 110/62; TEMP 97.2; O2SAT 96
[2024-11-23 06:50] LABS: PLATELET COUNT, AUTOMATED 216 10^3/uL (150-450)
[2024-11-23 07:11] LABS: VALPROIC ACID (DEPAKOTE) 64.6 UG/ML (50.0-100.0)
[2024-11-23 07:13] LABS: LITHIUM LEVEL 0.52 MMOL/L (1.0-1.20)
[2024-11-23 07:17] LABS: ALT/SGPT < 9 U/L (7.0-40); AST/SGOT < 8 U/L (<34); CALCIUM LEVEL 9.1 MG/DL (8.3-10.6); CARBON DIOXIDE LEVEL 20 MMOL/L (20-31); CHLORIDE LEVEL 112 MMOL/L (98-107); CREATININE FOR GFR 2.77 MG/DL (0.55-1.30); GLOMERULAR FILTRATION RATE 17.5 (>39); MAGNESIUM LEVEL 2.0 MG/DL (1.8-2.4); POTASSIUM SERUM 4.6 MMOL/L (3.5-5.1); SODIUM LEVEL 143 MMOL/L (136-145)
[2024-11-23 08:00] VITALS: BP 112/65; TEMP 97.9; O2SAT 99
[2024-11-23 08:39] VITALS: BP_SYST 114; BP_SYST 96; BP_SYST 97; BP_DIAS 58; BP_DIAS 67
[2024-11-23] MEDS: FLUZONE HIGH DOSE (65+) 0.5 ML SYRINGE (25-26) IM.IMMUN ONE (08:49)
[2024-11-23] MEDS ORDERED: COLA100C5 PO (11:58)
[2024-11-23] MEDS ORDERED: CEFD300CAP PO (11:58)
[2024-11-23 12:00] VITALS: BP 100/57; TEMP 97.9; O2SAT 99
[2024-11-23] MEDS ORDERED: CALC1CAP31 PO (12:00)
[2024-11-23] MEDS ORDERED: VESI10TA2 PO (12:00)
[2024-11-23] MEDS: CEFDINIR 300 MG CAP PO SCH (12:07)
[2024-11-23] MEDS ORDERED: CALCITRIOL 0.25 MCG CAP (S0169) PO SCH (21:00)
[2024-11-23] MEDS ORDERED: LITHIUM CARBONATE 150 MG CAP PO SCH (21:00)
[2024-11-23] MEDS ORDERED: CEFDINIR 300 MG CAP PO SCH (21:00)
== END 2024-11-23 13:38 | disposition home or self-care (01) | DRG 689 ==
LOC: M ED 22:03 → M ED INP 11-22 02:59 → M MSPAV 11-22 03:39
PROVIDERS: ADMIT Student in an Organized Health Care Education/Training Program; ATTEND Internal Medicine
DX: N39.0 Urinary tract infection, site not specified (principal); G93.41 Metabolic encephalopathy; N18.4 Chronic kidney disease, stage 4 (severe); E11.22 Type 2 diabetes mellitus with diabetic chronic kidney disease; E78.5 Hyperlipidemia, unspecified; K21.9 Gastro-esophageal reflux disease without esophagitis; F31.9 Bipolar disorder, unspecified; R32 Unspecified urinary incontinence; Z92.21 Personal history of antineoplastic chemotherapy; Z85.42 Personal history of malignant neoplasm of other parts of uterus; Z92.25 Personal history of immunosuppression therapy; M19.90 Unspecified osteoarthritis, unspecified site; I34.0 Nonrheumatic mitral (valve) insufficiency; D64.9 Anemia, unspecified; Z79.899 Other long term (current) drug therapy; R94.6 Abnormal results of thyroid function studies

== ENCOUNTER → 2024-12-01 | Outpatient (REF) | payer MEDICARE ==
[~2024-12-01] MED LIST changes: +CEFD300CAP PO; +COLA100C5 PO; +DEXA2TA PO
== END ==
LOC: M LAB REF 12:31
PROVIDERS: ATTEND Physician Assistant Medical
DX: N39.0 Urinary tract infection, site not specified (principal)

== ENCOUNTER → 2024-12-09 | Outpatient (CLI) | payer MEDICARE | LOC: M ONCR 10:00 | PROVIDERS: ATTEND General Practice | DX: C54.1 Malignant neoplasm of endometrium (principal); Z87.828 Personal history of other (healed) physical injury and trauma; Z79.899 Other long term (current) drug therapy; Z90.710 Acquired absence of both cervix and uterus; Z90.722 Acquired absence of ovaries, bilateral; Z90.79 Acquired absence of other genital organ(s); Z92.21 Personal history of antineoplastic chemotherapy; Z90.89 Acquired absence of other organs; Z80.3 Family history of malignant neoplasm of breast; Z80.8 Family history of malignant neoplasm of other organs or systems | CPT/HCPCS: 36415; 80053; 84439; 84443; 84480; 85025; 86304; G0463 ==

== ENCOUNTER → 2024-12-09 | Outpatient (CLI) | payer MEDICARE ==
[2024-12-09 14:51] LABS: BASO # 0.0 10^3/uL (0.0-0.2); BASO % 0.3 % (0.0-1.0); EOS # 0.3 10^3/uL (0.0-0.5); EOS % 1.9 % (0.0-3.0); LYMPH # 2.8 10^3/uL (1.5-5.0); LYMPH % 18.7 % (24.0-44.0); MONO # 1.5 10^3/uL (0.0-0.8); MONO % 10.0 % (2.0-8.0); NEUTROPHILS # 10.0 10^3/uL (1.5-8.5); NEUTROPHILS % 68.4 % (36.0-66.0); PLATELET COUNT, AUTOMATED 359 10^3/uL (150-450)
[2024-12-09 15:08] LABS: ALT/SGPT 41.0 U/L (7.0-40); AST/SGOT 24.0 U/L (<34); CA 125 20.0 U/ML (<35); CALCIUM LEVEL 10.2 MG/DL (8.3-10.6); CARBON DIOXIDE LEVEL 23.0 MMOL/L (20-31); CHLORIDE LEVEL 107.0 MMOL/L (98-107); CREATININE FOR GFR 3.6 MG/DL (0.55-1.30); FREE T4 0.99 NG/DL (0.89-1.76); GLOMERULAR FILTRATION RATE 12.8 (>39); POTASSIUM SERUM 5.4 MMOL/L (3.5-5.1); SODIUM LEVEL 142.0 MMOL/L (136-145); TOTAL T3 75.5 NG/DL (60.0-181.0)
== END ==
LOC: M PLALAB 09:20
PROVIDERS: ATTEND Nurse Practitioner
DX: C54.1 Malignant neoplasm of endometrium (principal); Z79.899 Other long term (current) drug therapy

== ENCOUNTER → 2024-12-10 | Outpatient (CLI) | payer MEDICARE ==
[~2024-12-10] MED LIST changes: +ISOVUE-370 76% 100 ML VIAL As Ordered ONE
== END ==
LOC: M RAD 08:47
PROVIDERS: ATTEND Radiology Radiation Oncology
DX: C54.1 Malignant neoplasm of endometrium (principal)

== ENCOUNTER 2024-12-15 14:55 | Inpatient (IN) | payer MEDICARE ==
[~2024-12-15] VITALS: Ht 165.1 cm; Wt 62.1 kg
[2024-12-15] MEDS ORDERED: SYST1SOL OU (16:43)
[2024-12-15] MEDS ORDERED: HOME MED LIST COMPLETE! XX SCH (17:20)
[2024-12-15 18:16] LABS: VALPROIC ACID (DEPAKOTE) 87.5 UG/ML (50.0-100.0)
[2024-12-15 18:17] LABS: LITHIUM LEVEL 0.61 MMOL/L (1.0-1.20)
[2024-12-15] MEDS: NS 500 ML IV ONE (18:30)
[2024-12-15 18:33] LABS: KETONE, URINE MANUAL REFLEX NEGATIVE (NEGATIVE); NITRITE, URINE MANUAL RFX NEGATIVE (NEGATIVE); PROTEIN, URINE MANUAL REFLEX TRACE mg/dL (NEGATIVE); SP GRAVITY,URINE MANUAL REFLEX 1.010 (1.002-1.035); UROBILINOGEN, UA MANUAL REFLEX NORMAL (NORMAL)
[2024-12-15 18:51] LABS: RBC, URINE MAN REFLEX NONE SEEN /hpf (0-3); SQUAMOUS EPITHELIAL URINE RFX SMALL AMOUNT /hpf (SMALL AMT)
[2024-12-15 18:52] LABS: TRANSITIONAL EPI, URINE RFX SMALL AMOUNT /hpf
[2024-12-15 18:53] LABS: HYALINE CAST, URINE RFX NONE SEEN /lpf (0-1); MICROSCOPIC EXAM RFX PERFORMED
[2024-12-15 21:20] LABS: ALT/SGPT 23.0 U/L (7.0-40); AST/SGOT 21.0 U/L (<34); CALCIUM LEVEL 9.6 MG/DL (8.3-10.6); CARBON DIOXIDE LEVEL 22.0 MMOL/L (20-31); CHLORIDE LEVEL 107.0 MMOL/L (98-107); CREATININE FOR GFR 3.43 MG/DL (0.55-1.30); GLOMERULAR FILTRATION RATE 13.6 (>39); POTASSIUM SERUM 5.0 MMOL/L (3.5-5.1); SODIUM LEVEL 140.0 MMOL/L (136-145)
[2024-12-15] MEDS: ROSUVASTATIN 10 MG TAB PO SCH (21:47)
[2024-12-15] MEDS: LITHIUM CARBONATE 150 MG CAP PO SCH (21:48)
[2024-12-15] MEDS: POLYVINYL ALCOHOL OPHTH SOLN 15ML (LIQUITEARS) OU SCH (21:48)
[2024-12-15] MEDS: SOLIFENACIN 5 MG TAB PO SCH (21:48)
[2024-12-15] MEDS: DIVALPROEX 250 MG TAB PO SCH (21:48)
[2024-12-15 23:46] VITALS: BP 112/58; TEMP 97.5; O2SAT 100
[2024-12-16] MEDS: ACETAMINOPHEN 325 MG TAB PO PRN (04:13)
[2024-12-16 05:33] VITALS: BP 109/56; TEMP 97.2; O2SAT 95
[2024-12-16 07:32] LABS: PLATELET COUNT, AUTOMATED 261 10^3/uL (150-450)
[2024-12-16 07:40] LABS: CALCIUM LEVEL 9.2 MG/DL (8.3-10.6); CARBON DIOXIDE LEVEL 23.0 MMOL/L (20-31); CHLORIDE LEVEL 109.0 MMOL/L (98-107); CREATININE FOR GFR 3.44 MG/DL (0.55-1.30); GLOMERULAR FILTRATION RATE 13.5 (>39); POTASSIUM SERUM 4.8 MMOL/L (3.5-5.1); SODIUM LEVEL 141.0 MMOL/L (136-145)
[2024-12-16] MEDS: DIVALPROEX 250 MG TAB PO SCH (09:08)
[2024-12-16] MEDS: HEPARIN SOD 5000 UNITS/ML 1 ML VIAL/SYRINGE SC SCH (09:09)
[2024-12-16 10:00] VITALS: BP 107/56; TEMP 97.2
[2024-12-16] MEDS ORDERED: NS (Normal Saline) 0.9% 1,000 ML IV ONE (13:20)
[2024-12-16 14:00] VITALS: BP 104/57; TEMP 97.3
[2024-12-16 14:50] LABS: IRON (FE) 26.0 UG/DL (50-170); PERCENT SATURATION 11.5 % (13.2-45.0)
[2024-12-16 14:55] LABS: VITAMIN B12 LEVEL 768.0 PG/ML (211-911)
[2024-12-16] MEDS ORDERED: predniSONE 20 MG TAB PO ONE (15:55)
[2024-12-16] MEDS: NS (Normal Saline) 0.9% 1,000 ML IV SCH (17:25)
[2024-12-16 19:57] VITALS: BP 98/49; TEMP 97.2; O2SAT 98
[2024-12-16] MEDS: CALCITRIOL 0.25 MCG CAP (S0169) PO SCH (20:48)
[2024-12-17 05:25] VITALS: BP 113/62; TEMP 97.7; O2SAT 96
[2024-12-17 06:41] LABS: BASO # 0.0 10^3/uL (0.0-0.2); BASO % 0.2 % (0.0-1.0); EOS # 0.1 10^3/uL (0.0-0.5); EOS % 0.7 % (0.0-3.0); LYMPH # 1.8 10^3/uL (1.5-5.0); LYMPH % 19.7 % (24.0-44.0); MONO # 0.8 10^3/uL (0.0-0.8); MONO % 8.9 % (2.0-8.0); NEUTROPHILS # 6.2 10^3/uL (1.5-8.5); NEUTROPHILS % 70.1 % (36.0-66.0); PLATELET COUNT, AUTOMATED 259 10^3/uL (150-450)
[2024-12-17 07:04] LABS: CALCIUM LEVEL 9.0 MG/DL (8.3-10.6); CARBON DIOXIDE LEVEL 21.0 MMOL/L (20-31); CHLORIDE LEVEL 113.0 MMOL/L (98-107); CREATININE FOR GFR 3.17 MG/DL (0.55-1.30); GLOMERULAR FILTRATION RATE 14.9 (>39); POTASSIUM SERUM 4.7 MMOL/L (3.5-5.1); SODIUM LEVEL 145.0 MMOL/L (136-145)
[2024-12-17 07:13] LABS: CORTISOL AM 13.7 UG/DL (4.3-22.4)
[2024-12-17] MEDS ORDERED: predniSONE 20 MG TAB PO SCH (09:00)
[2024-12-17 14:00] VITALS: BP 110/73; TEMP 97.7; O2SAT 98
[2024-12-17] MEDS: FERRIC CARBOXYMALTOSE INJ 750 MG, VIAL MATE ADAPTER 1 EACH in NS 100 ML IV ONE (16:29)
[2024-12-17 19:37] VITALS: BP 101/59; TEMP 97.9; O2SAT 98
[2024-12-18] VITALS (7 sets, daily range): BP systolic 101–114; BP diastolic 59–64; TEMP 97.3–97.9; O2SAT 95–100
[2024-12-18 08:07] LABS: BASO # 0.0 10^3/uL (0.0-0.2); BASO % 0.3 % (0.0-1.0); EOS # 0.1 10^3/uL (0.0-0.5); EOS % 1.4 % (0.0-3.0); LYMPH # 1.6 10^3/uL (1.5-5.0); LYMPH % 22.8 % (24.0-44.0); MONO # 0.6 10^3/uL (0.0-0.8); MONO % 8.7 % (2.0-8.0); NEUTROPHILS # 4.6 10^3/uL (1.5-8.5); NEUTROPHILS % 66.5 % (36.0-66.0); PLATELET COUNT, AUTOMATED 224 10^3/uL (150-450)
[2024-12-18 08:28] LABS: CALCIUM LEVEL 8.7 MG/DL (8.3-10.6); CARBON DIOXIDE LEVEL 20.0 MMOL/L (20-31); CHLORIDE LEVEL 117.0 MMOL/L (98-107); CREATININE FOR GFR 2.92 MG/DL (0.55-1.30); GLOMERULAR FILTRATION RATE 16.4 (>39); POTASSIUM SERUM 4.8 MMOL/L (3.5-5.1); SODIUM LEVEL 148.0 MMOL/L (136-145)
[2024-12-18] MEDS: NS 0.45% 1,000 ML IV SCH (17:01)
[2024-12-19 06:00] VITALS: BP 115/63; TEMP 97.7; O2SAT 95
[2024-12-19 07:56] LABS: BASO # 0.0 10^3/uL (0.0-0.2); BASO % 0.4 % (0.0-1.0); EOS # 0.1 10^3/uL (0.0-0.5); EOS % 1.5 % (0.0-3.0); LYMPH # 1.5 10^3/uL (1.5-5.0); LYMPH % 20.4 % (24.0-44.0); MONO # 0.6 10^3/uL (0.0-0.8); MONO % 8.7 % (2.0-8.0); NEUTROPHILS # 5.0 10^3/uL (1.5-8.5); NEUTROPHILS % 68.0 % (36.0-66.0); PLATELET COUNT, AUTOMATED 222 10^3/uL (150-450)
[2024-12-19 08:25] LABS: CALCIUM LEVEL 8.5 MG/DL (8.3-10.6); CARBON DIOXIDE LEVEL 21.0 MMOL/L (20-31); CHLORIDE LEVEL 116.0 MMOL/L (98-107); CREATININE FOR GFR 2.67 MG/DL (0.55-1.30); GLOMERULAR FILTRATION RATE 18.3 (>39); POTASSIUM SERUM 4.5 MMOL/L (3.5-5.1); SODIUM LEVEL 146.0 MMOL/L (136-145)
== END 2024-12-19 13:45 | disposition home or self-care (01) | DRG 683 ==
LOC: M ED 14:55 → M ED INP 14:56 → M MS5PR 23:20 → OBSVTOIN 12-17 15:27
PROVIDERS: ADMIT Student in an Organized Health Care Education/Training Program; ATTEND Internal Medicine Nephrology
PROC: 30233N1 Transfusion of Nonautologous Red Blood Cells into Peripheral Vein, Percutaneous Approach (ICD-10-PCS; principal; 2024-12-18)
DX: N17.9 Acute kidney failure, unspecified (principal); E87.0 Hyperosmolality and hypernatremia; R47.01 Aphasia; N18.4 Chronic kidney disease, stage 4 (severe); N25.1 Nephrogenic diabetes insipidus; I12.9 Hypertensive chronic kidney disease with stage 1 through stage 4 chronic kidney disease, or unspecified chronic kidney disease; E03.9 Hypothyroidism, unspecified; E11.22 Type 2 diabetes mellitus with diabetic chronic kidney disease; C54.1 Malignant neoplasm of endometrium; D50.9 Iron deficiency anemia, unspecified; E21.1 Secondary hyperparathyroidism, not elsewhere classified; G31.84 Mild cognitive impairment of uncertain or unknown etiology; K21.9 Gastro-esophageal reflux disease without esophagitis; F31.9 Bipolar disorder, unspecified; E78.5 Hyperlipidemia, unspecified; G47.33 Obstructive sleep apnea (adult) (pediatric); Z92.21 Personal history of antineoplastic chemotherapy; I34.0 Nonrheumatic mitral (valve) insufficiency; M47.812 Spondylosis without myelopathy or radiculopathy, cervical region; Z86.73 Personal history of transient ischemic attack (TIA), and cerebral infarction without residual deficits; I95.9 Hypotension, unspecified; Z79.899 Other long term (current) drug therapy

== ENCOUNTER → 2024-12-15 | Outpatient (CLI) | payer MEDICARE ==
[~2024-12-15] MED LIST changes: -ISOVUE-370 76% 100 ML VIAL As Ordered ONE
[2024-12-15 13:03] LABS: BASO # 0.1 10^3/uL (0.0-0.2); BASO % 0.3 % (0.0-1.0); EOS # 0.1 10^3/uL (0.0-0.5); EOS % 0.5 % (0.0-3.0); LYMPH # 2.3 10^3/uL (1.5-5.0); LYMPH % 13.0 % (24.0-44.0); MONO # 1.5 10^3/uL (0.0-0.8); MONO % 8.6 % (2.0-8.0); NEUTROPHILS # 13.7 10^3/uL (1.5-8.5); NEUTROPHILS % 77.0 % (36.0-66.0); PLATELET COUNT, AUTOMATED 375 10^3/uL (150-450)
== END ==
LOC: M PLALAB 11:10
PROVIDERS: ATTEND Nurse Practitioner
DX: Z79.899 Other long term (current) drug therapy (principal)

== ENCOUNTER → 2024-12-21 | Outpatient (CLI) | payer MEDICARE | LOC: M WHC 14:05 | PROVIDERS: ATTEND General Practice | DX: C54.1 Malignant neoplasm of endometrium (principal); M81.0 Age-related osteoporosis without current pathological fracture; M85.852 Other specified disorders of bone density and structure, left thigh ==

== ENCOUNTER → 2024-12-23 | Outpatient (CLI) | payer MEDICARE ==
[2024-12-23 15:51] LABS: BASO # 0.0 10^3/uL (0.0-0.2); BASO % 0.3 % (0.0-1.0); EOS # 0.1 10^3/uL (0.0-0.5); EOS % 0.8 % (0.0-3.0); LYMPH # 1.9 10^3/uL (1.5-5.0); LYMPH % 15.8 % (24.0-44.0); MONO # 1.3 10^3/uL (0.0-0.8); MONO % 10.8 % (2.0-8.0); NEUTROPHILS # 8.6 10^3/uL (1.5-8.5); NEUTROPHILS % 71.7 % (36.0-66.0); PLATELET COUNT, AUTOMATED 241 10^3/uL (150-450)
[2024-12-23 15:56] LABS: CORTISOL PM 21.3 UG/DL (3.1-16.7)
[2024-12-23 16:00] LABS: FREE T4 0.93 NG/DL (0.89-1.76)
[2024-12-23 16:22] LABS: ALT/SGPT 35.0 U/L (7.0-40); AST/SGOT 24.0 U/L (<34); CA 125 18.0 U/ML (<35); CALCIUM LEVEL 10.3 MG/DL (8.3-10.6); CARBON DIOXIDE LEVEL 21.0 MMOL/L (20-31); CHLORIDE LEVEL 112.0 MMOL/L (98-107); CREATININE FOR GFR 3.06 MG/DL (0.55-1.30); GLOMERULAR FILTRATION RATE 15.5 (>39); POTASSIUM SERUM 5.7 MMOL/L (3.5-5.1); SODIUM LEVEL 142.0 MMOL/L (136-145); TOTAL T3 88.5 NG/DL (60.0-181.0)
== END ==
LOC: M PLALAB 12:42
PROVIDERS: ATTEND Nurse Practitioner Family
DX: C54.1 Malignant neoplasm of endometrium (principal); R53.83 Other fatigue; Z79.899 Other long term (current) drug therapy; R63.0 Anorexia; R53.1 Weakness; C78.6 Secondary malignant neoplasm of retroperitoneum and peritoneum; N18.4 Chronic kidney disease, stage 4 (severe)

== ENCOUNTER → 2024-12-29 | Outpatient (REF) | payer MEDICARE | LOC: M LAB REF 16:56 | PROVIDERS: ATTEND Internal Medicine Nephrology | DX: N39.0 Urinary tract infection, site not specified (principal) ==

== ENCOUNTER → 2025-01-13 | Outpatient (REF) | payer MEDICARE ==
[~2025-01-13] MED LIST changes: +ALEN70TA82 PO; +CEPH500C PO; +LACT20EL PO; +MEGE1SUS8 PO
[2025-01-13 21:55] LABS: APPEARANCE, URINE CLEAR (CLEAR); BACTERIA, URINE AUTO NEGATIVE (NEGATIVE); BILIRUBIN, URINE AUTO NEGATIVE (NEGATIVE); BLOOD, URINE BLOOD 1+ (NEGATIVE); GLUCOSE, URINE (UA) AUTO NEGATIVE (NEGATIVE); KETONE, URINE AUTO NEGATIVE (NEGATIVE); LEUKOCYTE ESTERASE, URINE AUTO 2+ (NEGATIVE); NITRITE, URINE AUTO NEGATIVE (NEGATIVE); PROTEIN, URINE AUTO 1+ mg/dL (NEGATIVE); RBC, URINE AUTO 1 /HPF (0-3); SPECIFIC GRAVITY URINE AUTO 1.006 (1.002-1.035); SQUAMOUS EPITHELIAL CELL UR AU 1 /HPF (0-6); UROBILINOGEN, URINE AUTO 0.2 mg/dL (0.0-2.0); WBC, URINE AUTO 11 /HPF (0-3)
== END ==
LOC: M LAB REF 21:19
PROVIDERS: ATTEND Physician Assistant
DX: N39.0 Urinary tract infection, site not specified (principal)

== ENCOUNTER 2025-01-16 12:49 | Inpatient (IN) | payer MEDICARE ==
[~2025-01-16] VITALS: Ht 172.7 cm; Wt 60.6 kg
[~2025-01-16 12:49] MED LIST changes: -CEPH500C PO; -MEGE1SUS8 PO
[2025-01-16] MEDS ORDERED: ISOVUE-370 76% 100 ML VIAL As Ordered ONE (13:05)
[2025-01-16 13:24] LABS: BASO # 0.0 10^3/uL (0.0-0.2); BASO % 0.3 % (0.0-1.0); EOS # 0.2 10^3/uL (0.0-0.5); EOS % 1.6 % (0.0-3.0); LYMPH # 1.5 10^3/uL (1.5-5.0); LYMPH % 14.3 % (24.0-44.0); MONO # 0.9 10^3/uL (0.0-0.8); MONO % 8.4 % (2.0-8.0); NEUTROPHILS # 7.6 10^3/uL (1.5-8.5); NEUTROPHILS % 74.8 % (36.0-66.0); PLATELET COUNT, AUTOMATED 252 10^3/uL (150-450)
[2025-01-16] MEDS ORDERED: SODIUM CHLORIDE 0.9% INJ 10 ML SYR IV PRN (13:35)
[2025-01-16] MEDS ORDERED: HEPARIN LOCK FLUSH 100 UNITS/ML 3 ML SYRINGE IV PRN (13:35)
[2025-01-16 13:45] LABS: INR 1.03
[2025-01-16 13:58] LABS: VALPROIC ACID (DEPAKOTE) 90.4 UG/ML (50.0-100.0)
[2025-01-16 13:59] LABS: ALT/SGPT 23.0 U/L (7.0-40); AST/SGOT 26.0 U/L (<34); CALCIUM LEVEL 10.4 MG/DL (8.3-10.6); CARBON DIOXIDE LEVEL 22.0 MMOL/L (20-31); CHLORIDE LEVEL 106.0 MMOL/L (98-107); CREATININE FOR GFR 2.88 MG/DL (0.55-1.30); GLOMERULAR FILTRATION RATE 16.7 (>39); POTASSIUM SERUM 4.7 MMOL/L (3.5-5.1); SODIUM LEVEL 139.0 MMOL/L (136-145)
[2025-01-16 14:01] LABS: LITHIUM LEVEL 1.16 MMOL/L (1.0-1.20)
[2025-01-16] MEDS: NS (Normal Saline) 0.9% 1,000 ML IV ONE (14:35)
[2025-01-16 14:59] LABS: APPEARANCE, URINE HAZY (CLEAR); BACTERIA, URINE AUTO NEGATIVE (NEGATIVE); BILIRUBIN, URINE AUTO NEGATIVE (NEGATIVE); BLOOD, URINE BLOOD NEGATIVE (NEGATIVE); GLUCOSE, URINE (UA) AUTO NEGATIVE (NEGATIVE); KETONE, URINE AUTO NEGATIVE (NEGATIVE); LEUKOCYTE ESTERASE, URINE AUTO 1+ (NEGATIVE); MUCUS, URINE SMALL (NEGATIVE); NITRITE, URINE AUTO NEGATIVE (NEGATIVE); PROTEIN, URINE AUTO 1+ mg/dL (NEGATIVE); RBC, URINE AUTO 1 /HPF (0-3); SPECIFIC GRAVITY URINE AUTO 1.010 (1.002-1.035); SQUAMOUS EPITHELIAL CELL UR AU 2 /HPF (0-6); UROBILINOGEN, URINE AUTO 0.2 mg/dL (0.0-2.0); WBC, URINE AUTO 17 /HPF (0-3)
[2025-01-16] MEDS ORDERED: NS (Normal Saline) 0.9% 1,000 ML IV SCH (16:20)
[2025-01-16] MEDS ORDERED: ALEN70TA82 PO (16:51)
[2025-01-16] MEDS ORDERED: CEPH500C PO (16:51)
[2025-01-16] MEDS ORDERED: MEGE1SUS8 PO (16:51)
[2025-01-16] MEDS ORDERED: LACT20EL PO (16:51)
[2025-01-16] MEDS ORDERED: HOME MED LIST COMPLETE! XX SCH (16:55)
[2025-01-16] MEDS: NS (Normal Saline) 0.9% 1,000 ML IV SCH (17:30)
[2025-01-16 18:13] VITALS: BP 102/55; TEMP 98.7; O2SAT 95
[2025-01-16] MEDS: NS 500 ML IV ONE (18:57)
[2025-01-16] MEDS ORDERED: ACETAMINOPHEN 325 MG/10.15 ML UDC GT PRN (19:05)
[2025-01-16 21:11] VITALS: BP 93/54; TEMP 97.2; O2SAT 96
[2025-01-16] MEDS: LACTULOSE 20 GM/30 ML SYRUP UDC PO SCH (21:17)
[2025-01-16] MEDS: BISACODYL 10 MG SUPP PR ONE (21:18)
[2025-01-16] MEDS: ROSUVASTATIN 10 MG TAB PO SCH (21:18)
[2025-01-16] MEDS: SOLIFENACIN 5 MG TAB PO SCH (21:18)
[2025-01-16] MEDS: POLYVINYL ALCOHOL OPHTH SOLN 15ML (LIQUITEARS) OU SCH (21:18)
[2025-01-17 04:22] VITALS: BP 111/61; TEMP 97.8; O2SAT 94
[2025-01-17 06:48] LABS: BASO # 0.0 10^3/uL (0.0-0.2); BASO % 0.5 % (0.0-1.0); EOS # 0.2 10^3/uL (0.0-0.5); EOS % 3.0 % (0.0-3.0); LYMPH # 1.0 10^3/uL (1.5-5.0); LYMPH % 17.1 % (24.0-44.0); MONO # 0.5 10^3/uL (0.0-0.8); MONO % 8.5 % (2.0-8.0); NEUTROPHILS # 4.0 10^3/uL (1.5-8.5); NEUTROPHILS % 70.4 % (36.0-66.0); PLATELET COUNT, AUTOMATED 179 10^3/uL (150-450)
[2025-01-17 07:12] LABS: CALCIUM LEVEL 9.2 MG/DL (8.3-10.6); CARBON DIOXIDE LEVEL 16.0 MMOL/L (20-31); CHLORIDE LEVEL 115.0 MMOL/L (98-107); CREATININE FOR GFR 2.46 MG/DL (0.55-1.30); GLOMERULAR FILTRATION RATE 20.2 (>39); POTASSIUM SERUM 4.1 MMOL/L (3.5-5.1); SODIUM LEVEL 143.0 MMOL/L (136-145)
[2025-01-17] MEDS: MIDODRINE 2.5 MG TAB PO SCH (09:38)
[2025-01-17 12:00] VITALS: BP 110/62; TEMP 98; O2SAT 99
[2025-01-17] MEDS: PNEUMOC 21-VAL CONJ-DIP CRM/PF 0.5 ML SYRINGE IM.IMMUN ONE (15:58)
[2025-01-17 20:20] VITALS: BP 98/53; TEMP 97.6; O2SAT 100
[2025-01-17] MEDS ORDERED: LACTULOSE 20 GM/30 ML SYRUP UDC PR SCH ×2 (21:00)
[2025-01-17] MEDS: LACTULOSE 20 GM/30 ML SYRUP UDC PO SCH (21:00)
[2025-01-17] MEDS: DIVALPROEX 250 MG TAB PO SCH (21:11)
[2025-01-17 22:32] VITALS: BP 103/60
[2025-01-18] MEDS: DIVALPROEX SPRINKLE 125 MG CAP PO SCH (00:07)
[2025-01-18 04:29] VITALS: BP 100/64; TEMP 97.4; O2SAT 97
[2025-01-18 06:30] LABS: BASO # 0.0 10^3/uL (0.0-0.2); BASO % 0.3 % (0.0-1.0); EOS # 0.3 10^3/uL (0.0-0.5); EOS % 3.0 % (0.0-3.0); LYMPH # 1.4 10^3/uL (1.5-5.0); LYMPH % 15.0 % (24.0-44.0); MONO # 0.9 10^3/uL (0.0-0.8); MONO % 9.3 % (2.0-8.0); NEUTROPHILS # 6.6 10^3/uL (1.5-8.5); NEUTROPHILS % 71.5 % (36.0-66.0); PLATELET COUNT, AUTOMATED 218 10^3/uL (150-450)
[2025-01-18 07:02] LABS: CALCIUM LEVEL 9.0 MG/DL (8.3-10.6); CARBON DIOXIDE LEVEL 20.0 MMOL/L (20-31); CHLORIDE LEVEL 112.0 MMOL/L (98-107); CREATININE FOR GFR 2.17 MG/DL (0.55-1.30); GLOMERULAR FILTRATION RATE 23.5 (>39); POTASSIUM SERUM 4.1 MMOL/L (3.5-5.1); SODIUM LEVEL 143.0 MMOL/L (136-145)
[2025-01-18 07:03] LABS: LITHIUM LEVEL 0.85 MMOL/L (1.0-1.20)
[2025-01-18] MEDS ORDERED: LACTULOSE 20 GM/30 ML SYRUP UDC PR SCH (09:00)
[2025-01-18] MEDS: cefTRIAXone SOD 1 GM in DEXTROSE 5% (D5W) ADV/MINI-BAG 50 ML IV SCH (14:25)
[2025-01-18 20:43] VITALS: BP 122/72; TEMP 98.3; O2SAT 96
[2025-01-18] MEDS: LITHIUM CARBONATE 150 MG CAP PO SCH (21:11)
[2025-01-19 03:47] VITALS: BP 120/83; TEMP 97.3; O2SAT 96
[2025-01-19 06:13] LABS: BASO # 0.0 10^3/uL (0.0-0.2); BASO % 0.5 % (0.0-1.0); EOS # 0.3 10^3/uL (0.0-0.5); EOS % 4.0 % (0.0-3.0); LYMPH # 1.2 10^3/uL (1.5-5.0); LYMPH % 15.8 % (24.0-44.0); MONO # 0.7 10^3/uL (0.0-0.8); MONO % 8.5 % (2.0-8.0); NEUTROPHILS # 5.4 10^3/uL (1.5-8.5); NEUTROPHILS % 69.9 % (36.0-66.0); PLATELET COUNT, AUTOMATED 184 10^3/uL (150-450)
[2025-01-19 06:43] LABS: CALCIUM LEVEL 9.2 MG/DL (8.3-10.6); CARBON DIOXIDE LEVEL 20.0 MMOL/L (20-31); CHLORIDE LEVEL 116.0 MMOL/L (98-107); CREATININE FOR GFR 2.04 MG/DL (0.55-1.30); GLOMERULAR FILTRATION RATE 25.3 (>39); POTASSIUM SERUM 4.2 MMOL/L (3.5-5.1); SODIUM LEVEL 146.0 MMOL/L (136-145)
[2025-01-19 12:22] VITALS: BP 108/61; TEMP 98.9; O2SAT 98
[2025-01-19 20:03] VITALS: BP 125/63; TEMP 98.3; O2SAT 99
[2025-01-19] MEDS: VALPROIC ACID 250MG/5ML SOL ORAL SYRINGE PO SCH (21:29)
[2025-01-20 04:58] VITALS: BP 107/54; TEMP 98.3; O2SAT 99
[2025-01-20 06:41] LABS: BASO # 0.0 10^3/uL (0.0-0.2); BASO % 0.4 % (0.0-1.0); EOS # 0.3 10^3/uL (0.0-0.5); EOS % 4.3 % (0.0-3.0); LYMPH # 1.5 10^3/uL (1.5-5.0); LYMPH % 18.7 % (24.0-44.0); MONO # 0.7 10^3/uL (0.0-0.8); MONO % 8.4 % (2.0-8.0); NEUTROPHILS # 5.3 10^3/uL (1.5-8.5); NEUTROPHILS % 66.6 % (36.0-66.0); PLATELET COUNT, AUTOMATED 230 10^3/uL (150-450)
[2025-01-20 07:15] LABS: CALCIUM LEVEL 9.2 MG/DL (8.3-10.6); CARBON DIOXIDE LEVEL 20.0 MMOL/L (20-31); CHLORIDE LEVEL 116.0 MMOL/L (98-107); CREATININE FOR GFR 1.93 MG/DL (0.55-1.30); GLOMERULAR FILTRATION RATE 27.0 (>39); LITHIUM LEVEL 0.61 MMOL/L (1.0-1.20); POTASSIUM SERUM 4.1 MMOL/L (3.5-5.1); SODIUM LEVEL 147.0 MMOL/L (136-145)
[2025-01-20 12:00] VITALS: BP 122/64; TEMP 97.2; O2SAT 97
[2025-01-20 20:38] VITALS: BP 121/60; TEMP 98.2; O2SAT 96
[2025-01-20] MEDS: DIVALPROEX SPRINKLE 125 MG CAP PO SCH (21:42)
[2025-01-21 06:51] LABS: BASO # 0.0 10^3/uL (0.0-0.2); BASO % 0.4 % (0.0-1.0); EOS # 0.3 10^3/uL (0.0-0.5); EOS % 4.3 % (0.0-3.0); LYMPH # 1.6 10^3/uL (1.5-5.0); LYMPH % 20.4 % (24.0-44.0); MONO # 0.7 10^3/uL (0.0-0.8); MONO % 9.0 % (2.0-8.0); NEUTROPHILS # 5.2 10^3/uL (1.5-8.5); NEUTROPHILS % 65.0 % (36.0-66.0); PLATELET COUNT, AUTOMATED 225 10^3/uL (150-450)
[2025-01-21 07:18] LABS: CALCIUM LEVEL 9.5 MG/DL (8.3-10.6); CARBON DIOXIDE LEVEL 19.0 MMOL/L (20-31); CHLORIDE LEVEL 114.0 MMOL/L (98-107); CREATININE FOR GFR 1.81 MG/DL (0.55-1.30); GLOMERULAR FILTRATION RATE 29.2 (>39); POTASSIUM SERUM 3.9 MMOL/L (3.5-5.1); SODIUM LEVEL 144.0 MMOL/L (136-145)
[2025-01-21 11:58] VITALS: BP 121/69; TEMP 96.9; O2SAT 99
[2025-01-21 19:50] VITALS: BP 112/58; TEMP 98.1; O2SAT 95
[2025-01-21] MEDS: MIRTAZAPINE 7.5 MG PER 1/2 TABLET PO SCH (21:24)
[2025-01-22 03:48] VITALS: BP 102/59; TEMP 98.3; O2SAT 98
[2025-01-22 06:23] LABS: BASO # 0.0 10^3/uL (0.0-0.2); BASO % 0.5 % (0.0-1.0); EOS # 0.2 10^3/uL (0.0-0.5); EOS % 3.5 % (0.0-3.0); LYMPH # 1.7 10^3/uL (1.5-5.0); LYMPH % 26.2 % (24.0-44.0); MONO # 0.6 10^3/uL (0.0-0.8); MONO % 10.0 % (2.0-8.0); NEUTROPHILS # 3.7 10^3/uL (1.5-8.5); NEUTROPHILS % 59.0 % (36.0-66.0); PLATELET COUNT, AUTOMATED 194 10^3/uL (150-450)
[2025-01-22 06:50] LABS: CALCIUM LEVEL 9.0 MG/DL (8.3-10.6); CARBON DIOXIDE LEVEL 20.0 MMOL/L (20-31); CHLORIDE LEVEL 116.0 MMOL/L (98-107); CREATININE FOR GFR 1.86 MG/DL (0.55-1.30); GLOMERULAR FILTRATION RATE 28.3 (>39); POTASSIUM SERUM 4.1 MMOL/L (3.5-5.1); SODIUM LEVEL 148.0 MMOL/L (136-145)
[2025-01-22 12:00] VITALS: BP 103/55; TEMP 98; O2SAT 100
[2025-01-22] MEDS: LIDOCAINE 5% PATCH TD SCH (13:43)
[2025-01-22] MEDS: ACETAMINOPHEN 325 MG/10.15 ML UDC PO PRN (17:14)
[2025-01-22 20:41] VITALS: BP 111/61; TEMP 98.9; O2SAT 100
[2025-01-23 05:56] VITALS: BP 114/58; TEMP 98.3; O2SAT 95
[2025-01-23 05:58] LABS: PLATELET COUNT, AUTOMATED 217 10^3/uL (150-450)
[2025-01-23 06:29] LABS: CALCIUM LEVEL 9.5 MG/DL (8.3-10.6); CARBON DIOXIDE LEVEL 23.0 MMOL/L (20-31); CHLORIDE LEVEL 118.0 MMOL/L (98-107); CREATININE FOR GFR 1.94 MG/DL (0.55-1.30); GLOMERULAR FILTRATION RATE 26.9 (>39); POTASSIUM SERUM 4.5 MMOL/L (3.5-5.1); SODIUM LEVEL 150.0 MMOL/L (136-145)
[2025-01-23] MEDS: D5W 1,000 ML IV SCH (08:41)
[2025-01-23 12:00] VITALS: BP 105/53; TEMP 98.6; O2SAT 100
[2025-01-23 12:30] VITALS: BP 119/58
[2025-01-23 12:31] VITALS: BP 124/68
[2025-01-23] MEDS: MAGIC MOUTHWASH 5 ML ORAL SYRINGE SSP PRN (15:26)
[2025-01-23 20:43] VITALS: BP 115/54; TEMP 98.1; O2SAT 97
[2025-01-24 03:55] VITALS: BP 104/54; TEMP 98.4; O2SAT 96
[2025-01-24 06:50] LABS: PLATELET COUNT, AUTOMATED 222 10^3/uL (150-450)
[2025-01-24 07:14] LABS: CALCIUM LEVEL 9.2 MG/DL (8.3-10.6); CARBON DIOXIDE LEVEL 22.0 MMOL/L (20-31); CHLORIDE LEVEL 115.0 MMOL/L (98-107); CREATININE FOR GFR 1.83 MG/DL (0.55-1.30); GLOMERULAR FILTRATION RATE 28.8 (>39); POTASSIUM SERUM 4.4 MMOL/L (3.5-5.1); SODIUM LEVEL 146.0 MMOL/L (136-145)
[2025-01-24 12:00] VITALS: BP 104/51; TEMP 98.6; O2SAT 99
[2025-01-24] MEDS ORDERED: MIDO2.5T3 PO (14:09)
[2025-01-24] MEDS ORDERED: DIVA125C6 PO (14:09)
[2025-01-24] MEDS ORDERED: MAGICMW SSP (14:09)
[2025-01-24] MEDS ORDERED: MIRT-10 PO (14:09)
[2025-01-24] MEDS ORDERED: LITH150C PO (14:09)
[2025-01-24 16:00] VITALS: BP 111/62
[2025-01-24 19:32] VITALS: BP 115/55; TEMP 98.4; O2SAT 97
[2025-01-25 03:26] VITALS: BP 107/58; TEMP 97.3; O2SAT 98
== END 2025-01-25 11:51 | DRG 92 ==
LOC: M ED 12:49 → M ED INP 16:33 → M MSPAV 18:14
PROVIDERS: ADMIT Internal Medicine Nephrology; ATTEND Student in an Organized Health Care Education/Training Program
DX: G92.8 Other toxic encephalopathy (principal); N18.4 Chronic kidney disease, stage 4 (severe); N25.1 Nephrogenic diabetes insipidus; N39.0 Urinary tract infection, site not specified; E87.0 Hyperosmolality and hypernatremia; F31.9 Bipolar disorder, unspecified; I34.0 Nonrheumatic mitral (valve) insufficiency; D64.9 Anemia, unspecified; R63.4 Abnormal weight loss; E78.5 Hyperlipidemia, unspecified; M81.0 Age-related osteoporosis without current pathological fracture; M47.812 Spondylosis without myelopathy or radiculopathy, cervical region; G47.33 Obstructive sleep apnea (adult) (pediatric); K21.9 Gastro-esophageal reflux disease without esophagitis; E86.0 Dehydration; R53.83 Other fatigue; T42.6X5A Adverse effect of other antiepileptic and sedative-hypnotic drugs, initial encounter; K59.00 Constipation, unspecified; I95.89 Other hypotension; R53.1 Weakness; F03.B0 Unspecified dementia, moderate, without behavioral disturbance, psychotic disturbance, mood disturbance, and anxiety; Z92.3 Personal history of irradiation; C54.1 Malignant neoplasm of endometrium; Z92.21 Personal history of antineoplastic chemotherapy; M19.90 Unspecified osteoarthritis, unspecified site; Z79.899 Other long term (current) drug therapy; Z86.73 Personal history of transient ischemic attack (TIA), and cerebral infarction without residual deficits

== ENCOUNTER 2025-01-19 08:52 | Outpatient (RCR) | payer MEDICARE ==
[~2025-01-19 08:52] MED LIST changes: +CEPH500C PO; +MEGE1SUS8 PO
[2025-01-24] MEDS ORDERED: MIDO2.5T3 PO (14:09)
[2025-01-24] MEDS ORDERED: MIRT-10 PO (14:09)
[2025-01-24] MEDS ORDERED: LITH150C PO (14:09)
[2025-01-24] MEDS ORDERED: DIVA125C6 PO (14:09)
[2025-01-24] MEDS ORDERED: MAGICMW SSP (14:09)
== END 2025-01-23 ==
LOC: M ONCR 08:52
PROVIDERS: ATTEND General Practice
DX: Z51.0 Encounter for antineoplastic radiation therapy (principal); C54.1 Malignant neoplasm of endometrium

== ENCOUNTER → 2025-01-31 | Outpatient (REF) ==
[~2025-01-31] MED LIST changes: +DIVA125C6 PO; +LIDO1ADH93 TOP; +MAGICMW SSP; +MIDO2.5T3 PO; +MIRT-10 PO; +PRED5TA PO
[2025-01-31 07:19] LABS: PLATELET COUNT, AUTOMATED 198 10^3/uL (150-450)
[2025-01-31 07:42] LABS: CALCIUM LEVEL 9.3 MG/DL (8.3-10.6); CARBON DIOXIDE LEVEL 24.0 MMOL/L (20-31); CHLORIDE LEVEL 113.0 MMOL/L (98-107); CREATININE FOR GFR 1.94 MG/DL (0.55-1.30); GLOMERULAR FILTRATION RATE 26.9 (>39); LITHIUM LEVEL 0.35 MMOL/L (1.0-1.20); POTASSIUM SERUM 4.8 MMOL/L (3.5-5.1); SODIUM LEVEL 144.0 MMOL/L (136-145)
== END ==
LOC: SKLAB2 07:00
PROVIDERS: ATTEND Family Medicine
DX: F31.9 Bipolar disorder, unspecified (principal)

== ENCOUNTER → 2025-02-01 | Outpatient (REF) | payer MEDICARE | LOC: SKLAB2 12:47 | PROVIDERS: ATTEND Family Medicine | DX: F31.9 Bipolar disorder, unspecified (principal) ==

== ENCOUNTER → 2025-02-04 | Outpatient (REF) | payer MEDICARE | LOC: SKLAB2 11:27 | PROVIDERS: ATTEND Family Medicine | DX: Z53.8 Procedure and treatment not carried out for other reasons (principal) ==

== ENCOUNTER → 2025-02-07 | Outpatient (REF) | payer MEDICARE ==
[2025-02-07 09:02] LABS: PLATELET COUNT, AUTOMATED 263 10^3/uL (150-450)
[2025-02-07 09:28] LABS: CALCIUM LEVEL 10.3 MG/DL (8.3-10.6); CARBON DIOXIDE LEVEL 24.0 MMOL/L (20-31); CHLORIDE LEVEL 114.0 MMOL/L (98-107); CREATININE FOR GFR 2.01 MG/DL (0.55-1.30); GLOMERULAR FILTRATION RATE 25.7 (>39); PHOSPHORUS LEVEL 4.2 MG/DL (2.4-5.1); POTASSIUM SERUM 4.4 MMOL/L (3.5-5.1); SODIUM LEVEL 148.0 MMOL/L (136-145)
[2025-02-07 09:29] LABS: PTH INTACT 53.0 PG/ML (18.5-88.0)
== END ==
LOC: SKLAB2 07:00
PROVIDERS: ATTEND Family Medicine
DX: N18.9 Chronic kidney disease, unspecified (principal)

== ENCOUNTER → 2025-02-19 | Outpatient (REF) | payer MEDICARE | LOC: SKLAB2 19:50 | PROVIDERS: ATTEND Family Medicine | DX: R41.82 Altered mental status, unspecified (principal); Z53.8 Procedure and treatment not carried out for other reasons ==

== ENCOUNTER → 2025-02-20 | Outpatient (REF) | payer MEDICARE ==
[2025-02-20 10:38] LABS: PLATELET COUNT, AUTOMATED 288 10^3/uL (150-450)
[2025-02-20 11:03] LABS: CALCIUM LEVEL 9.1 MG/DL (8.3-10.6); CARBON DIOXIDE LEVEL 19.0 MMOL/L (20-31); CHLORIDE LEVEL 112.0 MMOL/L (98-107); CREATININE FOR GFR 2.19 MG/DL (0.55-1.30); GLOMERULAR FILTRATION RATE 23.2 (>39); POTASSIUM SERUM 4.6 MMOL/L (3.5-5.1); SODIUM LEVEL 141.0 MMOL/L (136-145)
== END ==
LOC: SKLAB2 10:04
PROVIDERS: ATTEND Nurse Practitioner Family
DX: R41.82 Altered mental status, unspecified (principal)

== ENCOUNTER → 2025-02-21 | Outpatient (REF) | payer MEDICARE ==
[2025-02-21 14:12] LABS: VALPROIC ACID (DEPAKOTE) 46.9 UG/ML (50.0-100.0)
[2025-02-21 14:16] LABS: LITHIUM LEVEL 0.3 MMOL/L (1.0-1.20)
== END ==
LOC: SKLAB2 12:43
PROVIDERS: ATTEND Family Medicine
DX: R41.82 Altered mental status, unspecified (principal)

== ENCOUNTER → 2025-02-23 | Outpatient (RCR) | payer MEDICARE ==
[~2025-02-23] MED LIST changes: +PRED25TA PO
== END ==
LOC: M ONCR 01-24 09:32
PROVIDERS: ATTEND General Practice
DX: Z51.0 Encounter for antineoplastic radiation therapy (principal); C54.1 Malignant neoplasm of endometrium